=== PATIENT | male | born 1965 | race Caucasian/White ===

== ENCOUNTER 2020-02-12 17:16 | Emergency (ER) | payer OTHER, SELFPAY ==
[2020-02-12 17:35] VITALS: BP 97/58; PULSE 71; RESP 20; TEMP 36.7; BMI 22.8
--- NOTE | 2020-02-12 17:46 | ECG_ITS ---
Test Reason : SYNCOPY Blood Pressure : / mmHG Vent. Rate : 057 BPM Atrial Rate : 057 BPM P-R Int : 184 ms QRS Dur : 132 ms QT Int : 412 ms P-R-T Axes : 055 -43 019 degrees QTc Int : 401 ms Sinus bradycardia Left axis deviation Right bundle branch block Abnormal ECG When compared with ECG of 25-JAN-2015 16:54, Vent. rate has decreased BY 63 BPM Right bundle branch block has replaced Incomplete right bundle branch block Referred By: Yasmeen Cooper Electronically Signed By:REGINE WEAVER MD
--- NOTE | 2020-02-12 17:57 | XR_ITS ---
EXAMINATION: XR CHEST CLINICAL INFORMATION: Syncope. COMPARISON: 08/11/2017. TECHNIQUE: Frontal view of the chest was obtained. FINDINGS: No significant abnormality is noted involving the heart, lungs, mediastinum, bony thorax or soft tissues. XR/XR chest 1V IMPRESSION: Unremarkable examination.
--- NOTE | 2020-02-12 17:58 | CT_ITS ---
EXAMINATION: CT HEAD WITHOUT CONTRAST CT CERVICAL SPINE WITHOUT CONTRAST CLINICAL INFORMATION: Fall COMPARISON: CT head dated 01/17/2015. TECHNIQUE: Multidetector CT imaging of the head and cervical spine was performed without the use of intravenous contrast. Multiplanar reformats are reviewed. DLP: 984 mGy-cm. FINDINGS: There is a 3.5 x 4.0 x 3.1 cm fairly extra-axial mass within the left middle cranial fossa centered along the sphenoid ridge, with surrounding vasogenic edema within the left inferior frontal and adjacent left temporal lobes. No acute intracranial hemorrhage. There is mild mass effect resulting in partial effacement of the left temporal horn of the left lateral ventricle and medialization of the left parahippocampal gyrus. No herniation pattern. No extra-axial fluid collections are identified. The osseous structures and soft tissues are normal. The mastoid air cells and visualized portions of the paranasal sinuses are well-aerated. Atlantooccipital alignment is maintained. The vertebral bodies and posterior elements align normally. No acute fracture or subluxation. Vertebral body heights are maintained. Small endplate osteophytes present throughout the lower cervical spine. The paraspinal soft tissues are unremarkable. The imaged lung apices are clear CT/CT cervical spine wo con IMPRESSION: * No acute intracranial pathology. * There is a 4 cm extra-axial mass along the left sphenoid ridge favored representing a meningioma. There are surrounding low-attenuation changes within the left frontal and temporal lobes favored to represent perilesional edema. MRI of the brain without and with contrast recommended for further evaluation. * No cervical spine fracture or subluxation.
[2020-02-12 18:13] LABS: Basophils Absolute Auto 0.1 X10*3/uL (0.0-0.2); Eosinophils Absolute Auto 0.3 X10*3/uL (0.0-0.4); Eosinophils Percent Auto 3.4 % (0-4); Hematocrit 39.3 % (42-52); Hemoglobin 13.4 g/dl (14.0-18.0); Imm Gran Abs Auto 0.02 X10*3/uL (0.00-0.03); Imm Gran Pct Auto 0.3 % (0.0-0.4); Lymphocytes Absolute Auto 1.6 X10*3/uL (1.2-4.9); Lymphocytes Percent Auto 21.1 % (20-40); Mean Corpuscular HGB Conc 34.1 g/dl (31.0-36.0); Mean Corpuscular Hemoglobin 31.5 pg (27.0-33.0); Mean Corpuscular Volume 92.5 fL (80-98); Mean Platelet Volume 9.1 fL (9.4-12.4); Monocytes Absolute Auto 0.6 X10*3/uL (0.1-1.2); Monocytes Percent Auto 8.3 % (2-11); Neutrophils Percent Auto 65.9 % (45-73); Platelet Count 285 X10*3/uL (160-400); Red Blood Count 4.25 X10*6/uL (4.60-5.80); Red Cell Distribution Width 13.2 % (11.0-16.0); White Blood Count 7.6 X10*3/uL (4.8-10.8)
[2020-02-12 18:14] LABS: MANUAL DIFF FLAG NO
[2020-02-12 18:16] VITALS: O2SAT 98
[2020-02-12 18:40] LABS: Anion Gap 13 (12-20); Blood Urea Nitrogen 18 mg/dL (9-16); Calcium 8.6 mg/dL (8.4-10.2); Carbon Dioxide 29 mmol/L (22-29); Chloride 103 mmol/L (96-108); Creatinine Clr Calc Pharmacy 81.9; Estimated Glomerular Filt Rate > 60; Glucose Random 79 mg/dL (60-115); Potassium 3.8 mmol/l (3.3-5.1); Sodium 141 mmol/L (135-145)
[2020-02-12 18:44] LABS: Troponin-I High Sensitivity < 3.5 ng/L (<3.5-35.0)
--- NOTE | 2020-02-12 19:27 | ED_ITS ---
HPI - Syncope General Chief Complaint: Syncope Stated Complaint: Fall/Head Injury Time Seen by Provider: 02/12/20 17:57 Source: patient Mode of arrival: ambulatory Limitations: no limitations History of Present Illness HPI narrative: 55-year-old male with past medical history of Chronic headaches, hypertension and anxiety presents with an episode of syncope, and a head laceration. 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 He was sitting in a chair, did not hit his head or lose continence of bowel and bladder. He denies any symptoms at this time, denies chest pain or pressure, palpitations, shortness breath, abdominal pain, abdominal distention, dysuria, hematuria, and any other concerning symptoms. He does not recall when his last Tdap vaccine was given. MD complaint: loss of consciousness Onset (ago): minute(s) ( prior to arrival) -: second(s) Prodromal symptoms: headache Witnessed: Yes - by Bystander Context: other ( during wound care) Injuries sustained associated with event: none and other ( head laceration sustained prior to the syncopal episode) Current symptoms: back to baseline Treatments prior to arrival: none Related Data Home Medications Medication Instructions Recorded Confirmed albuterol sulfate 90 mcg/actuation INHALATION 01/26/20 aerosol inhaler amlodipine 2.5 mg tablet 2.5 mg PO DAILY 01/26/20 bupropion HCl 150 mg tablet,12 hr 150 mg PO BID 01/26/20 sustained-release clonazepam 1 mg tablet 1 mg PO BEDTIME PRN 01/26/20 fluoxetine 10 mg capsule 10 mg PO QAM 01/26/20 Previous Rx's Medication Instructions Recorded gltvbyrvrb-dnrpvureqnksk-nnrb 1 cap PO Q4-6H PRN #30 cap 02/12/20 [Fioricet] Allergies Allergy/AdvReac Type Severity Reaction Status Date / Time No Known Allergies Allergy Verified 01/24/20 12:04 [No Known Allergies*] Review of Systems Review of Systems: Constitutional: No Weight loss, No Fever, No Chills, No Night Sweats, No Fatigue, No Malaise ENT/Mouth: No Hearing loss, No Ear Pain, No Nasal Congestion, No Sinus Pain, No Hoarseness, No sore throat, No Rhinorrhea, No Swallowing Difficulty Eyes: No Eye Pain, No Swelling, No Redness, No Foreign Body, No Discharge, No Vision Changes Cardiovascular: No Chest Pain, No SOB, No Dyspnea on Exertion, No Orthopnea, No Edema, No Palpitations Respiratory: No Cough, No Sputum, No Wheezing, No Smoke Exposure, No Dyspnea Gastrointestinal: No Nausea, No Vomiting, No Diarrhea, No Constipation, No abdominal Pain, No Hematochezia, No Melena Genitourinary: no irregular bleeding, No Dysuria, No Urinary Frequency, No Hematuria, No Urinary Incontinence, No Urgency, No Flank Pain, No Urinary Flow Changes, No Hesitancy Musculoskeletal: No joint pain, No Myalgias, No Joint Swelling Skin: positive laceration to the top of his head, otherwise No Skin Lesions, No rash Neuro: positive syncope, positive headache, No Weakness, No Numbness, No Paresthesias, No Loss of Consciousness, No Dizziness Psych: No Anxiety/Panic, No Depression, No SI/HI/AH/VH, No Social Issues Heme/Lymph: No Bruising, No Bleeding,No Lymphadenopathy Endocrine: No Polyuria, No Polydipsia, No Temperature Intolerance Yes all other systems are reviewed and are negative [facility] Past Medical History Attestation statement: The following information was validated with the patient. Medical History (Updated 02/12/20 @ 19:32 by Yasmeen Cooper NP) Asthma Dermatitis Dyslipidemia Enlarged prostate HTN (hypertension) Psoriasis Renal calculi Surgical History History of deviated nasal septum History of kidney stones Family History Family History Father No problems noted. Mother Alzheimer's disease Sister No problems noted. Sister No problems noted. Daughter No problems noted. Daughter No problems noted. Social History Social History Alcohol intake: unknown Smoking Status: Unknown if ever smoked Tobacco Type: Cigarette Use of substances other than those prescribed or required for medical reasons: No Advance Directives: No Advance Directives Information Provided: Yes Physical Exam Vital Signs: Vital Signs: Last Vital Signs Temp 98.1 F 02/12/20 20:00 Pulse 70 02/12/20 20:00 Resp 20 02/12/20 20:00 BP 101/58 L 02/12/20 20:00 Pulse Ox 98 02/12/20 20:00 Body Mass Index 22.8 Appearance: Alert. Oriented X3. No acute distress. Head: Normal external exam. Normocephalic. Atraumatic. No Rosario signs noted. No raccoon eyes noted Eyes: PERRLA. EOMI. Conjunctiva and sclera normal. Eyelids normal. ENT: TM's Normal. Pharynx normal. Uvula midline. Moist mucous membranes. No trismus noted. No drooling noted. No muffled voice noted. Neck: Normal inspection. Neck supple. No adenopathy. Thyroid Normal. No meningeal signs. No neck mass noted. CVS: Normal heart rate and rhythm. Heart sound normal. No murmurs noted. Pulses equal to all extremities. Respiratory: No respiratory distress. Painless inspiration. Breath sounds normal. No wheezes/rales/rhonchi noted. Chest nontender. No accessory muscle usage noted or decreased air movement noted. Abdomen: Soft and nontender. Bowel sounds normal in all 4 quadrants. No distention noted. No organomegaly noted. No visible injury noted. Back: No CVA tenderness. Full range of motion noted. Skin: 4 cm superficial laceration -abrasion in linear formation to the scalp at the crown of the head, Skin warm and dry. Normal skin color. Normal skin turgor. No rashes/lesions/lacerations noted. Extremities: No lower extremity edema. Extremities exhibit normal range of motion. Extremities nontender. Neuro: cranial nerves 2-12 intact, no focal neural deficits, strength 5/5 to all extremities, No motor deficit. No sensory deficit. Reflexes normal. 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 He was seated at the time, and does not describe any other injuries. will rule out ACS, dehydration, and organic brain problems. CBC Chem 7-, troponins are negative. CT scan of the head shows a 4 cm meningioma, this finding was discussed in detail with the patient, patient requested to see the CT scan. CT scan was shown to the patient, meningioma area highlighted by radiologist discussed in detail with the patient. Patient would like to be referred to a neurologist at [facility], as he has had prior experience with this physician and would like this physician's opinion. Emotional support provided to patient and family. Family member was brought back per patient request. Although they are strict COVID-19 guidelines, patient is visibly upset and in need of emotional support by his . patient verbalized understanding of and agrees to plan of care to discharge home. MDM - Syncope Differential Diagnosis Differential diagnosis: Likely syncope due to orthostatic hypotension, vasovagal syncope, complete atrioventricular block, subarachnoid hemorrhage, pulmonary embolism and dehydration Medical Records Attestation: I reviewed the patient's medical records. Lab Data Attestation: I reviewed the patient's lab results. Result diagrams: 02/12/20 18:02/12/20 18:07 Labs: Lab Results 02/12/20 02/12/20 02/12/20 Range/Units 18:07 18:07 18:07 WBC 7.6 (4.8-10.8) X10*3/uL RBC 4.25 L (4.60-5.80) X10*6/uL Hgb 13.4 L (14.0-18.0) g/dl Hct 39.3 L (42-52) % MCV 92.5 (80-98) fL MCH 31.5 (27.0-33.0) pg MCHC 34.1 (31.0-36.0) g/dl RDW 13.2 (11.0-16.0) % Plt Count 285 (160-400) X10*3/uL MPV 9.1 L (9.4-12.4) fL Immature Gran % (Auto) 0.3 (0.0-0.4) % Neut % (Auto) 65.9 (45-73) % Lymph % (Auto) 21.1 (20-40) % Mineral % (Auto) 8.3 (2-11) % Eos % (Auto) 3.4 (0-4) % Baso % (Auto) 1.0 (0-2) % Lymph # (Auto) 1.6 (1.2-4.9) X10*3/uL Mineral # (Auto) 0.6 (0.1-1.2) X10*3/uL Eos # (Auto) 0.3 (0.0-0.4) X10*3/uL Baso # (Auto) 0.1 (0.0-0.2) X10*3/uL Abs Immat Gran (auto) 0.02 (0.00-0.03) X10*3/uL Absolute Neuts (auto) 5.0 (2.0-8.3) X10*3/uL Absolute Nucleated RBC 0.000 (0.0-0.012) X10*3/uL Nucleated RBC % (auto) 0.0 (0.0-0.2) /100WBC Sodium 141 (135-145) mmol/L Potassium 3.8 (3.3-5.1) mmol/l Chloride 103 (96-108) mmol/L Carbon Dioxide 29 (22-29) mmol/L Anion Gap 13 (12-20) BUN 18 H (9-16) mg/dL Creatinine 0.98 (0.5-1.4) mg/dL Estim Creat Clear Calc 81.9 Estimated GFR > 60 Random Glucose 79 (60-115) mg/dL Calcium 8.6 (8.4-10.2) mg/dL Troponin I High Sens < 3.5 (<3.5-35.0) ng/L Imaging Data CT scan - head: Attestation: I personally reviewed and interpreted this imaging study as follows: Radiologist's impression: EXAMINATION: CT HEAD WITHOUT CONTRAST CT CERVICAL SPINE WITHOUT CONTRAST CLINICAL INFORMATION: Fall COMPARISON: CT head dated 01/17/2015. TECHNIQUE: Multidetector CT imaging of the head and cervical spine was performed without the use of intravenous contrast. Multiplanar reformats are reviewed. DLP: 984 mGy-cm. FINDINGS: There is a 3.5 x 4.0 x 3.1 cm fairly extra-axial mass within the left middle cranial fossa centered along the sphenoid ridge, with surrounding vasogenic edema within the left inferior frontal and adjacent left temporal lobes. No acute intracranial hemorrhage. There is mild mass effect resulting in partial effacement of the left temporal horn of the left lateral ventricle and medialization of the left parahippocampal gyrus. No herniation pattern. No extra-axial fluid collections are identified. The osseous structures and soft tissues are normal. The mastoid air cells and visualized portions of the paranasal sinuses are well-aerated. Atlantooccipital alignment is maintained. The vertebral bodies and posterior elements align normally. No acute fracture or subluxation. Vertebral body heights are maintained. Small endplate osteophytes present throughout the lower cervical spine. The paraspinal soft tissues are unremarkable. The imaged lung apices are clear CT/CT cervical spine wo con IMPRESSION: * No acute intracranial pathology. * There is a 4 cm extra-axial mass along the left sphenoid ridge favored representing a meningioma. There are surrounding low-attenuation changes within the left frontal and temporal lobes favored to represent perilesional edema. MRI of the brain without and with contrast recommended for further evaluation. * No cervical spine fracture or subluxation. Chest x-ray: Attestation: I personally reviewed and interpreted this imaging study as follows: Radiologist's impression: EXAMINATION: XR CHEST CLINICAL INFORMATION: Syncope. COMPARISON: 08/11/2017. TECHNIQUE: Frontal view of the chest was obtained. FINDINGS: No significant abnormality is noted involving the heart, lungs, mediastinum, bony thorax or soft tissues. XR/XR chest 1V IMPRESSION: Unremarkable examination. Discharge Plan Discharge Clinical Impression: Meningioma Syncope Qualifiers: Syncope type: unspecified Qualified Code(s): R55 - Syncope and collapse Patient Disposition: Home, Self-Care Instructions: Meningioma (ED), Brain Tumors (DC) Additional Instructions: you were evaluated for a syncopal episode. You sustained a laceration to the top of your head. please continue to clean the wound and apply topical antibiotic ointment. Your CT scan showed a 4 cm meningioma. We have referred you to a neurosurgeon. Please call and make an appointment. We prescribed Fioricet for headaches. Please take this medication as directed. Thank you for choosing this emergency department for evaluation. Please follow-up with primary care physician as needed. Return to the emergency department for any new, concerning, or worsening symptoms. Prescriptions: New eqadpdkhcg-msqkjxtgvgahn-msja [Fioricet] 50-300-40 mg capsule 1 cap PO Q4-6H PRN (Reason: headache) Qty: 30 RF: 0 No Action bupropion HCl 150 mg tablet sustained-release 12 hr 150 mg PO BID RF: 0 albuterol sulfate 90 mcg/actuation HFA aerosol inhaler inhalation RF: 0 fluoxetine 10 mg capsule 10 mg PO QAM RF: 0 amlodipine 2.5 mg tablet 2.5 mg PO DAILY RF: 0 clonazepam 1 mg tablet 1 mg PO BEDTIME PRNRF: 0 Referrals: Jeni Puri MD [Physician] - 2 days ( meningioma) Interventions: ED Discharge Assessment Last Done: 02/12/20 19:49 Discharge Date/Time: 02/12/20 20:04
[2020-02-12 20:00] VITALS: BP 101/58; PULSE 70; RESP 20; TEMP 36.7; O2SAT 98
== END 2020-02-12 20:04 | disposition home or self-care (01) ==
PROVIDERS: Nurse Practitioner Family; Emergency Provider Emergency Medicine; PCP Nurse Practitioner Family
DX: S09.90XA Unspecified injury of head, initial encounter (principal); D32.9 Benign neoplasm of meninges, unspecified; R55 Syncope and collapse; M54.2 Cervicalgia; F41.1 Generalized anxiety disorder; F43.0 Acute stress reaction; G44.309 Post-traumatic headache, unspecified, not intractable; W18.30XA Fall on same level, unspecified, initial encounter; Y93.9 Activity, unspecified; Y92.009 Unspecified place in unspecified non-institutional (private) residence as the place of occurrence of the external cause; Y99.9 Unspecified external cause status; Z79.899 Other long term (current) drug therapy; F17.210 Nicotine dependence, cigarettes, uncomplicated; Z71.6 Tobacco abuse counseling
CPT/HCPCS: 36415; 70450; 71045; 72125; 80048; 84484; 85025; 93005; 99284; 99285

== ENCOUNTER 2020-02-25 07:16 | Outpatient (REF) | payer OTHER, SELFPAY ==
--- NOTE | 2020-02-25 | XR_ITS ---
EXAMINATION: ORBITAL RADIOGRAPHS CLINICAL INFORMATION: Pre-MRI orbits. Patient stated possible metal to left eye. COMPARISON: CT head 02/12/2020. TECHNIQUE: AP, Spring, lateral radiographs of the orbits. FINDINGS: Multifocal dental amalgam is noted. No intraorbital radiopaque foreign bodies are visualized. No gross asymmetry in opacification of the paranasal sinuses is noted. No suspicious osseous lesions are noted. XR/XR pre mri screening IMPRESSION: No intraorbital radiopaque foreign bodies.
--- NOTE | 2020-02-25 08:15 | MR_ITS ---
MR BRAIN WITHOUT AND WITH IV CONTRAST CLINICAL INFORMATION: Severe headache. Brain tumor. COMPARISON: Head CT 02/12/2020. TECHNIQUE: Multiplanar, multisequence MRI of the brain was obtained before and after the intravenous administration of 7 mL Gadavist. FINDINGS: Stable appearing large 4.3 cm TV by 3.6 cm AP by 3.6 cm CC homogeneously enhancing extra-axial mass within the inferior aspect of the left sylvian fissure sharing a broad dural attachment to the anterior margin of the left middle cranial fossa that remains most compatible with a meningioma. The meningioma results in mass effect on the adjacent inferior left frontal and anterior left temporal lobes and the left middle cerebral artery sylvian branches are draped along the posterior and upper aspect of the mass. There is no hydrocephalus, extra-axial surface collection, or herniation. The major flow voids at the skull base are preserved. There is no acute infarct on diffusion-weighted imaging. There is no intracranial hemorrhage on the gradient recalled echo acquisition. The midline structures are normal. The cerebellar tonsils are normally positioned. The cerebellum and brainstem are normal. The craniocervical junction is normal. Osseous marrow signal intensity is homogenous. The visualized soft tissues are unremarkable. Mild mucosal thickening within the frontal sinus. MR/MR head/brain wo/w con IMPRESSION: Redemonstration of a large up to 4.3 cm extra-axial mass that remains most suggestive of an inferior left parasylvian meningioma. There is adjacent brain parenchymal edema within the inferior left frontal and the left temporal white matter. The meningioma results in mass effect on the adjacent inferior left frontal and anterior left temporal lobes and the left middle cerebral artery sylvian branches are draped along the posterior and upper aspect of the mass.
== END 2020-02-25 07:17 | disposition home or self-care (01) ==
LOC: HO.MRI 07:16
PROVIDERS: Visit Provider Neurological Surgery
DX: D49.6 Neoplasm of unspecified behavior of brain (principal); R51.9 Headache, unspecified
CPT/HCPCS: 70553; A9585

== ENCOUNTER 2020-10-19 07:18 | Outpatient (REF) | payer OTHER, SELFPAY ==
[2020-10-19 11:25] LABS: Glucose Urine UA NEG (NEG); Leukocyte Esterase Urine NEG (NEG); Nitrite Urine NEG (NEG); PH 5.5 (5.0-8.0); Specific Gravity - Urine 1.025 (1.005-1.025); Urine Blood 2+ (NEG); Urine Ketones >=80 MG/DL (NEG); Urine Protein NEG (NEG-TRACE)
[2020-10-19 11:29] LABS: Appearance Urine CLEAR; Color Urine YELLOW
[2020-10-19 11:35] LABS: WBC Urine 0 /HPF (0-4)
[2020-10-19 11:59] LABS: Alanine Aminotransferase 14 U/L (0-40); Albumin Level 4.3 g/dL (3.5-5.0); Alkaline Phosphatase 47 U/L (39-117); Anion Gap 12 (12-20); Aspartate Amino Transferase 21 U/L (5-37); Blood Urea Nitrogen 15 mg/dL (9-16); Calcium 9.2 mg/dL (8.4-10.2); Carbon Dioxide 28 mmol/L (22-29); Chloride 104 mmol/L (96-108); Cholesterol 234 mg/dL; Estimated Glomerular Filt Rate > 60; Glucose Fasting 90 mg/dL (60-99); HDL Cholesterol 95 mg/dL; LDL Cholesterol Calculated 123 mg/dl; Potassium 4.8 mmol/L (3.3-5.1); Sodium 139 mmol/L (135-145); Total Protein 6.7 g/dL (6.5-8.0); Triglycerides 81 mg/dL
[2020-10-19 12:09] LABS: TSH reflex Free T4 0.63 uIU/mL (0.32-4.0)
[2020-10-19 12:39] LABS: Prostate Specific Antigen Scr 0.72 ng/mL (<0.05-4.0)
== END 2020-10-19 07:19 | disposition home or self-care (01) ==
LOC: HO.HMGCLDS 07:18
PROVIDERS: PCP Nurse Practitioner Family; Visit Provider Nurse Practitioner Family
DX: Z00.00 Encounter for general adult medical examination without abnormal findings (principal); Z12.5 Encounter for screening for malignant neoplasm of prostate
CPT/HCPCS: 36415; 80053; 80061; 81001; 84153; 84443

== ENCOUNTER 2021-02-13 | Outpatient (REF) | payer OTHER, SELFPAY | END 2021-02-13 00:01 | disposition home or self-care (01) | LOC: HO.LNP | PROVIDERS: Visit Provider Nurse Practitioner Family | DX: Z13.89 Encounter for screening for other disorder (principal) ==

== ENCOUNTER 2021-02-14 11:26 | Outpatient (REF) | payer OTHER, SELFPAY | END 2021-02-14 11:27 | disposition home or self-care (01) | LOC: HO.LNP 11:26 | PROVIDERS: Visit Provider Nurse Practitioner Family | DX: R10.9 Unspecified abdominal pain (principal) | CPT/HCPCS: 87086 ==

== ENCOUNTER 2021-03-05 10:16 | Outpatient (REF) | payer OTHER, SELFPAY ==
--- NOTE | ~2021-03-05 | US_ITS ---
EXAMINATION: US RETROPERITONEAL LIMITED (RENAL ONLY) CLINICAL INFORMATION: Unspecified abdominal pain. COMPARISON: CT abdomen and pelvis without and with contrast dated 01/08/2019. Renal ultrasound with bladder dated 11/13/2018. TECHNIQUE: Real-time imaging of the kidneys. FINDINGS: RIGHT KIDNEY: 11.3 x 4.2 x 6.2 cm (SAG x AP x TRV). The kidney is normal in size, contour, and echogenicity. Renal cortical thickness is normal. No calculi or focal parenchymal lesions. No hydronephrosis. There are multiple echogenic foci without shadowing or twinkle artifact. Small radiopaque calculi were seen on the previous CT abdomen exam 01/08/2019. LEFT KIDNEY: 11.7 x 5.5 x 6.1 cm (SAG x AP x TRV). The kidney is normal in size, contour, and echogenicity. Renal cortical thickness is normal. No focal parenchymal lesions or hydronephrosis. There are 2 echogenic stones seen in the left kidney midpole measuring 0.23 x 0.18 x 0.20 cm and 0.28 x 0.24 x 0.30 cm. There are multiple echogenic foci non-shadowing with no twinkle artifact. There is no caliectasis. US/US renal BI IMPRESSION: Multiple bilateral echogenic foci without shadowing or twinkle artifact. There are 2 new echogenic nonobstructive calculi in midpole left kidney. Previous CT visualized 2 radiopaque calculi in the midpole and lower pole right kidney which are not visualized by ultrasound on today's exam.
== END 2021-03-05 10:17 | disposition home or self-care (01) ==
LOC: HO.HMGCX 10:16
PROVIDERS: PCP Nurse Practitioner Family; Visit Provider Nurse Practitioner Family
DX: R10.9 Unspecified abdominal pain (principal)
CPT/HCPCS: 76775

== ENCOUNTER 2021-04-10 09:14 | Outpatient (REF) | payer OTHER, SELFPAY ==
[2021-04-10 11:47] LABS: MANUAL DIFF FLAG NO
[2021-04-10 11:51] LABS: Hematocrit 47.1 % (42.0-52.0); Hemoglobin 15.8 g/dl (14.0-18.0); Mean Corpuscular Volume 90.9 fL (80.0-98.0); Red Blood Count 5.18 X10*6/uL (4.60-5.80); White Blood Count 6.4 X10*3/uL (4.8-10.8)
[2021-04-10 11:52] LABS: Basophils Absolute Auto 0.1 X10*3/uL (0.0-0.2); Basophils Percent Auto 1.3 % (0-2); Eosinophils Absolute Auto 0.2 X10*3/uL (0.0-0.4); Eosinophils Percent Auto 2.5 % (0-4); Imm Gran Abs Auto 0.01 X10*3/uL (0.00-0.03); Imm Gran Pct Auto 0.2 % (0.0-0.4); Lymphocytes Percent Auto 31.2 % (20-40); Mean Corpuscular HGB Conc 33.5 g/dl (31.0-36.0); Mean Corpuscular Hemoglobin 30.5 pg (27.0-33.0); Mean Platelet Volume 9.1 fL (9.4-12.4); Monocytes Absolute Auto 0.6 X10*3/uL (0.1-1.2); Monocytes Percent Auto 8.8 % (2-11); Neutrophils Absolute Auto 3.6 x10*3/uL (2.0-8.3); Platelet Count 348 X10*3/uL (160-400); Red Cell Distribution Width 13.5 % (11.0-16.0)
[2021-04-10 12:21] LABS: Alanine Aminotransferase 15 U/L (0-40); Albumin Level 4.9 g/dL (3.5-5.0); Alkaline Phosphatase 44 U/L (39-117); Anion Gap 10 (12-20); Aspartate Amino Transferase 19 U/L (5-37); Bilirubin Total 1.2 mg/dL (0.0-1.0); Blood Urea Nitrogen 12 mg/dL (9-16); C Reactive Protein 0.05 mg/dL (< or = 0.50); Calcium 10.1 mg/dL (8.4-10.2); Carbon Dioxide 30 mmol/L (22-29); Chloride 105 mmol/L (96-108); Estimated Glomerular Filt Rate > 60; Glucose Random 100 mg/dL (60-115); Potassium 4.4 mmol/L (3.3-5.1); Sodium 141 mmol/L (135-145); Total Protein 7.6 g/dL (6.5-8.0)
[2021-04-10 12:33] LABS: Ferritin 21 ng/mL (20-250); TSH reflex Free T4 1.43 uIU/mL (0.32-4.0); Vitamin D 25-OH Total 22.4 ng/mL (>30)
[2021-04-10 12:52] LABS: Folate 12.3 ng/mL (> or = 4.0)
[2021-04-10 13:54] LABS: Vitamin B12 444 pg/mL (200-900)
[2021-04-10 14:30] LABS: H Pylori Breath Test Negative (Negative)
[2021-04-11 07:47] LABS: HBc Num1 0.08 S/CO (0.00-0.79); HBsAGNum1 0.46 S/CO (0.00-0.99); Hepatitis B Core Antibody Nonreactive (Nonreactive); Hepatitis B Surface Antigen Negative (Negative); ~HepC Num1 0.05 S/CO (0.00-0.79); ~Hepatitis C Antibody Nonreactive (Nonreactive)
[2021-04-11 08:28] LABS: HBS Num1 0.21 mIU/mL (0-7.99); Hepatitis A Antibody IgM 0.13 Index (0-0.79); ~Hepatitis A Antibody IgM Nonreactive (Nonreactive); ~Hepatitis B Surface Antibody NONREACTIVE (Nonreactive)
[2021-04-13 06:46] LABS: Transglutaminase Ab IgG <1.0 U/mL; Transglutaminase IgA <1.0 U/mL
[2021-04-13 11:37] LABS: IgA 244 mg/dL (47-310); IgG 697 mg/dL (600-1640); IgM 14 mg/dL (50-300)
[2021-04-14 04:37] LABS: Zinc 78 mcg/dL (60-130)
[2021-04-14 10:36] LABS: Vitamin B6 8.6 ng/mL (2.1-21.7)
[2021-04-14 14:27] LABS: Nicotinamide <20 ng/mL; Vit B3 - Nicotinic Acid <20 ng/mL
[2021-04-14 16:06] LABS: Vitamin C 1.1 mg/dL (0.2-2.1)
[2021-04-15 12:26] LABS: Alpha-Tocopherol 14.3 mg/L (5.7-19.9); Beta-Gamma Tocopherol <1.0 mg/L (<=4.3); Vitamin A 40 mcg/dL (38-98)
[2021-04-16 09:51] LABS: Vitamin K1 324 pg/mL (130-1500)
[2021-04-16 17:47] LABS: Vitamin B5 (Pantothenic Acid) <40 ng/mL (<275)
== END 2021-04-10 09:15 | disposition home or self-care (01) ==
LOC: HO.LAB 09:14
PROVIDERS: PCP Nurse Practitioner Family; Referring Provider Nurse Practitioner Family; Visit Provider Internal Medicine Gastroenterology
DX: R10.33 Periumbilical pain (principal); R19.5 Other fecal abnormalities; K75.81 Nonalcoholic steatohepatitis (NASH); G89.29 Other chronic pain
CPT/HCPCS: 36415; 80053; 82180; 82306; 82607; 82728; 82746; 82784; 83013; 84207; 84443; 84446; 84590; 84591; 84597; 84630; 85025; 86140; 86364; 86704; 86706; 86709; 86803; 87340

== ENCOUNTER 2021-05-01 09:13 | Outpatient (REF) | payer OTHER, SELFPAY ==
--- NOTE | ~2021-05-01 | CT_ITS ---
EXAMINATION: CT ABDOMEN AND PELVIS WITH CONTRAST CLINICAL INFORMATION: Abdominal pain. COMPARISON: None TECHNIQUE: Multidetector volumetric images were obtained from the superior aspect of the liver through the pubic symphysis following administration 85 mL of Omnipaque 350 intravenous contrast. Sagittal and coronal reformatted images were obtained on the technologist's workstation. Oral contrast: [address] examination was performed using dose optimization techniques as appropriate, variously including the following: *Automated exposure control *Adjustment of mA and/or kV according to patient size (this includes techniques or standardized protocols for targeted exams where dose is matched to indication/reason for exam; i.e. extremities or head) *Use of iterative reconstruction technique DLP: 276 mGy-cm FINDINGS: LUNG BASES: The lung bases are clear. The heart size is normal. LIVER, GALLBLADDER, AND BILIARY TREE: The liver is normal in size, shape, and attenuation. No focal hepatic lesion or biliary ductal dilatation is present. The gallbladder is unremarkable with no evidence of radiopaque gallstones, gallbladder wall thickening, or obvious pericholecystic inflammatory changes. PANCREAS: Unremarkable. SPLEEN: Unremarkable. ADRENAL GLANDS: Unremarkable. KIDNEYS AND URETERS: The kidneys are normal in size, shape, and attenuation. No hydronephrosis, hydroureter, or calculi seen. No perinephric stranding. BLADDER: Unremarkable. GASTROINTESTINAL TRACT: There is scattered stool, gas and oral contrast seen throughout the colon without distention. The small bowel loops are normal caliber. Appendix is not visualized. The stomach is nondistended with oral contrast. No free air or free fluid seen. ABDOMINAL WALL: No significant hernia is appreciated. LYMPH NODES: Normal. VASCULAR: The abdominal aorta is normal caliber. Mild ectasia of both common iliac arteries. PELVIC VISCERA: The prostate gland is enlarged with peripherally-based central gland calcification. The periprostatic fat planes are preserved. No abnormal pelvic or inguinal lymph nodes seen. There is no free fluid. OSSEOUS STRUCTURES: No lytic or sclerotic process seen. CT/CT abdomen pelvis w con IMPRESSION: No acute intra-abdominal process seen. Mild colonic diverticulosis, constipation without diverticulitis. Appendix is not visualized. Fleischner guidelines were followed.
[2021-05-01] MEDS: Barium Sulfate Oral (Vanilla) 450 ML ORAL.SUSP 900 ML PO (12:13)
[2021-05-01] MEDS: iohexoL 350 MG/ML 100 ML INFUS..BTL 85 ML IV (12:14)
== END 2021-05-01 09:14 | disposition home or self-care (01) ==
LOC: HO.CT 09:13
PROVIDERS: Visit Provider Nurse Practitioner Family
DX: R19.5 Other fecal abnormalities (principal); R10.9 Unspecified abdominal pain
CPT/HCPCS: 74177; Q9967

== ENCOUNTER 2021-05-16 08:25 | Outpatient (REF) | payer OTHER, SELFPAY ==
[2021-05-16 12:20] LABS: Prostate Specific Antigen Scr 0.67 ng/mL (<0.05-4.0)
== END 2021-05-16 08:26 | disposition home or self-care (01) ==
LOC: HO.HMGCLDS 08:25
PROVIDERS: PCP Nurse Practitioner Family; Visit Provider Internal Medicine Gastroenterology
DX: Z12.5 Encounter for screening for malignant neoplasm of prostate (principal); N40.0 Benign prostatic hyperplasia without lower urinary tract symptoms
CPT/HCPCS: 36415; 84153

== ENCOUNTER 2021-05-20 | Outpatient (REF) | payer OTHER, SELFPAY ==
[2021-05-27 02:41] LABS: Lactoferrin, Fecal, Quant. <30.0 mcg/mL
[2021-05-27 19:22] LABS: Pancreatic Elastase-1 >500 mcg/g
== END 2021-05-20 00:01 | disposition home or self-care (01) ==
LOC: HO.LNP
PROVIDERS: Visit Provider Internal Medicine Gastroenterology
DX: R19.5 Other fecal abnormalities (principal); R10.9 Unspecified abdominal pain; C19 Malignant neoplasm of rectosigmoid junction
CPT/HCPCS: 82656; 83631

== ENCOUNTER → 2021-07-09 08:49 | Outpatient (BNVA) | payer OTHER, SELFPAY | PROVIDERS: PCP Nurse Practitioner Family; Referring Provider Nurse Practitioner Family; Visit Provider Internal Medicine Gastroenterology | DX: Z13.89 Encounter for screening for other disorder (principal) ==

== ENCOUNTER 2021-07-11 07:41 | Day surgery (SDC) | payer OTHER, SELFPAY ==
--- NOTE | 2021-07-10 09:44 | HO.ANESPROP2 ---
Documented by User: Sandra Lay NP 07/10/21 09:46 HPI - Anesthesia Eval Consult details Narrative: 56yo M for Upper Endoscopy and Colonoscopy FOR[facility] Active Problems Active Problems: All Active Problems (Updated 07/09/21 @ 09:13 by Linda Ruiz MD) Abnormal bowel habits (Acute) Positive colorectal cancer screening using Cologuard test (Acute) Left flank pain (Acute) Microhematuria (Acute) Headache (Acute) Allergies (Acute) Pre-op evaluation (Acute) Meningioma (Acute) Cold hands and feet (Acute) HTN (hypertension) (Acute) Screening PSA (prostate specific antigen) (Acute) Past Medical History Medical History Asthma Dermatitis Dyslipidemia Enlarged prostate HTN (hypertension) Hx of benign neoplasm of brain Meningioma Positive colorectal cancer screening using Cologuard test Psoriasis Renal calculi Family History Family History Father No problems noted. Mother Alzheimer's disease Sister No problems noted. Sister No problems noted. Daughter No problems noted. Daughter No problems noted. Surgical History Surgical History History of deviated nasal septum History of kidney stones Social History Social History Alcohol intake: unknown Patient Tobacco Use Status: Current everyday Tobacco user Tobacco use type: Cigarette Cigarettes Per Day: 5 Years Smoked: 6 Smoked in Last 30 Days: Yes Use of substances other than those prescribed or required for medical reasons: Yes Substance Use Frequency: Occasionally Are you DNR?: No Advance Directives: No Advance Directives Information Provided: Yes Meds Allergies Allergy/AdvReac Type Severity Reaction Status Date / Time No Known Allergies Allergy Verified 07/11/21 09:35 [No Known Allergies*] Exam Exam Date and Time: July 10, 2021 0944 Pertinent Lab Results Pertinent Lab Results: Laboratory Tests 04/10/21 04/10/21 11:45 11:45 WBC 6.4 Hgb 15.8 Hct 47.1 Plt Count 348 Sodium 141 Potassium 4.4 Chloride 105 Carbon Dioxide 30 H BUN 12 Creatinine 0.81 Documented by User: Monica Saucedo MD 07/11/21 09:43 PMF Past Medical History Medical History Asthma Dermatitis Dyslipidemia Enlarged prostate HTN (hypertension) Hx of benign neoplasm of brain Meningioma Positive colorectal cancer screening using Cologuard test Psoriasis Renal calculi Family History Family History Father No problems noted. Mother Alzheimer's disease Sister No problems noted. Sister No problems noted. Daughter No problems noted. Daughter No problems noted. Surgical History Surgical History History of deviated nasal septum History of kidney stones History of Problems with Anesthesia: No Social History Social History Alcohol intake: unknown Patient Tobacco Use Status: Current everyday Tobacco user Tobacco use type: Cigarette Cigarettes Per Day: 5 Years Smoked: 6 Smoked in Last 30 Days: Yes Use of substances other than those prescribed or required for medical reasons: Yes Substance Use Frequency: Occasionally Are you DNR?: No Advance Directives: No Advance Directives Information Provided: Yes Meds Allergies Allergy/AdvReac Type Severity Reaction Status Date / Time No Known Allergies Allergy Verified 07/11/21 09:35 [No Known Allergies*] Exam Airway Mallampati Class: II TM Dist: >3cm Neck ROM: Full Loose/Missing/Broken Teeth: No Heart: RRR Lungs: CTA Assessment and Plan Assessment Anesthesia Assessment: Anesthesia Plan Discussed and Chart Reviewed Final Anesthetic Review History of Problems with Anesthesia: No NPO: Yes ASA Class: II Final Preanesthetic Review: Meds/Allgs Chart Reviewed, Consent Obtained/Reviewed and Anes Risks/Benef Reviewed Patient Risk: Low Procedure Risk: Intermediate Anesthetic Plan Anesthetic Plan: MAC: Disposition: Standard PACU
--- NOTE | 2021-07-11 09:01 | MHC.SHP ---
Pre-Procedural Eval Section A Date of Service: 07/11/21 The patient is an INPATIENT: No The History & Physical has been completed within 30 days and I have reviewed it.: Yes Section B Chief Complaint: nausea Present Medications: see Short Stay Collaborative assessment Medical History: Significant History (Asthma Dermatitis Dyslipidemia Enlarged prostate HTN (hypertension) Hx of benign neoplasm of brain Meningioma Positive colorectal cancer screening using Cologuard test Psoriasis Renal calculi) Allergies: Allergies Allergy/AdvReac Type Severity Reaction Status Date / Time No Known Allergies Allergy Verified 07/09/21 08:54 [No Known Allergies*] Review of Systems Sugical H&P ROS: Negative: Constitution, Cardiovascular, Respiratory, Neurological, Psychiatric, Hem-Onc, Allergic/Immunologic, Gastrointestinal, Genitourinary, Musculoskeletal, Integumentary, Endocrine and Eyes/Ears/Nose/Throat Exam Surgical H&P Exam: Normal: HEENT, Normal: Heart, Normal: Lungs, Normal: Extremities, Normal: Abdomen, Normal: Skin and Normal: Neurological Plan Diagnosis/Plan: Unchanged I have reviewed the history and physical and performed a pertinent physical examination on my patient. No changes have occurred unless specified.
[2021-07-11 09:12] VITALS: BMI 22.8
[2021-07-11 09:17] VITALS: BP 102/75; PULSE 54; RESP 16; TEMP 36.3; O2SAT 98
[2021-07-11] MEDS: Lactated Ringers 1,000 ML 100 ML IVCONT (09:45)
--- NOTE | 2021-07-11 09:47 | PM.OP ---
Brief Operative Note Date of Service: 07/11/21 Pre-op diagnosis: nausea, weight loss, pos cologuard, tenesmus Post-op diagnosis: same Procedure: see op note Surgeon: Linda Ruiz MD Anesthesia: MAC Was an Airport Attendant used for this Procedure?: No Estimated blood loss (mL): 0 Condition: stable Disposition: PACU
--- NOTE | 2021-07-11 09:48 | P.OP_ITS ---
Operative Note Operative Note Date of Service: 07/11/21 Narrative: Operative Information Procedure Description: EGD, Colonoscopy Indication: nausea, weight loss, pos cologuard, tenesmus Anesthesia: MAC FLEXIBLE TRANSORAL UPPER GASTROINTESTINAL ENDOSCOPY AND COLONOSCOPY PROCEDURE NOTE UPPER ENDOSCOPY Consent: Indications for the procedure and potential complications of bleeding, perforation, reaction to medications and missed diagnosis were discussed with the patient and informed consent was obtained. Instrument: Olympus GIF H 190 J mid size upper endoscope Monitoring: Vital signs and clinical assessment, continuous EKG monitoring, Pulse oximetry, Carbon Dioxide monitoring and blood pressure monitoring were done throughout the procedure. Procedure: The patient was placed in the left lateral decubitis position and pre-procedure medications were administered and a bite block was placed. The endoscope was inserted into the mouth and advanced under direct vision to the third part of duodenum. A careful inspection was made as the upper endoscope was withdrawn including a retroflexed examination of the proximal stomach; Findings and interventions are described below. Findings: Larynx:normal Esophagus: GE junction at 40 cm, diaphragm hiatus at 40 cm, mild esophagitis, bx taken from GEJ and random esophagus Stomach: Patchy erythema bharat at antrum. Biopsies were obtained. Grade 2 flap valve on retroflexed examination of the cardia. pylorus was a little tight but scope went thru with gentle pressure. Duodenum: Mild bulbar duodenitis, bx taken Intervention: Biopsies as noted above COLONOSCOPY Instrument: Olympus variable stiffness pediatric scope 190L Colonoscopy Monitoring: Vital signs and clinical assessment, continuous EKG monitoring, Pulse oximetry, Carbon Dioxide monitoring and blood pressure monitoring were done throughout the procedure. Colon withdrawal time was 11 minutes. Procedure: The patient was placed in the left lateral decubitis position and pre-procedure medications were administered. After a digital rectal examination of the ano-rectum, the video colonoscope was inserted into the rectum and advanced through the colon to the cecum/TI. The colonoscope was slowly withdrawn in a retrograde panoramic fashion and the colon mucosa was carefully examined including a retroflexed view of the rectum. Findings and interventions are described below. Procedure Difficulty: easy Findings: Terminal Ileum-normal, bx taken Right sided retroflexion was normal, random colon bx were taken Cecum:normal Ascending Colon: normal Transverse Colon -normal Descending Colon:normal Sigmoid Colon: normal Rectum: Retroflexion with moderately large inflammed internal hemorrhoids, grade I Anorectum - normal Colon preparation: [place] Bowel Preparation Scale Right colon; 2 Transverse colon: 2 Left colon; 2 (0 = Unprepared colon segment with mucosa not seen due to solid stool that cannot be cleared. 1 = Portion of mucosa of the colon segment seen, but other areas of the colon segment not well seen due to staining, residual stool and/or opaque liquid. 2 = Minor amount of residual staining, small fragments of stool and/or opaque liquid, but mucosa of colon segment seen well. 3 = Entire mucosa of colon segment seen well with no residual staining, small fragments of stool or opaque liquid) Impression and Post Procedure Diagnosis: Endoscopy Findings: gastritis esophagitis duodenitis Colonoscopy Findings: internal hemorrhoids Plan: Await Pathology results Repeat Colonoscopy in 10 years or earlier if clinically indicated High fiber diet leaflet avoid straining at stool, epsom salts and sitz bath, anusol supps or cream can refer surgery for hemorrhoids, if ongoing symptoms of tenesmus trial of PPI if not taking Above findings were reviewed with the patient and relevant handouts were provided if indicated.
[2021-07-11 10:33] VITALS: BP 108/64; PULSE 63; RESP 14; TEMP 36.1; O2SAT 100
[2021-07-11 10:48] VITALS: BP 124/82; PULSE 52; RESP 16; O2SAT 98
[2021-07-11 10:50] VITALS: PULSE 56
== END 2021-07-11 11:25 | disposition home or self-care (01) ==
PROVIDERS: PCP Nurse Practitioner Family; Visit Provider Internal Medicine Gastroenterology
PROC: (CPT 45380; principal; 2021-07-11 10:00)
DX: R19.5 Other fecal abnormalities (principal); K64.0 First degree hemorrhoids; K29.50 Unspecified chronic gastritis without bleeding; K20.90 Esophagitis, unspecified without bleeding; K29.80 Duodenitis without bleeding; R63.4 Abnormal weight loss; Z68.22 Body mass index [BMI] 22.0-22.9, adult; K44.9 Diaphragmatic hernia without obstruction or gangrene; N40.0 Benign prostatic hyperplasia without lower urinary tract symptoms; I10 Essential (primary) hypertension; J45.909 Unspecified asthma, uncomplicated; D32.9 Benign neoplasm of meninges, unspecified; Z86.011 Personal history of benign neoplasm of the brain; E78.5 Hyperlipidemia, unspecified; Z87.442 Personal history of urinary calculi; F17.210 Nicotine dependence, cigarettes, uncomplicated
CPT/HCPCS: 45380; 43239; 88305; 88342; J3010

== ENCOUNTER → 2021-08-13 13:34 | Outpatient (BNVA) | payer OTHER, SELFPAY | PROVIDERS: PCP Nurse Practitioner Family; Referring Provider Nurse Practitioner Family; Visit Provider Internal Medicine Gastroenterology | DX: R19.8 Other specified symptoms and signs involving the digestive system and abdomen (principal) ==

== ENCOUNTER 2021-09-18 15:46 | Outpatient (REF) | payer OTHER, SELFPAY ==
--- NOTE | ~2021-09-18 | XR_ITS ---
EXAMINATION: CR X-RAY LUMBAR AND SACROILIAC JOINTS CLINICAL INFORMATION: Low back pain. COMPARISON: Lumbar spine radiographs dated 12/16/2016. TECHNIQUE: 3 views each of the lumbar spine and sacroiliac joints were obtained. FINDINGS: Lumbar spine: Minimal lumbar levoscoliosis with apex at L2-L3. Mild multilevel disc space narrowing and marginal osteophyte formation. There is no acute fracture. The soft tissues are unremarkable. Sacroiliac joints: No significant degenerative changes. No acute fracture or dislocation. The soft tissues are unremarkable. XR/XR sacroiliac joint min 3V IMPRESSION: 1. Minimal lumbar levoscoliosis and mild multilevel degenerative changes without acute abnormality or significant change. 2. No significant sacroiliac degenerative joint changes.
--- NOTE | ~2021-09-18 | XR_ITS ---
EXAMINATION: CR X-RAY LUMBAR AND SACROILIAC JOINTS CLINICAL INFORMATION: Low back pain. COMPARISON: Lumbar spine radiographs dated 12/16/2016. TECHNIQUE: 3 views each of the lumbar spine and sacroiliac joints were obtained. FINDINGS: Lumbar spine: Minimal lumbar levoscoliosis with apex at L2-L3. Mild multilevel disc space narrowing and marginal osteophyte formation. There is no acute fracture. The soft tissues are unremarkable. Sacroiliac joints: No significant degenerative changes. No acute fracture or dislocation. The soft tissues are unremarkable. XR/XR lumbar spine 2-3V IMPRESSION: 1. Minimal lumbar levoscoliosis and mild multilevel degenerative changes without acute abnormality or significant change. 2. No significant sacroiliac degenerative joint changes.
== END 2021-09-18 15:47 | disposition home or self-care (01) ==
LOC: HO.HMGCX 15:46
PROVIDERS: PCP Nurse Practitioner Family; Visit Provider Nurse Practitioner Family
DX: M54.50 Low back pain, unspecified (principal); M53.3 Sacrococcygeal disorders, not elsewhere classified; M79.606 Pain in leg, unspecified
CPT/HCPCS: 72100; 72202

== ENCOUNTER 2021-09-26 14:26 | Emergency (ER) | payer OTHER, SELFPAY ==
[2021-09-26 14:34] VITALS: BP 141/66; BP 156/85; PULSE 50; PULSE 52; RESP 18; TEMP 37.2; O2SAT 100; BMI 20.1
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
[2021-09-26 17:09] LABS: MANUAL DIFF FLAG NO
[2021-09-26 17:16] LABS: Basophils Percent Auto 0.3 % (0-2); Hematocrit 46.1 % (42.0-52.0); Hemoglobin 15.6 g/dl (14.0-18.0); Imm Gran Abs Auto 0.03 X10*3/uL (0.00-0.03); Imm Gran Pct Auto 0.4 % (0.0-0.4); Lymphocytes Absolute Auto 1.1 X10*3/uL (1.2-4.9); Mean Corpuscular HGB Conc 33.8 g/dl (31.0-36.0); Mean Corpuscular Hemoglobin 30.4 pg (27.0-33.0); Mean Corpuscular Volume 89.9 fL (80.0-98.0); Mean Platelet Volume 9.2 fL (9.4-12.4); Monocytes Absolute Auto 0.4 X10*3/uL (0.1-1.2); Monocytes Percent Auto 5.4 % (2-11); Neutrophils Percent Auto 79.9 % (45-73); Platelet Count 351 X10*3/uL (160-400); Red Blood Count 5.13 X10*6/uL (4.60-5.80); Red Cell Distribution Width 13.4 % (11.0-16.0); White Blood Count 7.6 X10*3/uL (4.8-10.8)
[2021-09-26 17:22] LABS: Anion Gap 14 (12-20); Blood Urea Nitrogen 21 mg/dL (9-16); Calcium 9.1 mg/dL (8.4-10.2); Carbon Dioxide 25 mmol/L (22-29); Chloride 107 mmol/L (96-108); Creatinine Clr Calc Pharmacy 87.6; Estimated Glomerular Filt Rate > 60; Glucose Random 124 mg/dL (60-115); Potassium 5.1 mmol/L (3.3-5.1); Sodium 141 mmol/L (135-145)
[2021-09-26 17:54] VITALS: BP 141/71; PULSE 52; RESP 15; O2SAT 97
--- NOTE | 2021-09-26 17:57 | PC.NURSE ---
Pt states that he dose not wish to take anything strong such as valium. Reports that he was told not to take NSAIDs. Get [employer] notified.
[2021-09-26] MEDS: diazePAM 2 MG TABLET PO (18:24)
[2021-09-26] MEDS: Lidocaine 4 % Patch ADH..PATCH 1 PATCH TRANSDERMA (18:25)
[2021-09-26 18:35] LABS: Appearance Urine CLOUDY; Color Urine YELLOW; Glucose Urine UA NEG (NEG); Leukocyte Esterase Urine NEG (NEG); Nitrite Urine NEG (NEG); UACC Culture Trigger NO; Urine Blood 2+ (NEG); Urine Ketones 40 MG/DL (NEG); Urine Protein TRACE MG/DL (NEG-TRACE)
[2021-09-26 18:46] LABS: Amorphous Sediment Urine 3+ /LPF; WBC Urine 0-2 /HPF (0-4)
== END 2021-09-26 18:57 | disposition home or self-care (01) ==
PROVIDERS: Nurse Practitioner Family; Emergency Provider Emergency Medicine; PCP Nurse Practitioner Family
DX: M54.16 Radiculopathy, lumbar region (principal); I10 Essential (primary) hypertension; F17.200 Nicotine dependence, unspecified, uncomplicated
CPT/HCPCS: 36415; 80048; 81001; 85025; 96372; 99284

== ENCOUNTER 2021-12-05 09:00 | Outpatient (RCR) | payer OTHER, SELFPAY ==
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
--- NOTE | 2022-01-11 13:09 | MHC.PT.DC ---
[facility] [place] Office [place] Office [place] Office [address] Anthony Willis [address] [phone] F: [phone] F: [phone] F: [phone] F: [phone] Physical Therapy Discharge Report Diagnosis: LBP Date of Surgery: Date of Evaluation: 10/25/21 Date of Discharge: 01/11/22 Treatments to Date: 6 Cancellations to Date: 2 No Shows to Date: 0 Discharge Status: Independent with HEP Visit Non-compliance Discharge Summary: Pt did not f/u with further visits and is d/c at this time. Electronically signed by: Marta Kraft PT Please sign and return to therapist. Thank you for your referral.
== END 2022-01-11 13:09 | disposition home or self-care (01) ==
LOC: HO.PT 09:00
PROVIDERS: PCP Nurse Practitioner Family; Visit Provider Nurse Practitioner Family
DX: M54.50 Low back pain, unspecified (principal)
CPT/HCPCS: 97110; 97112; 97140; 97162

== ENCOUNTER 2021-12-14 08:03 | Outpatient (REF) | payer OTHER, SELFPAY ==
[2021-12-14 11:24] LABS: MANUAL DIFF FLAG NO
[2021-12-14 11:29] LABS: Basophils Absolute Auto 0.1 X10*3/uL (0.0-0.2); Basophils Percent Auto 1.5 % (0-2); Eosinophils Absolute Auto 0.3 X10*3/uL (0.0-0.4); Eosinophils Percent Auto 4.4 % (0-4); Hematocrit 46.7 % (42.0-52.0); Hemoglobin 15.4 g/dl (14.0-18.0); Imm Gran Abs Auto 0.02 X10*3/uL (0.00-0.03); Imm Gran Pct Auto 0.3 % (0.0-0.4); Lymphocytes Absolute Auto 1.5 X10*3/uL (1.2-4.9); Lymphocytes Percent Auto 20.3 % (20-40); Mean Corpuscular Hemoglobin 30.4 pg (27.0-33.0); Mean Corpuscular Volume 92.3 fL (80.0-98.0); Mean Platelet Volume 9.6 fL (9.4-12.4); Monocytes Absolute Auto 0.6 X10*3/uL (0.1-1.2); Monocytes Percent Auto 8.4 % (2-11); Neutrophils Absolute Auto 4.9 x10*3/uL (2.0-8.3); Neutrophils Percent Auto 65.1 % (45-73); Platelet Count 370 X10*3/uL (160-400); Red Blood Count 5.06 X10*6/uL (4.60-5.80); Red Cell Distribution Width 13.9 % (11.0-16.0); White Blood Count 7.5 X10*3/uL (4.8-10.8)
[2021-12-14 11:34] LABS: Appearance Urine Clear; Color Urine Yellow; Glucose Urine UA Negative (Negative); Leukocyte Esterase Urine Negative (Negative); Nitrite Urine Negative (Negative); Specific Gravity - Urine 1.015 (1.005-1.025); UMIC TRIGGER UACC YES; Urine Blood Trace (Negative); Urine Ketones Negative (Negative); Urine Protein Negative (Neg-Trace)
[2021-12-14 11:38] LABS: Bacteria Urine None Seen (None Seen); Hyaline Casts Urine 0-2 /LPF (0-2); Squamous Epithelial Cell Urine 0-2 /HPF (0-2); WBC Urine 0-5 /HPF (0-5)
[2021-12-14 11:45] LABS: Alanine Aminotransferase 16 U/L (0-40); Albumin Level 4.5 g/dL (3.5-5.0); Alkaline Phosphatase 53 U/L (39-117); Anion Gap 15 (12-20); Aspartate Amino Transferase 29 U/L (5-37); Blood Urea Nitrogen 15 mg/dL (9-16); Calcium 9.5 mg/dL (8.4-10.2); Carbon Dioxide 28 mmol/L (22-29); Chloride 104 mmol/L (96-108); Cholesterol 228 mg/dL; Estimated Glomerular Filt Rate > 60; Glucose Fasting 102 mg/dL (60-99); HDL Cholesterol 96 mg/dL; Iron 75 mcg/dL (45-160); LDL Cholesterol Calculated 125 mg/dl; Percent Iron Saturation 17 % (15-50); Potassium 5.3 mmol/L (3.3-5.1); Sodium 142 mmol/L (135-145); Total Iron Binding Capacity 431 mcg/dL (228-428); Triglycerides 35 mg/dL; Unsaturated Iron Binding 356 ug/dL
[2021-12-14 12:07] LABS: Ferritin 13 ng/mL (20-250); TSH reflex Free T4 1.39 uIU/mL (0.32-4.0)
[2021-12-14 12:20] LABS: Folate 14.4 ng/mL (> or = 4.0); Vitamin B12 422 pg/mL (200-900)
[2021-12-17 18:57] LABS: A. Phagocytphilium DNA,RT-PCR NOT DETECTED (NOT DETECTED); Babesia Microti DNA, RT-PCR NOT DETECTED (NOT DETECTED); Borrelia Miyamotoi,DNA RT-PCR NOT DETECTED (NOT DETECTED); E.Chaffeensis DNA RT-PCR NOT DETECTED (NOT DETECTED); Lyme(Borrelia ssp)DNA RT-PCR NOT DETECTED (NOT DETECTED)
[2021-12-18 14:12] LABS: Source-Tick borne disease BLOOD
== END 2021-12-14 08:04 | disposition home or self-care (01) ==
LOC: HO.HMGCLDS 08:03
PROVIDERS: PCP Nurse Practitioner Family; Visit Provider Nurse Practitioner Family
DX: R53.83 Other fatigue (principal)
CPT/HCPCS: 36415; 80053; 80061; 81001; 82607; 82728; 82746; 83540; 84443; 85025; 87798; 87801

== ENCOUNTER 2021-12-16 15:04 | Emergency (ER) | payer OTHER, SELFPAY ==
--- NOTE | ~2021-12-16 | XR_ITS ---
EXAMINATION: XR CHEST CLINICAL INFORMATION: Injury, laceration COMPARISON: Previous dated 02/12/2020 TECHNIQUE: Frontal view of the chest was obtained. FINDINGS: No acute finding. There is no infiltrate. No failure. No effusion. No evidence for radiopaque foreign body. No pneumothorax. The cardiac silhouette is comparable. Tortuous versus ectatic arch and descending aorta is once again seen. XR/XR chest 1V IMPRESSION: No acute finding.
[2021-12-16 15:15] VITALS: BP 112/74; BP 90/50; PULSE 58; PULSE 60; RESP 14; TEMP 36.7; O2SAT 99; BMI 22.1
--- NOTE | 2021-12-16 15:52 | ECG_ITS ---
Test Reason : CHEST INJURY Blood Pressure : / mmHG Vent. Rate : 057 BPM Atrial Rate : 057 BPM P-R Int : 182 ms QRS Dur : 132 ms QT Int : 412 ms P-R-T Axes : 045 -69 049 degrees QTc Int : 401 ms Sinus bradycardia with sinus arrhythmia Left axis deviation Right bundle branch block Abnormal ECG When compared with ECG of 12-FEB-2020 17:46, No significant change was found Referred By: Ethel Sol Electronically Signed By:VIRGINIE URIARTE
[2021-12-16] MEDS: Diphth,Pertus(ACell),Tet Adult 0.5 ML SYRINGE IM (16:21)
[2021-12-16 16:27] VITALS: BP 114/75; PULSE 75; RESP 14; O2SAT 98
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
[2021-12-16] MEDS: Lidocaine HCl 1 % MPF 5 ML VIAL 10 ML SUBCUT (17:02)
== END 2021-12-16 17:44 | disposition home or self-care (01) ==
PROVIDERS: Emergency Provider Internal Medicine; PCP Nurse Practitioner Family
DX: S21.119A Laceration without foreign body of unspecified front wall of thorax without penetration into thoracic cavity, initial encounter (principal); S20.313A Abrasion of bilateral front wall of thorax, initial encounter; R07.89 Other chest pain; Y33.XXXA Other specified events, undetermined intent, initial encounter; Y93.9 Activity, unspecified; Y92.9 Unspecified place or not applicable; Y99.9 Unspecified external cause status; Z79.899 Other long term (current) drug therapy; F17.210 Nicotine dependence, cigarettes, uncomplicated; Z71.6 Tobacco abuse counseling
CPT/HCPCS: 12002; 71045; 90471; 90715; 93005; 99284

== ENCOUNTER 2021-12-26 08:29 | Outpatient (REF) | payer OTHER, SELFPAY ==
[2021-12-26 11:44] LABS: Anion Gap 16 (12-20); Carbon Dioxide 28 mmol/L (22-29); Chloride 103 mmol/L (96-108); Potassium 4.7 mmol/L (3.3-5.1); Sodium 142 mmol/L (135-145)
== END 2021-12-26 08:30 | disposition home or self-care (01) ==
LOC: HO.HMGCLDS 08:29
PROVIDERS: PCP Nurse Practitioner Family; Visit Provider Nurse Practitioner Family
DX: E87.5 Hyperkalemia (principal)
CPT/HCPCS: 36415; 80051

== ENCOUNTER 2022-01-04 12:42 | Outpatient (REF) | payer OTHER, SELFPAY ==
--- NOTE | ~2022-01-04 | US_ITS ---
EXAMINATION: US SCROTUM CLINICAL INFORMATION: Testicular pain, unspecified. COMPARISON: None TECHNIQUE: A sonogram of the scrotum was performed assessing marquez-scale appearance and color Doppler flow. Spectral Doppler analysis of the arterial and venous flow were performed in the testes bilaterally. FINDINGS: RIGHT: Right testicle measures 3.0 x 1.2 x 1.8 cm, volume 3.4 mL. There are 2 small calcifications in the right testicle measuring 1 and 2 mm.. Spectral Doppler analysis of the arterial and venous flow is normal in the right testis. Right epididymal head is normal in size. No right hydrocele or varicocele is seen. Right epididymal Doppler flow is normal. LEFT: Left testicle measures 3.4 x 2.1 x 3.0 cm, volume 11.2 mL. No focal testicular parenchymal lesions are visualized. Spectral Doppler analysis of the arterial and venous flow is increased in the left testis. Left epididymal head is normal in size. There are 2 left epididymal head cysts measuring 3 mm and 2 mm. No left hydrocele is seen. There is a left varicocele. Left epididymal Doppler flow is normal. US/US scrotum IMPRESSION: The left testicle is larger than the right. There is increased flow seen in the left testicle questionable for mild orchitis. Small left epididymal head cyst. Left varicocele. 2 small calcifications in the right testicle.
== END 2022-01-04 12:43 | disposition home or self-care (01) ==
LOC: HO.HMGCX 12:42
PROVIDERS: PCP Nurse Practitioner Family; Visit Provider Nurse Practitioner Family
DX: N50.819 Testicular pain, unspecified (principal)
CPT/HCPCS: 76870

== ENCOUNTER 2022-01-07 08:46 | Outpatient (REF) | payer OTHER, SELFPAY ==
--- NOTE | ~2022-01-07 | MR_ITS ---
EXAMINATION: MR LUMBAR SPINE WITHOUT CONTRAST CLINICAL INFORMATION: Low back pain. COMPARISON: None TECHNIQUE: MRI of the lumbar spine was obtained using routine sequences without contrast. FINDINGS: The lumbar vertebral bodies maintain normal height. There is mild retrolisthesis of L2 on L3 and L3 on L4. No significant disc height loss is seen. There is mild edema at the anterior superior corner of L3. The distal spinal cord appears normal. The conus medullaris terminates normally at the T12 level. 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 There is mild ill-defined edema within the left posterior paraspinal musculature centered at the L4-L5 level which may represent recent strain type injury. SPINAL LEVELS: L1-L2: No posterior disc abnormality. No spinal canal or neural foraminal stenosis. L2-L3: Disc bulging with annular fissuring and left foraminal protrusion resulting in mild spinal canal stenosis and bilateral subarticular stenosis. Left neural foraminal stenosis with abutment of the exiting left L2 nerve root segment. L3-L4: Disc bulging with ligament flavum infolding moderate facet arthropathy. Left subarticular stenosis with compression of the traversing left L4 nerve root. Mild to moderate spinal canal stenosis. Right foraminal protrusion compresses the exiting right L3 nerve root. Left foraminal protrusion abuts the exiting left L3 nerve root. L4-L5: Disc bulging with ligament flavum infolding moderate facet arthropathy resulting in mild to moderate spinal canal stenosis with mild compression of the traversing right more than left L5 nerve roots. Left foraminal protrusion contacts the exiting left L4 nerve root. Mild right neural foraminal stenosis. L5-S1: No posterior disc abnormality. Severe facet arthropathy. No spinal canal or neural foraminal stenosis. MR/MR lumbar spine wo con IMPRESSION: At L2-L3 there is mild spinal canal stenosis with subarticular stenosis and abutment of the exiting left L2 nerve root segment. At L3-L4 there is compression of the traversing left L4 nerve root, mild to moderate spinal canal stenosis, and compression of the exiting right L3 nerve root and abutment of the exiting left L3 nerve root. At L4-L5 there is mild to moderate spinal canal stenosis with mild compression of the traversing right more than left L5 nerve roots and abutment of the exiting left L4 nerve root.
== END 2022-01-07 08:47 | disposition home or self-care (01) ==
LOC: HO.MRI 08:46
PROVIDERS: Visit Provider Nurse Practitioner Family
DX: M54.50 Low back pain, unspecified (principal); M79.606 Pain in leg, unspecified
CPT/HCPCS: 72148

== ENCOUNTER → 2022-07-03 15:03 | Outpatient (BNVA) | payer OTHER, SELFPAY | PROVIDERS: PCP Nurse Practitioner Family; Visit Provider Urology | DX: Z13.89 Encounter for screening for other disorder (principal) ==

== ENCOUNTER 2022-07-23 08:56 | Outpatient (REF) | payer OTHER, SELFPAY ==
[2022-07-23 11:28] LABS: MANUAL DIFF FLAG NO
[2022-07-23 11:39] LABS: Appearance Urine Clear; Color Urine Yellow; Glucose Urine UA Negative (Negative); Leukocyte Esterase Urine Negative (Negative); Nitrite Urine Negative (Negative); UMIC TRIGGER UACC YES; Urine Blood Trace (Negative); Urine Ketones Negative (Negative); Urine Protein Negative (Neg-Trace)
[2022-07-23 11:46] LABS: Bacteria Urine None Seen (None Seen); Hyaline Casts Urine 0-2 /LPF (0-2); RBC Urine 0-2 /HPF (0-2); Squamous Epithelial Cell Urine 0-2 /HPF (0-2); WBC Urine 0-5 /HPF (0-5)
[2022-07-23 12:04] LABS: Basophils Absolute Auto 0.1 X10*3/uL (0.0-0.2); Basophils Percent Auto 1.8 % (0-2); Eosinophils Absolute Auto 0.5 X10*3/uL (0.0-0.4); Hematocrit 46.2 % (42.0-52.0); Hemoglobin 15.4 g/dl (14.0-18.0); Imm Gran Abs Auto 0.01 X10*3/uL (0.00-0.03); Imm Gran Pct Auto 0.1 % (0.0-0.4); Lymphocytes Absolute Auto 2.2 X10*3/uL (1.2-4.9); Lymphocytes Percent Auto 29.3 % (20-40); Mean Corpuscular HGB Conc 33.3 g/dl (31.0-36.0); Mean Corpuscular Hemoglobin 30.6 pg (27.0-33.0); Mean Corpuscular Volume 91.7 fL (80.0-98.0); Mean Platelet Volume 9.6 fL (9.4-12.4); Monocytes Absolute Auto 0.7 X10*3/uL (0.1-1.2); Monocytes Percent Auto 9.6 % (2-11); Neutrophils Absolute Auto 3.9 x10*3/uL (2.0-8.3); Neutrophils Percent Auto 52.2 % (45-73); Platelet Count 358 X10*3/uL (160-400); Red Blood Count 5.04 X10*6/uL (4.60-5.80); Red Cell Distribution Width 13.7 % (11.0-16.0); White Blood Count 7.4 X10*3/uL (4.8-10.8)
[2022-07-23 13:33] LABS: Alanine Aminotransferase 13 U/L (0-40); Albumin Level 4.3 g/dL (3.5-5.0); Alkaline Phosphatase 49 U/L (39-117); Anion Gap 11 (12-20); Aspartate Amino Transferase 21 U/L (5-37); Bilirubin Total 1.5 mg/dL (0.0-1.0); Blood Urea Nitrogen 17 mg/dL (9-16); Calcium 9.2 mg/dL (8.4-10.2); Carbon Dioxide 29 mmol/L (22-29); Chloride 106 mmol/L (96-108); Cholesterol 243 mg/dL; Estimated Glomerular Filt Rate > 60; Glucose Fasting 92 mg/dL (60-99); HDL Cholesterol 93 mg/dL; LDL Cholesterol Calculated 141 mg/dl; Potassium 4.9 mmol/L (3.3-5.1); Sodium 141 mmol/L (135-145); Total Protein 6.5 g/dL (6.5-8.0); Triglycerides 47 mg/dL
[2022-07-23 13:56] LABS: Prostate Specific Antigen Scr 0.62 ng/mL (<0.05-4.0); TSH reflex Free T4 1.53 uIU/mL (0.32-4.0)
== END 2022-07-23 08:57 | disposition home or self-care (01) ==
LOC: HO.HMGCLDS 08:56
PROVIDERS: PCP Nurse Practitioner Family; Visit Provider Nurse Practitioner Family
DX: Z12.5 Encounter for screening for malignant neoplasm of prostate (principal); D32.9 Benign neoplasm of meninges, unspecified; E78.5 Hyperlipidemia, unspecified; I10 Essential (primary) hypertension
CPT/HCPCS: 36415; 80053; 80061; 81001; 84153; 84443; 85025

== ENCOUNTER 2022-11-01 11:31 | Outpatient (AMB) | payer OTHER, SELFPAY ==
--- NOTE | 2022-11-01 11:35 | A.OFFVIS_ITS ---
Intake Intake Visit Reasons: microscopic hematuria Intake Note: Patient is present for Follow Up Hematuria Urology Med: None Antibiotic Allergy: None Blood Thinner: none Pharmacy: [facility] Allergies No Known Allergies [No Known Allergies*] Allergy (Verified 11/01/22 11:37) HPI HPI Comments History of Present Illness Details Stan is a pleasant male. He is a patient of Dr. Antonio. He is seen for the following urologic condition - right orchitis - microscopic hematuria Trace hematuria today Did discuss possible orchiectomy if persistent pain Right orchitis Intermittent testicular pain Examination shows right atrophic testicle Discussed likelihood this was secondary to trauma or longstanding Options for management include simple orchiectomy He will call if wishes to proceed [facility] Medical History Asthma Dermatitis Dyslipidemia Enlarged prostate HTN (hypertension) Hx of benign neoplasm of brain Meningioma Positive colorectal cancer screening using Cologuard test Psoriasis Renal calculi Surgical History History of craniotomy History of deviated nasal septum History of esophagogastroduodenoscopy (EGD) History of kidney stones Hx of colonoscopy Family History Father No problems noted. Mother Alzheimer's disease Sister No problems noted. Sister No problems noted. Daughter No problems noted. Daughter No problems noted. Social History Housing: House Alcohol intake: unknown Patient Tobacco Use Status: Current everyday Tobacco user Tobacco use type: Cigarette Cigarettes Per Day: 5 Years Smoked: 6 e-Cigarette/Vaping Use: Never Used Substance Use Type: Marijuana Current occupational status: disabled Cognitive needs: No Hearing needs: No Vision needs: Yes Review of Systems Const Denies chills and Denies fever(s) Card Reports no additional complaints and Denies syncope Resp Denies cough GI Denies abdominal pain and Denies heartburn Reports as per HPI and Denies change in libido Neuro Denies syncope Psych Denies change in libido Endo Denies change in libido Physical Exam Const General: cooperative, healthy appearing, comfortable and no acute distress Orientation/consciousness: patient oriented x3 HEENT Face and sinus: Yes normal facial exam Mouth: moist mucous membranes Neck Neck: Yes normal visual inspection, Yes full ROM and Yes trachea midline Chest Chest palpation & inspection: normal inspection of the chest Resp Effort & Inspection: normal respiratory effort, able to speak in complete sentences and no respiratory distress GI Inspection: Yes normal to inspection Back/Spine/Pelvis Cervical Spine: normal cervical lordosis Thoracic/Lumbar Spine: thoracic and lumbar spine normal to inspection Skin General skin exam: no rashes or lesions noted Neuro General: patient oriented x3, gait normal, tone normal and moves all extremities Extrem General: Yes normal to inspection and Yes capillary refill normal Results AMB Urinalysis, Automated UA Leukoctes 0 Tad/uL Last Edit by Amira Everett [facility] on 11/01/22 11:48 UA Nitrite Negative Last Edit by Amira Everett A on 11/01/22 11:48 UA Urobilinogen 0.2 mg/dL Last Edit by Amira Everett A on 11/01/22 11:4 8 UA Protein 0 mg/dL Last Edit by Amira Everett A on 11/01/22 11:48 UA pH 6.5 Last Edit by Amira Everett A on 11/01/22 11:48 UA Blood 25 Kevin/uL Last Edit by Amira Everett [facility] on 11/01/22 11:48 UA Specific [place] 1.015 Last Edit by Amira Everett A on 11/01/22 11: 48 UA Ketone Negative Last Edit by Amira Everett A on 11/01/22 11:48 UA Bilirubin 0 mg/dL Last Edit by Amira Everett A on 11/01/22 11:48 UA Glucose 0 mg/dL Last Edit by Amira Everett [facility] on 11/01/22 11:48 Results Reviewed Results Reviewed: Laboratory Last Values Urine pH (Auto) 6.5 11/01/22 11:38 Specific Franklin (Auto) 1.015 11/01/22 11:38 Urine Protein (Auto) 0 mg/dL 11/01/22 11:38 Glucose (UA)(Auto) 0 mg/dL 11/01/22 11:38 Urine Ketones (Auto) Negative 11/01/22 11:38 Urine Blood (Auto) 25 Kevin/uL 11/01/22 11:38 Urine Nitrite (Auto) Negative 11/01/22 11:38 Urine Bilirubin (Auto) 0 mg/dL 11/01/22 11:38 Urine Urobilinogen (Auto) 0.2 mg/dL 11/01/22 11:38 Leukocyte Esterase (Auto) 0 Tad/uL 11/01/22 11:38 Assessment & Plan Assessment & Plan (1) Atrophic testicle: Code(s): N50.0 - Atrophy of testis (2) Microhematuria: Code(s): R31.29 - Other microscopic hematuria Plan Twelve month follow-up Orders: Orders AMB Urinalysis Automated 11/01/22 Z13.9 - Encounter for screening, unspecified Patient Instructions: Imaging studies, laboratory and physical exam results were discussed and reviewed in detail. No major barriers to patient understanding were identified. An opportunity to ask questions regarding the treatment plan was provided. All questions were answered. The patient expressed understanding and agreement with the above treatment plan. The patient is aware they should contact our office by phone for worsening of their current condition or the appearance of new urologic symptoms. Compliance is encouraged with any medications and followup testing that is ordered. It is a privilege to participate in the urologic care of your patient. If you have any questions or concerns regarding treatment for the above conditions, or other urologic issues, please do not hesitate to contact me. The office telephone contact is [phone]. This note is constructed using voice recognition software. While every effort has been made to ensure accuracy facility manager errors may have been included. Yours sincerely, Dr Mike Anderson MD, [facility] - Urology Providers of Expert, Compassionate Care for the Genitourinary System Coding Level of Care Code Est Pt Level 3 (38863) Diagnoses Atrophic testicle N50.0 Microhematuria R31.29
== END 2022-11-01 12:06 | disposition home or self-care (01) ==
PROVIDERS: Visit Provider Urology
DX: N50.0 Atrophy of testis (principal); R31.29 Other microscopic hematuria
CPT/HCPCS: 99213

== ENCOUNTER → 2022-11-01 11:31 | Outpatient (BNVA) | payer OTHER, SELFPAY | PROVIDERS: Visit Provider Urology ==

== ENCOUNTER 2023-06-03 10:56 | Outpatient (AMB) | payer OTHER, SELFPAY ==
[2023-06-03 11:02] VITALS: BP 130/74; PULSE 76; O2SAT 98; BMI 23.5
--- NOTE | 2023-06-03 11:02 | MHC.PC.OV ---
Vital Signs 06/03/23 11:02 Height 5 ft 9 in Weight 159 lb BMI 23.5 BP 130/74 Blood Pressure Location Lt brachial Position Sitting Pulse 76 Pulse Source Pulse Oximeter Pulse Oximetry (%) 98 Oxygen Delivery Method Room Air Intake Visit Reasons: medication follow up Intake Note: pt is here for follow up [facility] Pricing Consultant Required: No Allergies No Known Allergies [No Known Allergies*] Allergy (Verified 06/03/23 12:26) Medication List - Last Reconciled 06/03/23 by VIV NoblesP- albuterol sulfate 90 mcg/actuation 1 inh inhalation Q6-8H PRN 30 days amlodipine 2.5 mg PO DAILY 90 days atorvastatin 10 mg PO BEDTIME bupropion HCl 150 mg PO BID clonazepam 1 mg PO DAILY 30 days fluoxetine 10 mg PO QAM fluticasone propionate 220 mcg/actuation (Flovent HFA) 2 puffs inhalation BID Tobacco use date assessed: 06/03/23 Dental Screening Dental Screen Date: 06/03/23 Did you have a dental visit in the last 12 months?: Yes Did you have a dental problem in the last 6 months where you did not have access to dental care?: No Was dental information given to patient?: Patient has dentist HPI medication follow up HPI Details HTN: Blood pressure is stable, managed with amlodipine 2.5mg. Will order labs. Denies chest pain, shortness of breath, headache, dizziness, and blurred vision. Due for PSA, will order. Denies dribbling with urination, weak stream, and frequent nocturia. Pt has been smoking half a pack a day since age 17. Will refer for low-dose CT. Encouraged smoking cessation. Pt reports increased depression. Since having a meningioma and surgery he has had a speech impediment and short term memory issues. This causes him to be very depressed. Pt is in tears today. Pt is part of a support group for people with brain tumors. He is currently taking buproprion 150mg bid and fluoxetine 10mg. He is interested in seeing a therapist, will have team speak with pt. Denies any SI and HI. [facility] Medical History Hx of benign neoplasm of brain Positive colorectal cancer screening using Cologuard test Meningioma Dermatitis Psoriasis Enlarged prostate Renal calculi Dyslipidemia Asthma HTN (hypertension) Surgical History History of craniotomy History of esophagogastroduodenoscopy (EGD) Hx of colonoscopy History of deviated nasal septum History of kidney stones Family History Father No problems noted. Mother Alzheimer's disease Sister No problems noted. Sister No problems noted. Daughter No problems noted. Daughter No problems noted. Social History Housing: House Alcohol intake: unknown Patient Tobacco Use Status: Current everyday Tobacco user Tobacco use type: Cigarette Cigarettes Per Day: 5 Years Smoked: 6 e-Cigarette/Vaping Use: Never Used Substance Use Type: Marijuana Current occupational status: disabled Cognitive needs: No Hearing needs: No Vision needs: Yes Questionnaire Thrive Questionnaire Date Thrive assessed: 10/11/20 Review of Systems Const Reports as per HPI Physical exam (Primary Care) Vital Signs: Last Vital Signs Pulse 76 06/03/23 11:02 BP 130/74 06/03/23 11:02 Pulse Ox 98 06/03/23 11:02 Oxygen Delivery Method Room Air 06/03/23 11:02 BMI result Body Mass Index 23.5 Tobacco/Smoking Status: Tobacco use Status Tobacco use date assessed 06/03/23 06/03/23 11:09 Patient Tobacco Use Status Current everyday Tobacco 06/03/23 11:04 Tobacco use type Cigarette 06/03/23 11:04 e-Cigarette/Vaping Use Never Used 06/03/23 11:04 Thrive Assessment: Date of Thrive Assessment Date Thrive assessed 10/11/20 06/03/23 11:04 Const General: cooperative Orientation/consciousness: patient oriented x3 Resp Effort & Inspection: normal respiratory effort Auscultation: clear to auscultation bilaterally Cardio Rate: regular rate Rhythm: regular rhythm Heart sounds: S1 normal heart sound present and S2 normal heart sound present Neuro General: patient oriented x3 Psych Other: in tears Appearance: grossly normal Mental Status: mental status grossly normal Speech and movement: Normal speech and movement present Attitude: cooperative Thought process: Normal thought process present Thought content: Normal thought content present Insight: Good insight present (Psych) Judgement: Good judgement present (Psych) Assessment and Plan Assessment & Plan (1) HTN (hypertension): Code(s): I10 - Essential (primary) hypertension Plan: Stable, labs ordered (2) Screening PSA (prostate specific antigen): Code(s): Z12.5 - Encounter for screening for malignant neoplasm of prostate Plan: PSA ordered (3) Smoker: Code(s): F17.200 - Nicotine dependence, unspecified, uncomplicated Plan The patient agreed to the use of a medical billing manager for this encounter. Scribed for LES Hooper by fortunato Maki scribe, on 06/03/2023 at 11:30 EST. Orders: Orders TSH reflex Free T4 Today I10 - Essential (primary) hypertension UA CC w/rflx Micro + Cult Today I10 - Essential (primary) hypertension Lipid Panel Today I10 - Essential (primary) hypertension Complete Blood Count Auto Diff Today I10 - Essential (primary) hypertension Comprehensive Corea. Panel Fast Today I10 - Essential (primary) hypertension Prostate Specific Antigen Scr Today Z12.5 - Encounter for screening for malignant neoplasm of prostate Referrals Thoracic Surgery Referral F17.200 - Nicotine dependence, unspecified, uncomplicated Medications: Refilled clonazepam 1 mg PO DAILY 30 tabs 1RF 30 days Coding Level of Care Code Est Pt Level 3 (07971) Diagnoses HTN (hypertension) I10 Screening PSA (prostate specific antigen) Z12.5 Smoker F17.200
== END 2023-06-03 17:12 | disposition home or self-care (01) ==
PROVIDERS: PCP Nurse Practitioner Family; Visit Provider Nurse Practitioner Family
DX: I10 Essential (primary) hypertension (principal); Z12.5 Encounter for screening for malignant neoplasm of prostate; F17.200 Nicotine dependence, unspecified, uncomplicated
CPT/HCPCS: 99213

== ENCOUNTER 2023-07-25 08:54 | Outpatient (AMB) | payer OTHER, SELFPAY ==
--- NOTE | 2023-07-25 07:39 | A.OFFVIS_ITS ---
Intake Visit Reasons: Current Smoker Allergies No Known Allergies [No Known Allergies*] Allergy (Verified 06/03/23 12:26) HPI HPI Current Smoker: Details: Initial visit for this 58yo smoker with a 21PYH. Patient has been smoking since age 15 for 43 years at 1/2ppd. Currently down to 1/4ppd. . Reports marijuana use 2-3 times a week. Denies second hand smoke exposure. 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 Denies known family history of lung cancer. Denies personal history of cancers. He did have meningioma removed 2019. . Denies chest CT in last year. Prior chest CT done 12/2014 noted no suspicious nodules. . Denies recent travel outside the [place]. Denies recent respiratory illness or recent hospitalization for respiratory issues. Reports testing positive for COVID in 2023. Admits receiving COVID Vaccine. x 3. . Denies fever, chills, new/worsening cough, hemoptysis, hoarseness or dysphagia. Denies significant chest pain, significant dyspnea or unintentional weight loss. Patient Lung Cancer Screening Questionnaire reviewed with patient by provider. . Shared Decision Making Completed. Patient meets criteria. Discussed in detail with patient, the risk vs benefit of LDCT screening. Patient consents to proceed with scan. Discussed smoking cessation. [facility] Medical History (Updated 07/25/23 @ 09:29 by Gretchen Doll PA-C) History of meningioma of the brain HTN (hypertension) Dyslipidemia Asthma Nicotine dependence, cigarettes, uncomplicated Enlarged prostate Positive colorectal cancer screening using Cologuard test Psoriasis Renal calculi Surgical History (Updated 07/21/23 @ 14:19 by Gretchen Doll PA-C) History of craniotomy History of lithotripsy History of nasal septoplasty History of colonoscopy History of esophagogastroduodenoscopy (EGD) Family History Father No problems noted. Mother Alzheimer's disease Sister No problems noted. Sister No problems noted. Daughter No problems noted. Daughter No problems noted. Social History (Updated 07/25/23 @ 09:29 by Gretchen Doll PA-C) Housing: House Alcohol intake: unknown Patient Tobacco Use Status: Current everyday Tobacco user Tobacco use type: Cigarette Cigarettes Per Day: 5 Years Smoked: (onset 15yo, 1/2 ppd x 43yrs, now 1/4ppd - 21pyh) e-Cigarette/Vaping Use: Never Used Substance Use Type: Marijuana Current occupational status: disabled Cognitive needs: No Hearing needs: No Vision needs: Yes Assessment & Plan Assessment & Plan (1) Nicotine dependence, cigarettes, uncomplicated: Comment: (current smoker - onset 15yo, 1/2 ppd x 43yrs, now 1/4ppd - 21pyh) Code(s): F17.210 - Nicotine dependence, cigarettes, uncomplicated Category: Medical Plan: - SDM visit completed today in office. - Patient meets criteria for LDCT for lung cancer screening purposes and is asymptomatic. - Smoking cessation counseling offered. Patients can always call [phone]. - Will arrange for a LDCT scan of the chest for screening purposes at [facility]. - Risks, benefits, and alternatives were discussed in detail and the patient agrees to proceed. - Risks discussed include but are not limited to: radiation exposure, anxiety during testing and while awaiting results, false negatives, false positives and possibility of additional intervention such as further imaging or surgical procedures for benign disease. - Benefits are obviously detection of lung cancer at an early stage which can lead to improved outcomes. - Discussed the importance of screening program compliance with adherence to yearly LDCT scan as scheduled - or sooner interval scans for personalized screening regimen. - Discussed follow up plan. Our office will send a letter discussing results and if needed set up phone call and office visit based on CT findings. - Patient educated on results categorization and the management decisions for suspicious findings potentially found on the screening LDCT scan. Any patient with a Lung RADS score of 3 or 4 will be reviewed by a multidisciplinary team at [facility] to form a plan of action in regards to scan findings. - If further work up is warranted for a suspicious lung finding this will be followed by the Lung Cancer Screening program in conjunction with the Thoracic Surgery Department at [facility]. - A copy of the office note and LDCT will be sent to the patient's PCP - as well as documentation on any associated further plans of care. - Incidental findings on LDCT are the PCP's responsibility. These findings are indicated with an S finding on the LDCT Assessment. A note discussing the findings will be sent to the PCP who is then responsible for further management. - All questions answered.? Coding Level of Care Code Lung Cancer Screening G0296 Diagnoses Nicotine dependence, cigarettes, uncomplicated F17.210
== END 2023-07-25 09:30 | disposition home or self-care (01) ==
PROVIDERS: PCP Nurse Practitioner Family; Referring Provider Nurse Practitioner Family; Visit Provider Physician Assistant Medical
DX: F17.210 Nicotine dependence, cigarettes, uncomplicated (principal)
CPT/HCPCS: G0296

== ENCOUNTER 2023-07-25 09:29 | Outpatient (REF) | payer OTHER, SELFPAY ==
--- NOTE | ~2023-07-25 | CT_ITS ---
EXAMINATION: CT CHEST SCREENING CLINICAL INFORMATION: Nicotine dependence, cigarettes, uncomplicated. The patient is a current smoker with a 40 pack-year history of smoking. COMPARISON: X-ray chest 12/16/2021. CT chest 01/25/2015. TECHNIQUE: Multidetector volumetric CT imaging of the chest is performed on a Siemens SOMATOM Definition scanner without contrast using low dose technique. Additional 2D coronal and sagittal reformatted images and axial 3D maximum intensity projection (MIP) images are generated on the CT workstation. This CT examination was performed using dose optimization techniques as appropriate, variously including the following: *Automated exposure control *Adjustment of mA and/or kV according to patient size (this includes techniques or standardized protocols for targeted exams where dose is matched to indication/reason for exam; i.e. extremities or head) *Use of iterative reconstruction technique DLP: 51 mGy-cm FINDINGS: LUNGS: The lungs are clear with no evidence of inflammation or concerning nodules. Mild peribronchial thickening is seen. MEDIASTINUM: The mediastinum is normal. CORONARY ARTERY CALCIFICATION: Moderate. PLEURA: There is no pleural effusion. No pleural mass or thickening. AXILLA: No lymphadenopathy. UPPER ABDOMEN: Unremarkable. OSSEOUS STRUCTURES: Unremarkable. CT/CT lung screening IMPRESSION: Unremarkable examination. ASSESSMENT: Lung-RADS category 1: Negative RECOMMENDATION: Routine annual low-dose CT screening in 12 months.
== END 2023-07-25 09:30 | disposition home or self-care (01) ==
LOC: HO.CT 09:29
PROVIDERS: Visit Provider Physician Assistant Medical
DX: Z12.2 Encounter for screening for malignant neoplasm of respiratory organs (principal); F17.210 Nicotine dependence, cigarettes, uncomplicated
CPT/HCPCS: 71271; G0296

== ENCOUNTER 2023-11-06 08:41 | Outpatient (AMB) | payer OTHER, SELFPAY ==
--- NOTE | 2023-11-06 08:42 | MHC.PC.OV ---
Vital Signs 11/06/23 08:44 Height 5 ft 9 in Weight 155 lb BMI 22.9 BP 128/80 Blood Pressure Location Rt brachial Position Sitting Pulse 50 Pulse Source Pulse Oximeter Pulse Oximetry (%) 98 Intake Visit Reasons: 5M F/U In House Intake Note: pt is here for 5 month follow up Leg Breaker Required: No Allergies No Known Allergies [No Known Allergies*] Allergy (Verified 11/06/23 08:46) Medication List - Last Reconciled 11/06/23 by LES Nobles albuterol sulfate 90 mcg/actuation 1 inh inhalation Q6-8H PRN 30 days amlodipine 2.5 mg PO DAILY 90 days atorvastatin 10 mg PO BEDTIME bupropion HCl SR 150 mg PO BID clonazepam 1 mg PO DAILY 30 days fluoxetine 10 mg PO QAM fluticasone propionate 220 mcg/actuation (Flovent HFA) 2 puffs inhalation BID Tobacco use date assessed: 11/06/23 Dental Screening Dental Screen Date: 06/03/23 HPI 5M F/U In House HPI Details HTN: Blood pressure is stable, managed with amlodipine 2.5mg. Denies chest pain, shortness of breath, headache, dizziness, and blurred vision. Labs were already ordered, encouraged pt to have these drawn. [facility] Medical History History of meningioma of the brain HTN (hypertension) Dyslipidemia Asthma Nicotine dependence, cigarettes, uncomplicated Enlarged prostate Positive colorectal cancer screening using Cologuard test Psoriasis Renal calculi Surgical History History of craniotomy History of lithotripsy History of nasal septoplasty History of colonoscopy History of esophagogastroduodenoscopy (EGD) Family History Father No problems noted. Mother Alzheimer's disease Sister No problems noted. Sister No problems noted. Daughter No problems noted. Daughter No problems noted. Social History Housing: House Alcohol intake: unknown Patient Tobacco Use Status: Current everyday Tobacco user Tobacco use type: Cigarette Cigarettes Per Day: 5 Years Smoked: (onset 15yo, 1/2 ppd x 43yrs, now 1/4ppd - 21pyh) e-Cigarette/Vaping Use: Never Used Substance Use Type: Marijuana service: No Current occupational status: disabled Cognitive needs: No Hearing needs: No Vision needs: Yes Questionnaire PHQ-9 Over the last 2 weeks, how often have you been bothered by any of the following problems? 1. Little interest or pleasure in doing things: not at all 2. Feeling down, depressed, or hopeless: not at all 3. Trouble falling or staying asleep, or sleeping too much: not at all 4. Feeling tired or having little energy: not at all 5. Poor appetite or overeating: not at all 6. Feeling bad about yourself - or that you are a failure or have let yourself or your family down: not at all 7. Trouble concentrating on things, such as reading the newspaper or watching television: several days 8. Moving or speaking so slowly that other people could have noticed. Or the opposite - being so fidgety or restless that you have been moving around a lot more than usual: several days 9. Thoughts that you would be better off or of hurting yourself in some way: not at all Total score: 2 Depression Screening Interpretation: Negative Depression Screening Done: Yes 15932 - PHQ-9 Billing: Yes Source: Developed by Drs. Diallo Landrum, Essie Paz, Roberto Taylor and colleagues, with an educational christian from [employer]. Thrive Questionnaire Date Thrive assessed: 11/06/23 I am a: Patient What is your living situation today?: I have a steady place to live Within the past 12 months, did the food you bought not last and you didn't have the money to get more?: Never true Within the past 12 months, did you worry whether your food would run out before you got money to buy more?: Never true Do you have trouble paying for medicines?: No Do you have trouble getting transportation to medical appointments?: No Do you have trouble paying your heating and electricity bill?: No Do you have trouble taking care of your child, family member or friend?: No Do you have trouble with day-to-day activities such as bathing, preparing meals, shopping, managing finances, etc.?: No Are you currently unemployed and looking for a job?: I choose not to answer this question Are you interested in more education?: I choose not to answer this question Please select the resources that you would like help with: Housing/Skilled Nursing Currently or been in a relationship where the following occur: No concerns reported THRIVE Score: 0 AUDIT C Alcohol Use Questionnaire (AUDIT-C) 1. How often do you have a drink containing alcohol?: 2-3 times a week 2. How many drinks containing alcohol do you have on a typical day when you are drinking?: 1 or 2 3. How often do you have six or more drinks on one occasion?: Never Total Score: 3 Score Reviewed/Action Taken: Yes OTONIEL-7 AMB Questionnaire OTONIEL-7 Date OTONIEL - 7 assessed: 11/06/23 Feeling nervous, anxious, or on edge: 2 = More than half the days Not being able to stop or control worryin = Several days Worrying too much about different things: 1 = Several days Trouble relaxin = More than half the days Being so restless that it is hard to sit still: 2 = More than half the days Becoming easily annoyed or irritable: 0 = Not at all Feeling afraid as if something awful might happen: 1 = Several days Total OTONIEL-7 score (0-4 normal; 5-9 mild; 10-14 moderate; 15-21 severe): 9 Source: Developed by Drs. Diallo Landrum, Essie Paz, Roberto Taylor and colleagues, with an educational christian from [employer]. OTONIEL-7 Assessment Billing OTONIEL-7 Assessment Tool: OTONIEL-7 Assessment 37481 Review of Systems Const Reports as per HPI Physical exam (Primary Care) Vital Signs: Last Vital Signs Pulse 50 11/06/23 08:44 BP 128/80 11/06/23 08:44 Pulse Ox 98 11/06/23 08:44 BMI result Body Mass Index 22.9 Tobacco/Smoking Status: Tobacco use Status Tobacco use date assessed 11/06/23 11/06/23 08:46 Patient Tobacco Use Status Current everyday Tobacco 11/06/23 08:45 Tobacco use type Cigarette 11/06/23 08:45 e-Cigarette/Vaping Use Never Used 11/06/23 08:45 PHQ-9: PHQ-9 Score PHQ-9: Total score 2 11/06/23 11:11 Depression Screening Interpretation: Negative Thrive Assessment: Date of Thrive Assessment Date Thrive assessed 11/06/23 11/06/23 08:46 Currently or been in a relationship where the following occur: No concerns reported Const General: cooperative Orientation/consciousness: patient oriented x3 Resp Effort & Inspection: normal respiratory effort Auscultation: clear to auscultation bilaterally and diminished lung sounds Cardio Rate: regular rate Rhythm: regular rhythm Heart sounds: S1 normal heart sound present and S2 normal heart sound present Neuro General: patient oriented x3 Psych Appearance: grossly normal Mental Status: mental status grossly normal Speech and movement: Normal speech and movement present Affect: normal affect Attitude: cooperative Thought process: Normal thought process present Thought content: Normal thought content present Insight: Good insight present (Psych) Judgement: Good judgement present (Psych) Assessment and Plan Assessment & Plan (1) HTN (hypertension): Code(s): I10 - Essential (primary) hypertension Plan: stable currently, encouraged to get labs performed Plan The patient agreed to the use of a medical scientist for this encounter. Scribed for LES Hooper by Magda Garcia medical scientist, on 11/06/2023 at 09:10 EST. Medications: Refilled bupropion HCl SR 150 mg PO BID 180 caps 3RF Coding Level of Care Code Est Pt Level 3 (57676) Diagnoses HTN (hypertension) I10 Additional Codes OTONIEL-7 Assessment Billing - OTONIEL-7 Assessment Tool: OTONIEL-7 Assessment 56203 ([id number])
[2023-11-06 08:44] VITALS: BP 128/80; PULSE 50; O2SAT 98; BMI 22.9
== END 2023-11-06 09:25 | disposition home or self-care (01) ==
PROVIDERS: PCP Nurse Practitioner Family; Visit Provider Nurse Practitioner Family
DX: I10 Essential (primary) hypertension (principal)
CPT/HCPCS: 99213

== ENCOUNTER 2023-11-17 07:53 | Outpatient (REF) | payer OTHER, SELFPAY ==
[2023-11-17 10:32] LABS: MANUAL DIFF FLAG NO
[2023-11-17 10:42] LABS: Basophils Absolute Auto 0.1 X10*3/uL (0.0-0.2); Basophils Percent Auto 1.7 % (0-2); Eosinophils Absolute Auto 0.4 X10*3/uL (0.0-0.4); Eosinophils Percent Auto 6.8 % (0-4); Hematocrit 45.6 % (42.0-52.0); Hemoglobin 15.2 g/dl (14.0-18.0); Lymphocytes Absolute Auto 1.5 X10*3/uL (1.2-4.9); Lymphocytes Percent Auto 27.6 % (20-40); Mean Corpuscular HGB Conc 33.3 g/dl (31.0-36.0); Mean Corpuscular Hemoglobin 31.3 pg (27.0-33.0); Mean Corpuscular Volume 93.8 fL (80.0-98.0); Mean Platelet Volume 9.5 fL (9.4-12.4); Monocytes Absolute Auto 0.5 X10*3/uL (0.1-1.2); Monocytes Percent Auto 8.7 % (2-11); Neutrophils Absolute Auto 2.9 x10*3/uL (2.0-8.3); Neutrophils Percent Auto 55.2 % (45-73); Platelet Count 311 X10*3/uL (160-400); Red Blood Count 4.86 X10*6/uL (4.60-5.80); Red Cell Distribution Width 14.3 % (11.0-16.0); White Blood Count 5.3 X10*3/uL (4.8-10.8)
[2023-11-17 10:59] LABS: Appearance Urine Clear; Color Urine Yellow; Glucose Urine UA Negative (Negative); Leukocyte Esterase Urine Negative (Negative); Nitrite Urine Negative (Negative); PH 7.5 (5.0-9.0); UMIC TRIGGER UACC YES; Urine Blood Trace (Negative); Urine Ketones Negative (Negative); Urine Protein Negative (Neg-Trace)
[2023-11-17 11:09] LABS: Bacteria Urine None Seen (None Seen); Hyaline Casts Urine 0-2 /LPF (0-2); Squamous Epithelial Cell Urine 0-2 /HPF (0-2); WBC Urine 0-5 /HPF (0-5)
[2023-11-17 11:10] LABS: Alanine Aminotransferase 14 U/L (0-40); Albumin Level 4.1 g/dL (3.5-5.0); Alkaline Phosphatase 52 U/L (39-117); Anion Gap 10 (12-20); Aspartate Amino Transferase 21 U/L (5-37); Bilirubin Total 0.8 mg/dL (0.0-1.0); Blood Urea Nitrogen 21 mg/dL (9-16); Calcium 8.9 mg/dL (8.4-10.2); Carbon Dioxide 30 mmol/L (22-29); Chloride 105 mmol/L (96-108); Cholesterol 210 mg/dL (<200); Estimated Glomerular Filt Rate > 60; Glucose Fasting 108 mg/dL (60-99); HDL Cholesterol 96 mg/dL (>40); LDL Cholesterol Calculated 108 mg/dL (<100); Potassium 3.9 mmol/L (3.3-5.1); Sodium 141 mmol/L (135-145); Total Protein 6.5 g/dL (6.5-8.0); Triglycerides 32 mg/dL (<150)
[2023-11-17 11:24] LABS: Prostate Specific Antigen Scr 0.64 ng/mL (<0.05-4.0)
[2023-11-17 11:30] LABS: TSH reflex Free T4 1.46 uIU/mL (0.32-4.0)
== END 2023-11-17 07:54 | disposition home or self-care (01) ==
LOC: HO.HMGCLDS 07:53
PROVIDERS: PCP Nurse Practitioner Family; Visit Provider Nurse Practitioner Family
DX: I10 Essential (primary) hypertension (principal); Z12.5 Encounter for screening for malignant neoplasm of prostate
CPT/HCPCS: 36415; 80053; 80061; 81001; 84153; 84443; 85025

== ENCOUNTER → 2023-12-16 06:48 | Outpatient (BNVA) | payer OTHER, SELFPAY | PROVIDERS: PCP Nurse Practitioner Family; Visit Provider Nurse Practitioner Family | DX: Z13.89 Encounter for screening for other disorder (principal) ==

== ENCOUNTER 2024-01-14 13:36 | Outpatient (AMB) | payer OTHER, SELFPAY ==
[2024-01-14 13:37] VITALS: BP 122/76; PULSE 75; O2SAT 96; BMI 23.2
--- NOTE | 2024-01-14 13:37 | A.OFFPC_ITS ---
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 Accompanied by: Self / Same As Patient Allergies No Known Allergies [No Known Allergies*] Allergy (Verified 01/14/24 15:50) Medication List - Last Reconciled 01/14/24 by BRADY Nobles-SHRUTI albuterol sulfate 90 mcg/actuation 1 inh inhalation Q6-8H PRN 30 days amlodipine 2.5 mg PO DAILY 90 days atorvastatin 10 mg PO BEDTIME bupropion HCl SR 150 mg PO BID clonazepam 1 mg PO DAILY 30 days fluoxetine 10 mg PO QAM fluticasone propionate 220 mcg/actuation (Flovent HFA) 2 puffs inhalation BID magnesium oxide 400 mg PO DAILY Tobacco use date assessed: 11/06/23 Dental Screening Dental Screen Date: 06/03/23 HPI Discuss Neuro referral/unable to do Telehealth HPI Details Pt c/o muscle cramps/tightness/pains. He reports that these happen randomly and can be in either leg. He also reports numbness and tingling and burning sensation in his anterior thighs, sometimes to his calves. Pt reports that this is mostly when sitting still. 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 He is going for EMG/nerve conduction testing in the near future of his BLE. Will send magnesium oxide. Will order labs. Will consider physiatry and neurology referral. [facility] Medical History History of meningioma of the brain HTN (hypertension) Dyslipidemia Asthma Nicotine dependence, cigarettes, uncomplicated Enlarged prostate Positive colorectal cancer screening using Cologuard test Psoriasis Renal calculi Surgical History History of craniotomy History of lithotripsy History of nasal septoplasty History of colonoscopy History of esophagogastroduodenoscopy (EGD) Family History Father No problems noted. Mother Alzheimer's disease Sister No problems noted. Sister No problems noted. Daughter No problems noted. Daughter No problems noted. Social History Housing: House Alcohol intake: unknown Patient Tobacco Use Status: Current everyday Tobacco user Tobacco use type: Cigarette Cigarettes Per Day: 5 Years Smoked: (onset 15yo, 1/2 ppd x 43yrs, now 1/4ppd - 21pyh) Packs per year/per ci.00 e-Cigarette/Vaping Use: Never Used Substance Use Type: Marijuana service: No Current occupational status: disabled Cognitive needs: No Hearing needs: No Vision needs: Yes Questionnaire Thrive Questionnaire Date Thrive assessed: 11/06/23 I am a: Patient What is your living situation today?: I have a steady place to live Within the past 12 months, did the food you bought not last and you didn't have the money to get more?: Never true Within the past 12 months, did you worry whether your food would run out before you got money to buy more?: Never true Do you have trouble paying for medicines?: No Do you have trouble getting transportation to medical appointments?: No Do you have trouble paying your heating and electricity bill?: No Do you have trouble taking care of your child, family member or friend?: No Do you have trouble with day-to-day activities such as bathing, preparing meals, shopping, managing finances, etc.?: No Are you currently unemployed and looking for a job?: I choose not to answer this question Are you interested in more education?: I choose not to answer this question Please select the resources that you would like help with: None Currently or been in a relationship where the following occur: No concerns reported THRIVE Score: 0 OTONIEL-7 AMB Questionnaire OTONIEL-7 Date OTONIEL - 7 assessed: 11/06/23 Source: Developed by Drs. Diallo Landrum, Essie Paz, Roberto Taylor and colleagues, with an educational christian from [employer] Review of Systems Const Reports as per HPI Physical exam (Primary Care) Vital Signs: Last Vital Signs Pulse 75 01/14/24 13:37 BP 122/76 01/14/24 13:37 Pulse Ox 96 01/14/24 13:37 Oxygen Delivery Method Room Air 01/14/24 13:37 BMI result Body Mass Index 23.2 Tobacco/Smoking Status: Tobacco use Status Tobacco use date assessed 11/06/23 01/14/24 13:41 Patient Tobacco Use Status Current everyday Tobacco 01/14/24 13:41 Tobacco use type Cigarette 01/14/24 13:41 e-Cigarette/Vaping Use Never Used 01/14/24 13:41 Thrive Assessment: Date of Thrive Assessment Date Thrive assessed 11/06/23 01/14/24 13:41 Currently or been in a relationship where the following occur: No concerns reported Const General: cooperative Orientation/consciousness: patient oriented x3 Resp Effort & Inspection: normal respiratory effort Auscultation: clear to auscultation bilaterally Cardio Rate: regular rate Rhythm: regular rhythm Heart sounds: S1 normal heart sound present and S2 normal heart sound present Neuro General: patient oriented x3 Extrem Other: + patellar reflexes, + achilles reflexes, + dorsalis pedis pulses, no pain with palpation of thighs Psych Appearance: grossly normal Mental Status: mental status grossly normal Speech and movement: Normal speech and movement present Affect: normal affect Attitude: cooperative Thought process: Normal thought process present Thought content: Normal thought content present Insight: Good insight present (Psych) Judgement: Good judgement present (Psych) Coding Level of Care Code Est Pt Level 3 (55329) Diagnoses Muscle cramps R25.2 Numbness and tingling of both lower extremities R20.0; R20.2 Assessment & Plan Assessment & Plan (1) Muscle cramps: Code(s): R25.2 - Cramp and spasm Category: Medical Plan: Labs ordered, magnesium sent (2) Numbness and tingling of both lower extremities: Code(s): R20.0 - Anesthesia of skin; R20.2 - Paresthesia of skin Category: Medical Plan: Labs ordered, awaiting EMG/nerve conduction testing Plan The patient agreed to the use of a phlebotomist medical lab assistant for this encounter. Scribed for LES Hooper by Magda Garcia phlebotomist medical lab assistant, on 01/14/2024 at 13:50 EST. Orders: Orders Vitamin B6 Today R25.2 - Cramp and spasm Comprehensive Met. Panel Today R25.2 - Cramp and spasm Complete Blood Count Auto Diff Today R25.2 - Cramp and spasm TSH reflex Free T4 Today R25.2 - Cramp and spasm Tick-borne Disease Molecular Today R20.0 - Anesthesia of skin, R20.2 - Paresthesia of skin, R25.2 - Cramp and spasm Lyme IgG/IgM w/reflex to WB Today R20.0 - Anesthesia of skin, R20.2 - Paresthesia of skin, R25.2 - Cramp and spasm Magnesium Today R25.2 - Cramp and spasm Vitamin B12 and Folate Today R25.2 - Cramp and spasm Medications: New magnesium oxide 400 mg PO DAILY 90 caps 0RF
== END 2024-01-14 16:11 | disposition home or self-care (01) ==
PROVIDERS: PCP Nurse Practitioner Family; Visit Provider Nurse Practitioner Family
DX: R25.2 Cramp and spasm (principal); R20.0 Anesthesia of skin; R20.2 Paresthesia of skin

== ENCOUNTER → 2024-01-14 13:36 | Outpatient (BNVA) | payer OTHER, SELFPAY | PROVIDERS: PCP Nurse Practitioner Family; Visit Provider Nurse Practitioner Family ==

== ENCOUNTER 2024-01-15 09:03 | Outpatient (REF) | payer OTHER, SELFPAY ==
[2024-01-15 10:13] LABS: MANUAL DIFF FLAG NO
[2024-01-15 10:21] LABS: Basophils Absolute Auto 0.1 X10*3/uL (0.0-0.2); Basophils Percent Auto 1.1 % (0-2); Eosinophils Absolute Auto 0.3 X10*3/uL (0.0-0.4); Eosinophils Percent Auto 4.1 % (0-4); Hematocrit 45.4 % (42.0-52.0); Hemoglobin 15.3 g/dl (14.0-18.0); Imm Gran Abs Auto 0.02 X10*3/uL (0.00-0.03); Imm Gran Pct Auto 0.3 % (0.0-0.4); Lymphocytes Absolute Auto 1.9 X10*3/uL (1.2-4.9); Lymphocytes Percent Auto 26.8 % (20-40); Mean Corpuscular HGB Conc 33.7 g/dl (31.0-36.0); Mean Corpuscular Hemoglobin 31.1 pg (27.0-33.0); Mean Corpuscular Volume 92.3 fL (80.0-98.0); Mean Platelet Volume 9.2 fL (9.4-12.4); Monocytes Absolute Auto 0.7 X10*3/uL (0.1-1.2); Monocytes Percent Auto 9.7 % (2-11); Neutrophils Absolute Auto 4.1 x10*3/uL (2.0-8.3); Platelet Count 337 X10*3/uL (160-400); Red Blood Count 4.92 X10*6/uL (4.60-5.80); Red Cell Distribution Width 13.3 % (11.0-16.0)
[2024-01-15 11:06] LABS: Alanine Aminotransferase 16 U/L (0-40); Albumin Level 4.4 g/dL (3.5-5.0); Alkaline Phosphatase 52 U/L (39-117); Anion Gap 10 (12-20); Aspartate Amino Transferase 24 U/L (5-37); Blood Urea Nitrogen 19 mg/dL (9-16); Calcium 9.3 mg/dL (8.4-10.2); Carbon Dioxide 29 mmol/L (22-29); Chloride 105 mmol/L (96-108); Estimated Glomerular Filt Rate > 60; Glucose Random 103 mg/dL (60-115); Magnesium 2.2 mg/dL (1.6-2.6); Potassium 4.2 mmol/L (3.3-5.1); Sodium 140 mmol/L (135-145); Total Protein 6.8 g/dL (6.5-8.0)
[2024-01-15 11:28] LABS: TSH reflex Free T4 1.37 uIU/mL (0.32-4.0)
[2024-01-15 11:39] LABS: Folate 12.1 ng/mL (> or = 4.0); Vitamin B12 480 pg/mL (200-900)
[2024-01-16 18:14] LABS: Lyme Abs Screen <0.90 index
[2024-01-16 21:23] LABS: A. Phagocytphilium DNA,RT-PCR NOT DETECTED (NOT DETECTED); Babesia Microti DNA, RT-PCR NOT DETECTED (NOT DETECTED); Borrelia Miyamotoi,DNA RT-PCR NOT DETECTED (NOT DETECTED); E.Chaffeensis DNA RT-PCR NOT DETECTED (NOT DETECTED); Lyme(Borrelia ssp)DNA RT-PCR NOT DETECTED (NOT DETECTED)
[2024-01-20 12:19] LABS: Vitamin B6 21.6 ng/mL (2.1-21.7)
== END 2024-01-15 09:04 | disposition home or self-care (01) ==
LOC: HO.HMGCLDS 09:03
PROVIDERS: PCP Nurse Practitioner Family; Visit Provider Nurse Practitioner Family
DX: R25.2 Cramp and spasm (principal); R20.0 Anesthesia of skin; R20.2 Paresthesia of skin
CPT/HCPCS: 36415; 80053; 82607; 82746; 83735; 84207; 84443; 85025; 86617; 86618; 87468; 87469; 87478; 87484; 87798

== ENCOUNTER 2024-01-27 09:18 | Outpatient (REF) | payer OTHER, SELFPAY ==
--- NOTE | 2024-01-27 09:22 | EMG_ITS ---
Bilateral tibial and peroneal motor studies were performed. Bilateral superficial peroneal, sural and median and lateral plantar study was performed. Tibial H-reflex was obtained and paraspinal and some limb muscles were tested with a needle. 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 MD GERTRUDE Manrique/OSCAR / [phone]
== END 2024-01-27 09:19 | disposition home or self-care (01) ==
LOC: HO.NEURO 09:18
PROVIDERS: PCP Nurse Practitioner Family; Visit Provider Nurse Practitioner Family
DX: R20.0 Anesthesia of skin (principal); R20.2 Paresthesia of skin
CPT/HCPCS: 95886; 95913

== ENCOUNTER 2024-02-07 09:03 | Outpatient (REF) | payer OTHER, SELFPAY ==
--- NOTE | ~2024-02-07 | XR_ITS ---
EXAMINATION: XR CHEST CLINICAL INFORMATION: Cough COMPARISON: Chest radiograph from 12/16/2021 TECHNIQUE: 2 views of the chest were obtained. FINDINGS: No focal consolidation. No pneumothorax. Trachea is midline. Cardiac mediastinal silhouette is stable. Aorta demonstrates tortuosity. No large pleural effusion. Osseous structures are intact. Soft tissues are unremarkable. XR/XR chest 2V IMPRESSION: No acute cardiopulmonary process. Electronically signed by: Agatha Moon MD 02/07/2024 10:09 AM RICH
[2024-02-07 12:19] LABS: Influenza A PCR NEGATIVE (Negative); Influenza B PCR NEGATIVE (Negative); Resp Syncy Virus RNA Qual PCR NEGATIVE (Negative); SARS COV2 PCR INHOUSE NEGATIVE (Negative)
== END 2024-02-07 09:04 | disposition home or self-care (01) ==
LOC: HO.HMGCX 09:03
PROVIDERS: PCP Nurse Practitioner Family; Visit Provider Nurse Practitioner Family
DX: R05.9 Cough, unspecified (principal); R68.89 Other general symptoms and signs; F17.210 Nicotine dependence, cigarettes, uncomplicated
CPT/HCPCS: 0241U; 71046

== ENCOUNTER 2024-02-07 09:03 | Outpatient (AMB) | payer OTHER, SELFPAY ==
--- NOTE | 2024-02-07 09:05 | AM.OFFWIN_ITS ---
Intake Vital Signs 02/07/24 09:06 Height 5 ft 9 in Weight 153 lb BMI 22.6 BP 120/82 Blood Pressure Location Lt brachial Position Sitting Pulse 97 Pulse Source Pulse Oximeter Temp 98.6 F Temp Source Oral Pulse Oximetry (%) 100 Oxygen Delivery Method Room Air Intake Visit Reasons: EP- Fever & chest congestion Intake Note: Pt is here today c/o fever & chest congestion x1wk: dtr was dx's with pneumonia last week Patient Tobacco Use Status: Current everyday Tobacco user Allergies No Known Allergies [No Known Allergies*] Allergy (Verified 02/07/24 09:32) Medication List - Last Reconciled 02/07/24 by Dorina Champagne, [facility]- albuterol sulfate 90 mcg/actuation 1 inh inhalation Q6-8H PRN 30 days amlodipine 2.5 mg PO DAILY 90 days atorvastatin 10 mg PO BEDTIME bupropion HCl SR 150 mg PO BID clonazepam 1 mg PO DAILY 30 days fluoxetine 10 mg PO QAM fluticasone propionate 220 mcg/actuation (Flovent HFA) 2 puffs inhalation BID magnesium oxide 400 mg PO DAILY HPI HPI Comments History of Present Illness Details 59-year-old male, current smoker here to day with flu-like symptoms that started on Friday. Reports that he developed a hoarse voice, chest congestion, fever, chills, cough, nasal drainage. Has been exposed to his daughter who has pneumonia. Using Robitussin in his inhaler along with Tylenol to help his symptoms. Exam: Awake alert NAD, mildly ill appearing Sclera and conjunctiva clear bilat Nares clear drainage, turbinates within normal limits, no sinus tenderness with palpation bilat EAC bilat unable to see TM MMM, pharynx WNL RRR LS coarse/congested throughout, coarse cough w/o distress during exam Plan CXR neg Viral Swab neg Message sent to pt via portal Negative for flu, covid, rsv and pneumonia Plan: Prednisone for 5 days. Take with food. New inhaler, Combivent used 4 times per day. Tessalon 3 x per day as needed for cough. No need for antibiotics at this time. If symptoms continue or worsen, recommend follow up. Feel better, Dorina smoking cessation [facility] Medical History History of meningioma of the brain HTN (hypertension) Dyslipidemia Asthma Nicotine dependence, cigarettes, uncomplicated Enlarged prostate Positive colorectal cancer screening using Cologuard test Psoriasis Renal calculi Surgical History History of craniotomy History of lithotripsy History of nasal septoplasty History of colonoscopy History of esophagogastroduodenoscopy (EGD) Family History Father No problems noted. Mother Alzheimer's disease Sister No problems noted. Sister No problems noted. Daughter No problems noted. Daughter No problems noted. Social History Housing: House Alcohol intake: unknown Patient Tobacco Use Status: Current everyday Tobacco user Tobacco use type: Cigarette Cigarettes Per Day: 5 Years Smoked: (onset 15yo, 1/2 ppd x 43yrs, now 1/4ppd - 21pyh) e-Cigarette/Vaping Use: Never Used Substance Use Type: Marijuana service: No Current occupational status: disabled Cognitive needs: No Hearing needs: No Vision needs: Yes Physical Exam Vital Signs: Last Vital Signs Temp 98.6 F 02/07/24 09:06 Pulse 97 02/07/24 09:06 BP 120/82 02/07/24 09:06 Pulse Ox 100 02/07/24 09:06 Oxygen Delivery Method Room Air 02/07/24 09:06 BMI result Body Mass Index 22.6 Results Reviewed Results Reviewed: [facility] [address] [place] [address] XRay Report Signed Patient: Stan Quezada MR#: [id number] : 1965 Acct:[id number] Age/Sex: 59 / M ADM Date: 02/07/24 Loc: HO.HMGCX Attending Dr: Dorina SALDANA Ordering Physician: Dorina Champagne Date of Service: 02/07/24 Procedure(s): XR chest 2V Accession Number(s): [id number] cc: Yosvany Ngo; Dorina Champagne~ EXAMINATION: XR CHEST CLINICAL INFORMATION: Cough COMPARISON: Chest radiograph from 12/16/2021 TECHNIQUE: 2 views of the chest were obtained. FINDINGS: No focal consolidation. No pneumothorax. Trachea is midline. Cardiac mediastinal silhouette is stable. Aorta demonstrates tortuosity. No large pleural effusion. Osseous structures are intact. Soft tissues are unremarkable. XR/XR chest 2V IMPRESSION: No acute cardiopulmonary process. Electronically signed by: Agatha Moon MD 02/07/2024 10:09 AM EST Dictated By: Agatha Moon MD Signed By: <Electronically signed by Agatha Moon MD in OV> 02/07/24 1009 DD/ 5 TD/TT: 02/07/24949 Hog Slaughterer: RUN: 02/07/24 1251 PAGE 1 [facility] [address] [place] [id number] Java Lead Developer: Yosef Mijares M.D. Specimen Inquiry Name: Stan Quezada Age/Sex: 59/M : 1965 Unit#: [id number] Attend Dr: Dorina Champagne Re02/07/24 Status: REG REF Location: [facility] Disch: SPEC : [id number] KEYLA: 02/07/24 STATUS: COMP REQ : [id number] RECD: 02/07/[address]: Dorina Champagne COMP: 02/07/24 ENTERED: 02/07/24 [facility] DR: ORDERED: SARS/FLU/RSV Test Result Flag Reference Influenza A PCR NEGATIVE Negative Influenza B PCR NEGATIVE Negative RSV RNA QualPCR NEGATIVE Negative SARSCOV2 RT-PCR NEGATIVE Negative All test results must be correlated with clinical findings. Negative results do not preclude SARS-CoV2, influenza A virus, influenza B virus and/or RSV infection and should not be used as the sole basis for treatment or other patient management decisions. Negative results must be combined with clinical observations, patient history, and epidemiological information. This test has not been evaluated for monitoring treatment of infection. This test has been authorized by the FDA under an Emergency Use Authorization (EUA) for use by authorized [facility]. Testing performed on the [employer] Battery GeneXpert utilizing real-time RT-PCR. All SARS CoV2 and positive influenza A/B results are reported to [facility]. END OF REPORT Assessment & Plan Assessment & Plan (1) Nicotine dependence, cigarettes, uncomplicated: Comment: (current smoker - onset 15yo, 1/2 ppd x 43yrs, now 1/4ppd - 21pyh) Code(s): F17.210 - Nicotine dependence, cigarettes, uncomplicated Plan: Smoking Cessation How to Quit There are a lot of ways to quit smoking and many resources to help you. Family members, friends, and co-workers may be supportive or encouraging, but to be successful the desire and commitment to quit must be your own. Most people who have been able to successfully quit smoking made at least one unsuccessful attempt in the past. Try not to view past attempts to quit as failures, but rather as learning experiences. Stopping smoking or using smokeless tobacco is difficult, but anyone can do it. Know the symptoms to expect when you stop. Common symptoms include: ? An intense craving for nicotine ? Anxiety, tension, restlessness, frustration, or impatience ? Difficulty concentrating ? Drowsiness or trouble sleeping, as well as bad dreams and nightmares ? Drowsiness and trouble sleeping ? Headaches ? Increased appetite and weight gain ? Irritability or depression How severe your symptoms are depends on how long you smoked and how many cigarettes you smoked each day. Feel ready to quit? ? First and foremost, set a quit date and quit completely on that day. Before your quit date, you may begin reducing your cigarette use. But remember, there is no safe level of cigarette smoking. ? List the reasons why you want to quit. Include both short- and long-term benefits. ? Identify the times you are most likely to smoke. For example, do you tend to smoke when feeling stressed or down? When out at night with friends? While drinking coffee or alcohol? When bored? While driving? Right after a meal or sex? During a work break? While watching TV or playing cards? When you are with other smokers? ? Let all of your friends, family, and co-workers know of your plan to stop smoking and your quit date. Just being aware that they know what you're going through can be helpful, especially when you are grumpy. ? Get rid of all your cigarettes just before the quit date, and clean out anything that smells like smoke, such as clothes and furniture. Make a plan about what you will do instead of smoking at those times when you are most likely to smoke. ? Be as specific as possible. For example, drink tea instead of coffee -- tea may not trigger the desire for a cigarette. Or, take a walk when you feel stressed. ? Remove ashtrays and cigarettes from the car. Place pretzels or hard candies there instead. Pretend-smoke with a straw. ? Find activities that focus your hands and mind but are not taxing or fattening. Computer games, solitaire, knitting, sewing, and crossword puzzles may help. ? If you normally smoke after eating, find other ways to end a meal. Play a tape or CD, eat a piece of fruit, get up and make a phone call, or take a walk (a good distraction that also flores calories). Make other changes in your lifestyle. ? Change your daily schedule and habits. Eat at different times or eat several small meals instead of three large ones. Sit in a different chair or even a different room. ? Satisfy your oral habits by eating celery or other low-calorie snack, chewing sugarless gum, or sucking on a cinnamon stick. ? Go to public places and restaurants where smoking is prohibited or restricted. ? Eat regular meals and don't eat too much candy or sweet things. ? Get more exercise. Take walks or ride a bike. Exercise helps relieve the urge to smoke. Set short-term quitting goals and reward yourself when you meet them. ? Every day, put the money you normally spend on cigarettes in a jar. Then buy something pleasurable after a period of time. ? Try not to think about all the days ahead you will need to avoid smoking. Take it one day at a time. ? Even one puff or one cigarette will make your desire for more cigarettes even stronger. However, it is normal to make mistakes. So even if you have one cigarette, you don't need to take the next one. Other tips to help you quit smoking and stick to it: ? Enroll in a smoking cessation program (hospitals, health departments, community centers, and work sites often offer programs). Learn about self-hypnosis or other techniques. ? Ask your health care provider about prescription medications that are safe and appropriate for you. ? Find out about nicotine patches, gum, and sprays. The [employer]'s web site -- www.cancer.org -- is an excellent resource for smokers who are trying to quit, and the [employer] [place] [employer] can help some smokers kick the habit. Above all, don't get discouraged if you aren't able to quit smoking the first time. Nicotine addiction is a hard habit to break. Try something different next time. Develop new strategies, and try again. Many people take several attempts to finally kick the habit. (2) Cough: Comment: . Code(s): R05.9 - Cough, unspecified Qualifiers: Cough type: acute Qualified Code(s): R05.1 - Acute cough Plan: . (3) Flu-like symptoms: Code(s): R68.89 - Other general symptoms and signs Plan: . Plan . Orders: Orders SARS-CoV2/FLU/RSV Today R09.89 - Other specified symptoms and signs involving the circulatory and respiratory systems XR chest 2V Today F17.210 - Nicotine dependence, cigarettes, uncomplicated, R05.9 - Cough, unspecified, R68.89 - Other general symptoms and signs Medications: New prednisone 50 mg PO DAILY 5 days 5 tabs 0RF benzonatate 100 mg PO TID 10 days PRN 30 caps 1RF cough ipratropium-albuterol 20-100 mcg/actuation (Combivent Respimat) space evenly during waking hours 1 puff inhalation QID 4 grams 0RF Coding Level of Care Code Est Pt Level 4 (61810) Diagnoses Nicotine dependence, cigarettes, uncomplicated F17.210 Acute cough R05.1 Cough type: acute Flu-like symptoms R68.89
[2024-02-07 09:06] VITALS: BP 120/82; PULSE 97; TEMP 37; O2SAT 100; BMI 22.6
== END 2024-02-07 10:57 | disposition home or self-care (01) ==
PROVIDERS: PCP Nurse Practitioner Family; Visit Provider Nurse Practitioner Family
DX: F17.210 Nicotine dependence, cigarettes, uncomplicated (principal); R05.1 Acute cough; R68.89 Other general symptoms and signs

== ENCOUNTER 2024-02-10 05:24 | Emergency (ER) | payer OTHER, SELFPAY ==
[2024-02-10] VITALS (7 sets, daily range): BP systolic 129–142; BP diastolic 77–88; PULSE 82–118; RESP 18–22; TEMP 37.9–38; O2SAT 92–98; BMI 22.1
--- NOTE | 2024-02-10 | ECG_ITS ---
Test Reason : upper resp Blood Pressure : / mmHG Vent. Rate : 093 BPM Atrial Rate : 093 BPM P-R Int : 168 ms QRS Dur : 126 ms QT Int : 362 ms P-R-T Axes : 059 -67 042 degrees QTc Int : 450 ms Normal sinus rhythm Right bundle branch block Left anterior fascicular block Bifascicular block Abnormal ECG When compared with ECG of 16-DEC-2021 16:21, Vent. rate has increased BY 36 BPM QT has lengthened Referred By: Generic ED Physician Electronically Signed By:Delfin Goodrich
--- NOTE | ~2024-02-10 | XR_ITS ---
EXAMINATION: XR CHEST CLINICAL INFORMATION: Dyspnea. Productive cough. COMPARISON: Chest x-ray dated 02/07/2024. CT scan of the chest dated 07/25/2023. TECHNIQUE: AP upright portable view of the chest was obtained. FINDINGS: EKG leads overlie the chest. The cardiac silhouette is within normal limits in size. There is ectasia and tortuosity of the aorta is seen, correlating with the 4.1 cm ascending aortic aneurysm seen on prior chest CT scan from 07/25/2023. Lungs bilaterally are symmetrically hyperinflated. There is some increased reticular opacity seen in the lung bases bilaterally, presumably representing atelectasis/incomplete lung expansion with accentuation of the lung markings . There may be a subtle evolving infiltrate in the left lung base. No dense focal consolidation, effusion or pneumothorax is seen. Bony structures are unremarkable. XR/XR chest 1V IMPRESSION: 1. Obstructive lung disease with bibasilar linear opacities, likely representing atelectasis. Subtle evolving left basilar infiltrate is suspected given the clinical information provided. 2. Ectatic and tortuous aorta, corresponding to the 4.1 cm ascending aortic aneurysm seen on prior CT scan of the chest. Electronically signed by: Amber Kimble MD 02/10/2024 07:35 AM EST
[2024-02-10 06:04] LABS: MANUAL DIFF FLAG NO
[2024-02-10 06:05] LABS: Basophils Percent Auto 0.4 % (0-2); Eosinophils Absolute Auto 0.1 X10*3/uL (0.0-0.4); Eosinophils Percent Auto 1.1 % (0-4); Hematocrit 39.6 % (42.0-52.0); Hemoglobin 13.8 g/dl (14.0-18.0); Imm Gran Abs Auto 0.03 X10*3/uL (0.00-0.03); Imm Gran Pct Auto 0.3 % (0.0-0.4); Lymphocytes Absolute Auto 1.5 X10*3/uL (1.2-4.9); Lymphocytes Percent Auto 14.3 % (20-40); Mean Corpuscular HGB Conc 34.8 g/dl (31.0-36.0); Mean Corpuscular Hemoglobin 31.2 pg (27.0-33.0); Mean Corpuscular Volume 89.6 fL (80.0-98.0); Mean Platelet Volume 8.9 fL (9.4-12.4); Monocytes Absolute Auto 1.4 X10*3/uL (0.1-1.2); Monocytes Percent Auto 13.9 % (2-11); Neutrophils Absolute Auto 7.1 x10*3/uL (2.0-8.3); Platelet Count 304 X10*3/uL (160-400); Red Blood Count 4.42 X10*6/uL (4.60-5.80); Red Cell Distribution Width 13.1 % (11.0-16.0); White Blood Count 10.2 X10*3/uL (4.8-10.8)
[2024-02-10 06:13] LABS: INTERNATIONAL NORM RATIO 1.2 (0.9-1.1); Prothrombin Time 13.5 SEC (10.9-12.4)
[2024-02-10 06:18] LABS: Alanine Aminotransferase 46 U/L (0-40); Alkaline Phosphatase 83 U/L (39-117); Anion Gap 18 (12-20); Aspartate Amino Transferase 55 U/L (5-37); Blood Urea Nitrogen 15 mg/dL (9-16); Calcium 9.6 mg/dL (8.4-10.2); Carbon Dioxide 24 mmol/L (22-29); Chloride 101 mmol/L (96-108); Creatinine Clr Calc Pharmacy 100.7; Estimated Glomerular Filt Rate > 60; Glucose Random 117 mg/dL (60-115); Potassium 3.7 mmol/L (3.3-5.1); Sodium 139 mmol/L (135-145)
[2024-02-10] MEDS: cefTRIAXone sodium 1 GM VIAL IVPUSH (06:22)
[2024-02-10] MEDS: methylPREDNISolone Sod Succ 125 MG/2 ML VIAL 60 MG IVPUSH (06:22)
[2024-02-10] MEDS: Lactated Ringers 1,000 ML 999 ML IV (06:23)
[2024-02-10 06:25] LABS: Troponin-I High Sensitivity 3.3 ng/L (<3.5-35.0)
--- NOTE | 2024-02-10 06:30 | PC.NURSE ---
20 G IV line established n L AC, patient medicated per MAR, call marcus placed within patient's reach, plan of car ongoing.
--- NOTE | 2024-02-10 06:31 | ED.CHESTPAIN ---
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 He has had chills, productive cough, malaise and chest tightness. He went to urgent care on Friday who reported normal CXR and started him on steroids and tessalon. He states he is just not getting better. He states he cannot get better. No travel or procedures, his daughter was the only sick contact MD complaint: chest pain Onset (ago): week(s) (1) Timing of current episode: constant Prior episodes: Yes Onset: during rest (coughing) Pain location: substernal Pain radiation: none Severity: mild Quality: tightness Relieving factors: rest Exacerbating factors: other (coughing, movement) Context: recent illness Associated symptoms: nausea, fever and cough Treatment prior to arrival: other Related Data Previous Rx's ?Medication ?Instructions ?Recorded fluticasone propionate 220 2 puff inhalation BID #36 grams 08/18/22 mcg/actuation HFA aerosol inhaler (Flovent HFA) amlodipine 2.5 mg tablet 2.5 mg PO DAILY 90 days #90 tabs 09/12/23 fluoxetine 10 mg capsule 10 mg PO QAM #90 caps 09/12/23 atorvastatin 10 mg tablet 10 mg PO BEDTIME #90 tabs 09/26/23 albuterol sulfate 90 mcg/actuation 1 inh inhalation Q6-8H PRN 10/28/23 aerosol inhaler bronchospasm 30 days #8.5 grams bupropion HCl 150 mg tablet,12 hr 150 mg PO BID #180 caps 11/06/23 sustained-release clonazepam 1 mg tablet 1 mg PO DAILY 30 days #30 tabs 01/01/24 magnesium oxide 400 mg PO DAILY #90 caps 01/14/24 benzonatate 100 mg capsule 100 mg PO TID PRN cough 10 days 02/07/24 #30 caps ipratropium 20 mcg-albuterol 100 1 puff inhalation QID #4 grams 02/07/24 mcg/actuation mist for inhalation (Combivent Respimat) prednisone 50 mg tablet 50 mg PO DAILY 5 days #5 tabs 02/07/24 Allergies Allergy/AdvReac Type Severity Reaction Status Date / Time No Known Allergies Allergy Verified 02/10/24 05:46 [No Known Allergies*] Review of Systems Review of Systems: Constitutional : pos Fever, pos Chills ENT/Mouth : No Hoarseness, No sore throat, No Rhinorrhea Eyes: No Redness, No Discharge, No Vision Changes Cardiovascular : No Chest Pain, positive SOB, positive Dyspnea on Exertion, No Edema Respiratory : positive Cough, No Sputum, positive Wheezing, Gastrointestinal : No Nausea, No Vomiting, No Diarrhea, No abdominal Pain Genitourinary : No Dysuria, No Hematuria Musculoskeletal : No joint pain, No Myalgias Skin : No rash Neuro : No Weakness, No Numbness, No Headache Psych : No anxiety, depression Heme/Lymph: No Bruising, No Bleeding Endocrine : No Polyuria, No Polydipsia All other systems reviewed and are negative PMFSH Past Medical History Attestation statement: The following information was validated with the patient. Source: old records reviewed Medical History History of meningioma of the brain HTN (hypertension) Dyslipidemia Asthma Nicotine dependence, cigarettes, uncomplicated Enlarged prostate Positive colorectal cancer screening using Cologuard test Psoriasis Renal calculi Surgical History History of craniotomy History of lithotripsy History of nasal septoplasty History of colonoscopy History of esophagogastroduodenoscopy (EGD) Family History Family History (Reviewed 01/14/24 @ 15:52 by Yosvany Ngo, [facility]) Father No problems noted. Mother Alzheimer's disease Sister No problems noted. Sister No problems noted. Daughter No problems noted. Daughter No problems noted. Social History Social History Housing: House Alcohol intake: unknown Patient Tobacco Use Status: Current everyday Tobacco user Tobacco use type: Cigarette Cigarettes Per Day: 5 Years Smoked: (onset 15yo, 1/2 ppd x 43yrs, now 1/4ppd - 21pyh) Smoked in Last 30 Days: Yes e-Cigarette/Vaping Use: Never Used Use of substances other than those prescribed or required for medical reasons: Yes Substance Use Type: Marijuana Substance Use Frequency: Socially Advance Directives: No Advance Directives Information Provided: Yes Do you have a plan to hurt others: No Plan service: No Current occupational status: disabled Cognitive needs: No Hearing needs: No Vision needs: Yes Physical Exam Vital Signs: Vital Signs: Last Vital Signs Temp 100.3 F 02/10/24 05:44 Pulse 118 H 02/10/24 05:44 Resp 22 H 02/10/24 05:44 BP 142/88 H 02/10/24 05:44 Pulse Ox 92 02/10/24 05:44 O2 Del Method Room Air 02/10/24 05:44 BMI result Body Mass Index 22.1 Appearance: Alert. Oriented X3. Mild acute distress. Eyes: Pupils equal, round and reactive to light. ENT: Pharynx normal. Neck: Normal inspection. Neck supple. CVS: tachycardic heart rate and rhythm. Pulses normal. Respiratory: No respiratory distress. Breath sounds diffuse exp wheezes mild and throughout Abdomen: Soft and nontender. Skin: Skin warm and dry. Normal skin color. Normal skin turgor. Extremities: No lower extremity edema. No calf ttp Neuro: Oriented X 3. No motor deficit. No sensory deficit. Course Course Course Narrative: signed out to Dr. Yarbrough Medications Administered Generic Name Dose Route Start Last Admin Trade Name Freq PRN Reason Stop Dose Admin Azithromycin 500 mg/ Sodium 250 mls @ 125 mls/hr 02/10/24 05:57 02/10/24 07:01 Chloride IV 02/10/24 07:56 125 mls/hr ONCE ONE Administration Discontinued Medications Generic Name Dose Route Start Last Admin Trade Name Freq PRN Reason Stop Dose Admin Ceftriaxone Sodium 1 gm 02/10/24 05:57 02/10/24 06:22 Ceftriaxone Sodium 1 Gm Vial IVPUSH 02/10/24 05:58 1 gm ONCE ONE Administration Lactated Ringer's 1,000 mls @ 999 mls/hr 02/10/24 05:58 02/10/24 06:23 Lr IV 02/10/24 06:58 999 mls/hr .Q1H1M ONE Administration Methylprednisolone Sodium Succinate 60 mg 02/10/24 05:57 02/10/24 06:22 Methylprednisolone Sod Succ 125 Mg/2 Ml Vial IVPUSH 02/10/24 05:58 60 mg ONCE ONE Administration Medical Decision Making Medical Decision Making [facility] Narrative: 59 yo male with PMH of asthma has nebulizer at home no prior intubations, HTN, here with c/o URI wheezing difficulty breathing with fevers x 1 week after sick contact - no travel hx at this time basic labs, tylenol, cultures, lactic acid - CXR, empiric ceftriaxone/azithromycin as well as neb and IV steroids. Suspect bronchitis vs pneumonia vs viral syndrome Differential Diagnosis Differential Diagnoses: The differential diagnosis associated with the presentation includes bronchitis vs pneumonia vs viral syndrome Admission/Observation Consideration of admission/observation: Escalation of care including admission/observation considered Lab Data [facility] Lab Attestation statement: I reviewed the patient's lab results. 02/10/24 05:57 02/10/24 05:57 Labs: Lab Results 02/10/24 02/10/24 Range/Units 05:57 06:13 WBC 10.2 (4.8-10.8) X10*3/uL RBC 4.42 L (4.60-5.80) X10*6/uL Hgb 13.8 L (14.0-18.0) g/dl Hct 39.6 L (42.0-52.0) % MCV 89.6 (80.0-98.0) fL MCH 31.2 (27.0-33.0) pg MCHC 34.8 (31.0-36.0) g/dl RDW 13.1 (11.0-16.0) % Plt Count 304 (160-400) X10*3/uL MPV 8.9 L (9.4-12.4) fL Immature Gran % (Auto) 0.3 (0.0-0.4) % Neut % (Auto) 70.0 (45-73) % Lymph % (Auto) 14.3 L (20-40) % [place]he % (Auto) 13.9 H (2-11) % Eos % (Auto) 1.1 (0-4) % Baso % (Auto) 0.4 (0-2) % Lymph # (Auto) 1.5 (1.2-4.9) X10*3/uL [place] # (Auto) 1.4 H (0.1-1.2) X10*3/uL Eos # (Auto) 0.1 (0.0-0.4) X10*3/uL Baso # (Auto) 0.0 (0.0-0.2) X10*3/uL Abs Immat Gran (auto) 0.03 (0.00-0.03) X10*3/uL Absolute Neuts (auto) 7.1 (2.0-8.3) x10*3/uL Absolute Nucleated RBC 0.000 (0.0-0.012) X10*3/uL Nucleated RBC % (auto) 0.0 (0.0-0.2) /100WBC PT 13.5 H (10.9-12.4) SEC INR 1.2 H (0.9-1.1) Sodium 139 (135-145) mmol/L Potassium 3.7 (3.3-5.1) mmol/L Chloride 101 (96-108) mmol/L Carbon Dioxide 24 (22-29) mmol/L Anion Gap 18 (12-20) BUN 15 (9-16) mg/dL Creatinine 0.76 (0.5-1.4) mg/dL Estim Creat Clear Calc 100.7 Estimated GFR > 60 Random Glucose 117 H (60-115) mg/dL Lactic Acid 1.0 (0.5-2.0) mmol/L Calcium 9.6 (8.4-10.2) mg/dL Total Bilirubin 1.0 (0.0-1.0) mg/dL AST 55 H (5-37) U/L ALT 46 H (0-40) U/L Alkaline Phosphatase 83 (39-117) U/L Troponin I High Sens 3.3 (<3.5-35.0) ng/L Total Protein 7.0 (6.5-8.0) g/dL Albumin 4.0 (3.5-5.0) g/dL Influenza Type A (PCR) NEGATIVE (Negative) Influenza Type B (PCR) NEGATIVE (Negative) RSV RNA Qual (PCR) NEGATIVE (Negative) SARS-CoV-2 RNA (RT-PCR) NEGATIVE (Negative) Independent Interpretation I performed an independent interpretation of an: EKG and Plain X-Ray Interpretation: Rate: 93 Rhythm: NSR [place]: left Normal P waves. Normal DUSTIN. RBBB ST T wave : no SARA, inverted t waves V1 qTC: 450 prior studies: prior RBBB The study has been interpreted contemporaneously by me. . Discharge Plan Discharge Clinical Impression: Asthma, Fever Patient Disposition: Still a Patient Prescriptions: No Action fluticasone propionate [Flovent HFA] 220 mcg/actuation HFA aerosol inhaler 2 puff inhalation BID Qty: 36 1RF amlodipine 2.5 mg tablet 2.5 mg PO DAILY 90 Days Qty: 90 1RF fluoxetine 10 mg capsule 10 mg PO QAM Qty: 90 1RF atorvastatin 10 mg tablet 10 mg PO BEDTIME Qty: 90 1RF albuterol sulfate 90 mcg/actuation HFA aerosol inhaler 1 inh inhalation Q6-8H PRN (Reason: bronchospasm) 30 Days Qty: 8.5 3RF clonazepam 1 mg tablet 1 mg PO DAILY 30 Days Qty: 30 2RF bupropion HCl 150 mg tablet sustained-release 12 hr 150 mg PO BID Qty: 180 3RF magnesium oxide 400 mg magnesium capsule 400 mg PO DAILY Qty: 90 0RF prednisone 50 mg tablet 50 mg PO DAILY 5 Days Qty: 5 0RF Combivent Respimat 20-100 mcg/actuation mist 1 puff inhalation QID Qty: 4 0RF Rx Instructions: space evenly during waking hours benzonatate 100 mg capsule 100 mg PO TID PRN (Reason: cough) 10 Days Qty: 30 1RF Print Language: Mauritanian
[2024-02-10 06:41] LABS: Influenza A PCR NEGATIVE (Negative); Influenza B PCR NEGATIVE (Negative); Resp Syncy Virus RNA Qual PCR NEGATIVE (Negative); SARS COV2 PCR INHOUSE NEGATIVE (Negative)
[2024-02-10] MEDS: Azithromycin 500 MG in 0.9 % Sodium Chloride 250 ML 125 MG IV (07:01)
[2024-02-10] MEDS: Albuterol Sulfate 2.5 MG, Albuterol/Iprat 2.5/0.5MG 3 ML 3 ML INHALE (07:22)
[2024-02-10 08:55] LABS: Appearance Urine Clear; Color Urine Yellow; Glucose Urine UA Negative (Negative); Leukocyte Esterase Urine Negative (Negative); Nitrite Urine Negative (Negative); Specific Gravity - Urine 1.015 (1.005-1.025); UMIC TRIGGER UACC YES; Urine Blood Trace (Negative); Urine Ketones 15 mg/dL (Negative); Urine Protein Negative (Neg-Trace)
[2024-02-10 09:00] LABS: Bacteria Urine None Seen (None Seen); Hyaline Casts Urine 0-2 /LPF (0-2); Squamous Epithelial Cell Urine 0-2 /HPF (0-2); WBC Urine 0-5 /HPF (0-5)
== END 2024-02-10 09:53 | disposition home or self-care (01) ==
PROVIDERS: Emergency Medicine; Emergency Provider Emergency Medicine; PCP Nurse Practitioner Family
DX: J45.909 Unspecified asthma, uncomplicated (principal); R50.9 Fever, unspecified; R05.9 Cough, unspecified; I10 Essential (primary) hypertension; R07.9 Chest pain, unspecified; L40.9 Psoriasis, unspecified; Z03.818 Encounter for observation for suspected exposure to other biological agents ruled out; Z79.899 Other long term (current) drug therapy
CPT/HCPCS: 0241U; 36415; 71045; 80053; 81001; 83605; 84484; 85025; 85610; 87040; 93005; 94640; 96361; 96374; 96375; 99285; J0456; J0696; J2919; J7120

== ENCOUNTER → 2024-02-10 05:38 | Outpatient (BNV) | payer OTHER, SELFPAY | PROVIDERS: Emergency Provider Emergency Medicine; PCP Nurse Practitioner Family; Visit Provider Internal Medicine Cardiovascular Disease | DX: R94.31 Abnormal electrocardiogram [ECG] [EKG] (principal) | CPT/HCPCS: 93010 ==

== ENCOUNTER 2024-05-18 09:05 | Outpatient (AMB) | payer OTHER, SELFPAY ==
[2024-05-18 09:17] VITALS: BP 122/80; PULSE 77; TEMP 36.6; O2SAT 98; BMI 23.9
--- NOTE | 2024-05-18 09:17 | A.OFFPC_ITS ---
Vital Signs 05/18/24 09:17 Height 5 ft 9 in Weight 162 lb BMI 23.9 BP 122/80 Blood Pressure Location Rt brachial Position Sitting Pulse 77 Pulse Source Pulse Oximeter Temp 97.9 F Temp Source Oral Pulse Oximetry (%) 98 Intake Visit Reasons: Annual PE Allergies No Known Allergies [No Known Allergies*] Allergy (Verified 05/18/24 10:00) Medication List - Last Reconciled 05/18/24 by Yosvany Ngo, [facility]- albuterol sulfate 90 mcg/actuation 1 inh inhalation Q6-8H PRN 30 days amlodipine 2.5 mg PO DAILY 90 days atorvastatin 10 mg PO BEDTIME bupropion HCl SR 150 mg PO BID clonazepam 1 mg PO DAILY 30 days fluoxetine 10 mg PO QAM fluticasone propionate 220 mcg/actuation (Flovent HFA) 2 puffs inhalation BID ipratropium-albuterol 0.5 mg-3 mg(2.5 mg base)/3 mL 3 mL inhalation Q6H ipratropium-albuterol 20-100 mcg/actuation (Combivent Respimat) 1 puff inhalation QID magnesium oxide 400 mg PO DAILY Tobacco use date assessed: 05/18/24 Dental Screening Dental Screen Date: 05/18/24 Did you have a dental visit in the last 12 months?: Yes Did you have a dental problem in the last 6 months where you did not have access to dental care?: No Was dental information given to patient?: Patient has dentist HPI Annual PE HPI Details History of Present Illness The patient is a 59-year-old male presenting with dyspnea as his primary concern. He reports experiencing shortness of breath, particularly with exertion. His respiratory difficulties are part of a chronic pattern, as he is already part of a low-dose CAT scan program for monitoring purposes. The patient confirms that he is a smoker, though he is actively working on smoking cessation. He utilizes nebulizer treatments, which he finds significantly beneficial. The patient has a history of pneumonia treated recently with antibiotics, and he reports an improvement in his respiratory symptoms since completing the course. However, he continues to notice dyspnea with intense physical activities. Additionally, the patient has ongoing mental health concerns, including depression and anxiety, sees a therapist and notices a benefit.. He denies any suicidal or homicidal ideation. Gastrointestinally, he denies experiencing constipation, diarrhea, or blood in stools. His colon screening remains up to date. Health Maintenance - Low-dose CAT scan program for lung [facility] monitoring. - Colon cancer screening up to date. - Actively working on smoking cessation. - Planning pulmonary function tests (PFT s) for further evaluation of respiratory health. Social History - Actively smoking but working on cessat ion. - Ongoing treatment for depression and a nxiety with acknowledgement of these conditions. Review of Systems - Respiratory: Reports shortness of abiola th with exertion. Denies fever, chills, or chest pain. - Gastrointestinal: Denies blood in stoo l, constipation, or diarrhea. -denies any urinary symptoms, refused DR Shin bonds Physical Exam General: Cooperative, healthy appearing, comfortable, no acute distress and well developed Orientation: Patient oriented x3 Limitations: No limitations Head: Normal to inspection Ears: Hearing grossly normal bilaterally Nose: Normal external nose present Face and sinus: Normal facial exam Eyes: Appearance normal, both eyes and all related structures Neck: Normal visual inspection and Yes full ROM Respiratory: Normal respiratory effort and able to speak in complete sentences. Clear to auscultation bilaterally Cardiovascular: Regular rate and rhythm. Normal S1 and S2 GI: Normal to inspection. Soft to palpation and nontender Skin: No rashes or lesions noted Neuro: Patient oriented x3 Extremities: Normal to inspection Results Plan - Arrange pulmonary function tests PFTs) to assess the degree of obstruction or restriction in lung function. - Continue participation in the low-dose CAT scan screening program. - Encourage ongoing efforts in smoking c essation with available pharmacologic and behavioral supports. - Nebulizer treatment to be continued as it provides symptomatic relief. - Monitor and manage Major Depressive Di sorder and Anxiety Disorder with appropriate therapies and follow-up. Patient was informed and verbally consented to the use of an ambient scribe for clinic note documentation during this visit. Discussion Notes During today's visit, I discussed the importance of comprehensive respiratory evaluation given the patient's history of COPD and recent pneumonia. We agreed on proceeding with pulmonary function tests (PFTs) to quantify respiratory function. The benefits of continued participation in the low-dose CAT scan progr am for lung cancer screening were confirmed, emphasizing how crucial tobacco cessation is in mitigating disease progression. I acknowledged the positive impact of his nebulizer treatments and encouraged their continued use. We also reviewed his mental health conditions and their ongoing management. I advised the patient to maintain close communication regarding any changes in symptoms and to keep up with all recommended health screenings. Patient Instructions - Please continue using your nebulizer a s prescribed and monitor any changes in your symptoms. - Keep working on quitting smoking; cons ider available resources like support groups or medications if necessary. - Attend the scheduled pulmonary functio n tests to evaluate your lung function. - Maintain contact for any updates on yo ur symptoms or concerns about your mental health. - Follow up on any necessary health scre enings and keep track of your colon screenings. [facility] Medical History History of meningioma of the brain HTN (hypertension) Dyslipidemia Asthma Nicotine dependence, cigarettes, uncomplicated Enlarged prostate Positive colorectal cancer screening using Cologuard test Psoriasis Renal calculi Surgical History History of craniotomy History of lithotripsy History of nasal septoplasty History of colonoscopy History of esophagogastroduodenoscopy (EGD) Family History Father No problems noted. Mother Alzheimer's disease Sister No problems noted. Sister No problems noted. Daughter No problems noted. Daughter No problems noted. Social History Housing: House Alcohol intake: unknown Patient Tobacco Use Status: Current everyday Tobacco user Tobacco use type: Cigarette Cigarettes Per Day: 5 Years Smoked: (onset 15yo, 1/2 ppd x 43yrs, now 1/4ppd - 21pyh) e-Cigarette/Vaping Use: Never Used Substance Use Type: Marijuana service: No Current occupational status: disabled Cognitive needs: No Hearing needs: No Vision needs: Yes Questionnaire PHQ-9 Over the last 2 weeks, how often have you been bothered by any of the following problems? 1. Little interest or pleasure in doing things: several days 2. Feeling down, depressed, or hopeless: several days 3. Trouble falling or staying asleep, or sleeping too much: several days 4. Feeling tired or having little energy: several days 5. Poor appetite or overeating: several days 6. Feeling bad about yourself - or that you are a failure or have let yourself or your family down: several days 7. Trouble concentrating on things, such as reading the newspaper or watching television: not at all 8. Moving or speaking so slowly that other people could have noticed. Or the opposite - being so fidgety or restless that you have been moving around a lot more than usual: more than half the days 9. Thoughts that you would be better off or of hurting yourself in some way: not at all Total score: 8 Depression Screening Interpretation: Positive (has a therapist, denies any si or hi) Depression Screening Follow-up: Existing condition and In treatment Depression Screening Done: Yes 56621 - PHQ-9 Billing: Yes Source: Developed by Drs. Diallo Landrum, Essie Paz, Roberto Taylor and colleagues, with an educational christian from [employer]. Thrive Questionnaire Date Thrive assessed: 05/18/24 I am a: Patient What is your living situation today?: I have a steady place to live Within the past 12 months, did the food you bought not last and you didn't have the money to get more?: Never true Within the past 12 months, did you worry whether your food would run out before you got money to buy more?: Never true Do you have trouble paying for medicines?: No Do you have trouble getting transportation to medical appointments?: No Do you have trouble paying your heating and electricity bill?: No Do you have trouble taking care of your child, family member or friend?: No Do you have trouble with day-to-day activities such as bathing, preparing meals, shopping, managing finances, etc.?: No Are you currently unemployed and looking for a job?: I choose not to answer this question Are you interested in more education?: No Please select the resources that you would like help with: None Currently or been in a relationship where the following occur: No concerns reported THRIVE Score: 0 AUDIT C Alcohol Use Questionnaire (AUDIT-C) 1. How often do you have a drink containing alcohol?: 2-3 times a week 2. How many drinks containing alcohol do you have on a typical day when you are drinking?: 3 or 4 3. How often do you have six or more drinks on one occasion?: Less than monthly Total Score: 5 Score Reviewed/Action Taken: Yes OTONIEL-7 AMB Questionnaire OTONIEL-7 Date OTONIEL - 7 assessed: 05/18/24 Feeling nervous, anxious, or on edge: 1 = Several days Not being able to stop or control worryin = Several days Worrying too much about different things: 1 = Several days Trouble relaxin = Several days Being so restless that it is hard to sit still: 0 = Not at all Becoming easily annoyed or irritable: 1 = Several days Feeling afraid as if something awful might happen: 1 = Several days Total OTONIEL-7 score (0-4 normal; 5-9 mild; 10-14 moderate; 15-21 severe): 6 Source: Developed by Drs. Diallo Landrum, Essie Paz, Roberto Taylor and colleagues, with an educational christian from [employer]. OTONIEL-7 Assessment Billing OTONIEL-7 Assessment Tool: OTONIEL-7 Assessment 57615 Physical exam (Primary Care) Vital Signs: Last Vital Signs Temp 97.9 F 05/18/24 09:17 Pulse 77 05/18/24 09:17 BP 122/80 05/18/24 09:17 Pulse Ox 98 05/18/24 09:17 BMI result Body Mass Index 23.9 Tobacco/Smoking Status: Tobacco use Status Tobacco use date assessed 05/18/24 05/18/24 09:23 Patient Tobacco Use Status Current everyday Tobacco 05/18/24 09:23 Tobacco use type Cigarette 05/18/24 09:23 e-Cigarette/Vaping Use Never Used 05/18/24 09:23 PHQ-9: PHQ-9 Score PHQ-9: Total score 8 05/18/24 09:23 Depression Screening Interpretation: Positive (has a therapist, denies any si or hi) Depression Screening Follow-up: Existing condition and In treatment Thrive Assessment: Date of Thrive Assessment Date Thrive assessed 05/18/24 05/18/24 09:23 Currently or been in a relationship where the following occur: No concerns reported Coding Level of Care Code Est Pt Prev Care 40-64y(56211) Diagnoses Physical exam Z00.00 Nicotine dependence, cigarettes, uncomplicated F17.210 Additional Codes OTONIEL-7 Assessment Billing - OTONIEL-7 Assessment Tool: OTONIEL-7 Assessment 89425 ([id number]) PHQ-9 - 55899 - PHQ-9 Billing: Yes ([id number]) Assessment & Plan Assessment & Plan (1) Physical exam: Code(s): Z00.00 - Encounter for general adult medical examination without abnormal findings Category: Medical (2) Nicotine dependence, cigarettes, uncomplicated: Comment: (current smoker - onset 15yo, 1/2 ppd x 43yrs, now 1/4ppd - 21pyh) Code(s): F17.210 - Nicotine dependence, cigarettes, uncomplicated Category: Medical Plan . Orders: Orders Comprehensive [place]. Panel Fast Today Z00.00 - Encounter for general adult medical examination without abnormal findings PFT pulmonary function test Today F17.210 - Nicotine dependence, cigarettes, uncomplicated Complete Blood Count Auto Diff Today Z00.00 - Encounter for general adult medical examination without abnormal findings TSH reflex Free T4 Today Z00.00 - Encounter for general adult medical examination without abnormal findings UA CC w/rflx Micro + Cult Today Z00.00 - Encounter for general adult medical examination without abnormal findings Lipid Panel Today Z00.00 - Encounter for general adult medical examination without abnormal findings Medications: New nicotine 1 patch transdermal DAILY 28 ea 0RF Refilled ipratropium-albuterol 0.5 mg-3 mg(2.5 mg base)/3 mL 3 mL inhalation Q6H 90 mL 0RF
== END 2024-05-18 10:34 | disposition home or self-care (01) ==
PROVIDERS: PCP Nurse Practitioner Family; Visit Provider Nurse Practitioner Family
DX: Z00.00 Encounter for general adult medical examination without abnormal findings (principal); F17.210 Nicotine dependence, cigarettes, uncomplicated

== ENCOUNTER → 2024-05-18 09:05 | Outpatient (BNVA) | payer OTHER, SELFPAY | PROVIDERS: PCP Nurse Practitioner Family; Visit Provider Nurse Practitioner Family | DX: Z00.00 Encounter for general adult medical examination without abnormal findings (principal); F17.210 Nicotine dependence, cigarettes, uncomplicated | CPT/HCPCS: 96127 ==

== ENCOUNTER 2024-05-20 09:35 | Outpatient (REF) | payer OTHER, SELFPAY ==
[2024-05-20 13:17] LABS: Appearance Urine Clear; Color Urine Yellow; Glucose Urine UA Negative (Negative); Leukocyte Esterase Urine Negative (Negative); Nitrite Urine Negative (Negative); PH 5.5 (5.0-9.0); Specific Gravity - Urine 1.025 (1.005-1.025); UMIC TRIGGER UACC YES; Urine Blood Small (1+) (Negative); Urine Ketones Negative (Negative); Urine Protein Negative (Neg-Trace)
[2024-05-20 13:20] LABS: MANUAL DIFF FLAG NO
[2024-05-20 13:27] LABS: Bacteria Urine None Seen (None Seen); Hyaline Casts Urine 0-2 /LPF (0-2); RBC Urine 0-2 /HPF (0-2); Squamous Epithelial Cell Urine 0-2 /HPF (0-2); WBC Urine 0-5 /HPF (0-5)
[2024-05-20 13:28] LABS: Basophils Absolute Auto 0.1 X10*3/uL (0.0-0.2); Basophils Percent Auto 1.1 % (0-2); Eosinophils Absolute Auto 0.2 X10*3/uL (0.0-0.4); Eosinophils Percent Auto 3.7 % (0-4); Hematocrit 43.2 % (42.0-52.0); Hemoglobin 14.6 g/dl (14.0-18.0); Imm Gran Abs Auto 0.01 X10*3/uL (0.00-0.03); Imm Gran Pct Auto 0.2 % (0.0-0.4); Lymphocytes Percent Auto 32.4 % (20-40); Mean Corpuscular HGB Conc 33.8 g/dl (31.0-36.0); Mean Corpuscular Hemoglobin 30.9 pg (27.0-33.0); Mean Corpuscular Volume 91.3 fL (80.0-98.0); Mean Platelet Volume 9.5 fL (9.4-12.4); Monocytes Absolute Auto 0.6 X10*3/uL (0.1-1.2); Monocytes Percent Auto 9.5 % (2-11); Neutrophils Absolute Auto 3.3 x10*3/uL (2.0-8.3); Neutrophils Percent Auto 53.1 % (45-73); Platelet Count 304 X10*3/uL (160-400); Red Blood Count 4.73 X10*6/uL (4.60-5.80); Red Cell Distribution Width 13.8 % (11.0-16.0); White Blood Count 6.2 X10*3/uL (4.8-10.8)
[2024-05-20 13:44] LABS: Alanine Aminotransferase 20 U/L (0-40); Albumin Level 4.2 g/dL (3.5-5.0); Alkaline Phosphatase 49 U/L (39-117); Anion Gap 10 (12-20); Aspartate Amino Transferase 29 U/L (5-37); Bilirubin Total 0.9 mg/dL (0.0-1.0); Blood Urea Nitrogen 20 mg/dL (9-16); Calcium 9.2 mg/dL (8.4-10.2); Carbon Dioxide 30 mmol/L (22-29); Chloride 105 mmol/L (96-108); Cholesterol 171 mg/dL (<200); Estimated Glomerular Filt Rate > 60; Glucose Fasting 105 mg/dL (60-99); HDL Cholesterol 86 mg/dL (>40); LDL Cholesterol Calculated 79 mg/dL (<100); Potassium 4.6 mmol/L (3.3-5.1); Sodium 140 mmol/L (135-145); Total Protein 6.9 g/dL (6.5-8.0); Triglycerides 33 mg/dL (<150)
[2024-05-20 14:01] LABS: TSH reflex Free T4 0.98 uIU/mL (0.32-4.0)
== END 2024-05-20 09:36 | disposition home or self-care (01) ==
LOC: HO.HMGCLDS 09:35
PROVIDERS: PCP Nurse Practitioner Family; Visit Provider Nurse Practitioner Family
DX: Z00.00 Encounter for general adult medical examination without abnormal findings (principal); Z13.6 Encounter for screening for cardiovascular disorders
CPT/HCPCS: 36415; 80053; 80061; 81001; 84443; 85025

== ENCOUNTER 2024-05-28 09:30 | Outpatient (REF) | payer OTHER, SELFPAY ==
[2024-05-28 13:31] LABS: Appearance Urine Clear; Color Urine Yellow; Glucose Urine UA Negative (Negative); Leukocyte Esterase Urine Negative (Negative); Nitrite Urine Negative (Negative); Specific Gravity - Urine 1.025 (1.005-1.025); UMIC TRIGGER UACC YES; Urine Blood Small (1+) (Negative); Urine Ketones Negative (Negative); Urine Protein Negative (Neg-Trace)
[2024-05-28 13:35] LABS: Bacteria Urine None Seen (None Seen); Hyaline Casts Urine 0-2 /LPF (0-2); Squamous Epithelial Cell Urine 0-2 /HPF (0-2); WBC Urine 0-5 /HPF (0-5)
[2024-05-28 15:05] LABS: Urine Cytology See Pathology rpt
== END 2024-05-28 09:31 | disposition home or self-care (01) ==
LOC: HO.HMGCLDS 09:30
PROVIDERS: PCP Nurse Practitioner Family; Visit Provider Nurse Practitioner Family
DX: R31.29 Other microscopic hematuria (principal)
CPT/HCPCS: 81001; 87086; 88112

== ENCOUNTER 2024-08-18 10:01 | Outpatient (REF) | payer OTHER, SELFPAY ==
--- NOTE | ~2024-08-18 | US_ITS ---
EXAMINATION: US RETROPERITONEUM HISTORY: R31.29 - Other microscopic hematuria TECHNIQUE: Real-time grayscale ultrasound imaging of the kidneys was performed and images were reviewed. COMPARISON: Comparison is made with the prior examination dated 03/05/2021. FINDINGS: Right kidney: The right kidney measures 10.8 x 4.6 x 5.2 cm. Renal parenchymal echotexture and thickness are normal. There are no masses. There is no hydronephrosis or renal calculi. Left Kidney: The left kidney measures 12.0 x 5.4 x 4.9 cm. Renal parenchymal echotexture and thickness are normal. There are no masses. There is a 2 mm nonobstructing calculus in the interpolar region. There is no hydronephrosis. Urinary bladder is nondistended and imaging of the urinary bladder was rescheduled. US/US retroperitoneal comp IMPRESSION: 2 mm nonobstructing left renal calculus. Otherwise unremarkable renal ultrasound. Imaging of the urinary bladder was rescheduled. Electronically signed by: Diallo Obando MD 08/18/2024 11:01 AM EDT
== END 2024-08-18 10:02 | disposition home or self-care (01) ==
LOC: HO.US 10:01
PROVIDERS: PCP Nurse Practitioner Family; Visit Provider Nurse Practitioner Family
DX: R31.29 Other microscopic hematuria (principal)
CPT/HCPCS: 76770

== ENCOUNTER → 2024-08-18 10:03 | Outpatient (BNV) | payer OTHER, SELFPAY | PROVIDERS: PCP Nurse Practitioner Family; Visit Provider Radiology Diagnostic Radiology | DX: N20.0 Calculus of kidney (principal) | CPT/HCPCS: 76770 ==

== ENCOUNTER 2024-08-20 08:20 | Outpatient (REF) | payer OTHER, SELFPAY ==
--- NOTE | 2024-08-20 08:49 | PFT_ITS ---
Flows: FEV1: 96 % of predicted at 3.34 L FVC: 126 % of predicted at 5.66 L FEV1/FVC: 59 % Bronchodilator response: Absent Volumes: Total lung capacity: 104 % of predicted at 7.27 L Residual volume: 78 % of predicted at 1.65 L Slow vital capacity: 114 % of predicted at 5.62 L Expiratory reserve volume: 205 % of predicted at 2.62 L Diffusion capacity: Mildly decreased Impression: Mild obstructive ventilatory defect with no bronchodilator response. Decreased diffusion capacity suggests emphysema. MTDD
[2024-08-20 09:33] VITALS: PULSE 64; O2SAT 98
== END 2024-08-20 08:21 | disposition home or self-care (01) ==
LOC: HO.RESP 08:20
PROVIDERS: PCP Nurse Practitioner Family; Visit Provider Nurse Practitioner Family
DX: F17.210 Nicotine dependence, cigarettes, uncomplicated (principal)
CPT/HCPCS: 94010; 94727; 94729

== ENCOUNTER → 2024-08-20 08:49 | Outpatient (BNV) | payer OTHER, SELFPAY | PROVIDERS: PCP Nurse Practitioner Family; Visit Provider Internal Medicine Pulmonary Disease | DX: F17.210 Nicotine dependence, cigarettes, uncomplicated (principal) | CPT/HCPCS: 94060; 94727; 94729 ==

== ENCOUNTER 2024-09-08 11:45 | Outpatient (REF) | payer OTHER, SELFPAY ==
[2024-09-08 13:01] LABS: TSH reflex Free T4 1.82 uIU/mL (0.32-4.0)
[2024-09-08 13:05] LABS: Erythrocyte Sedimentation Rate 2 MM/HR (0-15)
[2024-09-08 13:14] LABS: Folate 10.7 ng/mL (> or = 4.0); Vitamin B12 434 pg/mL (200-900)
[2024-09-09 23:03] LABS: Lyme Abs Screen <0.90 index
== END 2024-09-08 11:46 | disposition home or self-care (01) ==
LOC: HO.LAB 11:45
PROVIDERS: PCP Nurse Practitioner Family; Visit Provider Psychiatry & Neurology Neurology
DX: G62.9 Polyneuropathy, unspecified (principal); G72.9 Myopathy, unspecified
CPT/HCPCS: 36415; 82085; 82550; 82607; 82746; 84443; 85652; 86617; 86618

== ENCOUNTER 2024-09-29 10:30 | Outpatient (REF) | payer OTHER, SELFPAY ==
--- NOTE | 2024-09-29 11:12 | EMG_ITS ---
Impression: Normal motor and sensory nerve conduction velocities in the lower extremities except for low motor and sensory amplitudes in the peroneal nerves bilaterally.. EMG of the left L2-S1 innervated muscles is suggestive of mild distal neuropathic changes Please see the detailed neurophysiology lab report. MTDD
== END 2024-09-29 10:31 | disposition home or self-care (01) ==
LOC: HO.NEURO 10:30
PROVIDERS: PCP Nurse Practitioner Family; Visit Provider Psychiatry & Neurology Neurology
DX: G62.9 Polyneuropathy, unspecified (principal); R20.0 Anesthesia of skin; R20.2 Paresthesia of skin
CPT/HCPCS: 95886; 95911

== ENCOUNTER → 2024-09-29 11:12 | Outpatient (BNV) | payer OTHER, SELFPAY | PROVIDERS: PCP Nurse Practitioner Family; Visit Provider Psychiatry & Neurology Neurology | DX: G62.89 Other specified polyneuropathies (principal) | CPT/HCPCS: 95886; 95911 ==

== ENCOUNTER 2024-10-12 11:27 | Outpatient (AMB) | payer OTHER, SELFPAY ==
--- NOTE | 2024-10-12 11:30 | A.OFFVIS_ITS ---
Intake Visit Reasons: 4 weeks Allergies No Known Allergies (No Known Allergies*) Allergy (Verified 05/18/24 10:00) Medication List - Last Reconciled 10/12/24 by Stephane Whitney MD albuterol sulfate 90 mcg/actuation 1 inh inhalation Q6-8H PRN 30 days amlodipine 2.5 mg PO DAILY 90 days atorvastatin 10 mg PO BEDTIME baclofen 10 mg PO DAILY PRN bupropion HCl SR 150 mg PO BID clonazepam 1 mg PO DAILY 30 days fluoxetine 10 mg PO QAM fluticasone propionate 220 mcg/actuation (Flovent HFA) 2 puffs inhalation BID gabapentin 300 mg PO BEDTIME 30 days ipratropium-albuterol 0.5 mg-3 mg(2.5 mg base)/3 mL 3 mL inhalation Q6H ipratropium-albuterol 20-100 mcg/actuation (Combivent Respimat) 1 puff inhalation QID magnesium oxide 400 mg PO DAILY nicotine 1 patch transdermal DAILY HPI Comments Details: This is a 59-year-old man who is 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 Puri. He now comes in with one to two-year history of low back pain and pain in his calves and thighs and periods of severe muscle cramping in??the thighs and on one occasion in the left biceps, that can last for a half hour. The legs are better . Gets more abnormal sensations in the night and it wakes him up. He gets up and moves around. 09/29/24 NCV/EMG of LE: Normal motor and sensory nerve conduction velocities in the lower extremities except for low motor and sensory amplitudes in the peroneal nerves bilaterally. EMG of the left L2-S1 innervated muscles is suggestive of mild distal neuropathic changes Labs Normal. [facility] Medical History (Updated 10/08/24 @ 14:00 by Paul Hooks MA) Peripheral neuropathy Myopathy History of meningioma of the brain HTN (hypertension) Dyslipidemia Asthma Nicotine dependence, cigarettes, uncomplicated Enlarged prostate Positive colorectal cancer screening using Cologuard test Psoriasis Renal calculi Surgical History History of craniotomy History of lithotripsy History of nasal septoplasty History of colonoscopy History of esophagogastroduodenoscopy (EGD) Family History Father No problems noted. Mother Alzheimer's disease Sister No problems noted. Sister No problems noted. Daughter No problems noted. Daughter No problems noted. Social History Housing: House Alcohol intake: unknown Patient Tobacco Use Status: Current everyday Tobacco user Tobacco use type: Cigarette Cigarettes Per Day: 5 Years Smoked: (onset 15yo, 1/2 ppd x 43yrs, now 1/4ppd - 21pyh) e-Cigarette/Vaping Use: Never Used Substance Use Type: Marijuana service: No Current occupational status: disabled Cognitive needs: No Hearing needs: No Vision needs: Yes Assessment & Plan Assessment & Plan (1) Numbness and tingling of both lower extremities: Code(s): R20.0 - Anesthesia of skin; R20.2 - Paresthesia of skin Category: Medical (2) Headache: Code(s): R51.9 - Headache, unspecified Category: Medical (3) Meningioma: Comment: surgically removed, sphenoid wing grade 1 Code(s): D32.9 - Benign neoplasm of meninges, unspecified Category: Medical Plan Trial of Gabapentin 300mg hs Orders: Orders CT head/brain wo/w IV con Today D32.9 - Benign neoplasm of meninges, unspecified Medications: New gabapentin 300 mg PO BEDTIME 30 caps 3RF 30 days Coding Level of Care Code Est Pt Level 4 (70512) Diagnoses Numbness and tingling of both lower extremities R20.0; R20.2 Headache R51.9 Meningioma D32.9
== END 2024-10-12 11:54 | disposition home or self-care (01) ==
LOC: HO.HSM 11:28
PROVIDERS: PCP Nurse Practitioner Family; Referring Provider Nurse Practitioner Family; Visit Provider Psychiatry & Neurology Neurology
DX: R20.0 Anesthesia of skin (principal); R20.2 Paresthesia of skin; R51.9 Headache, unspecified; D32.9 Benign neoplasm of meninges, unspecified
CPT/HCPCS: 99214

== ENCOUNTER 2024-10-20 09:43 | Outpatient (REF) | payer OTHER, SELFPAY ==
--- NOTE | ~2024-10-20 | CT_ITS ---
CLINICAL HISTORY: F17.210 - Nicotine dependence, cigarettes, uncomplicated CT lung cancer screening (LDCT) Comparison: CT/REG/MS/SR - CT LUNG SCREENING - 07/25/23 09:38 EDT Technique: Axial CT images of the chest using low-dose technique. Referring provider counseled the patient on shared decision-making for LDCT screening. Additional counseling was provided on smoking cessation. Effective radiation dose total: DLP 43.1 mGycm, CTDIvol 1.2 mGy. Findings: Lung: The trachea and central bronchi are patent. No dense consolidation, pleural effusion or pneumothorax. No pulmonary nodules or masses. Coronary artery calcifications: Mild Normal heart size. Aorta appears nonaneurysmal. No pericardial effusion or adenopathy. Decompressed esophagus. Unremarkable thyroid and chest wall. Limited upper abdomen: Unremarkable Other: No acute osseous findings. Impression: No suspicious pulmonary nodules or acute cardiopulmonary disease. Mild coronary calcification. Lung rads category 1 Category 1: Normal; continue annual screening Category 2: Benign appearance or behavior, continue annual screening Category 3: Probably benign, [address] recommended Category 4A: Suspicious, [address] recommended; may consider PET/CT Category 4B: Suspicious, Additional diagnostics and/or tissue sampling recommended Category 4X: Suspicious, Additional diagnostics and/or tissue sampling recommended Category 0: Recalls (incomplete screen due to Incomplete coverage, Noise, Respiratory motion, Expiration, Obscured by acute abnormality) This document has been electronically signed by: Isamar Gan MD on 10/21/2024 09:07:29
== END 2024-10-20 09:44 | disposition home or self-care (01) ==
LOC: HO.CT 09:43
PROVIDERS: PCP Nurse Practitioner Family; Visit Provider Physician Assistant Medical
DX: Z12.2 Encounter for screening for malignant neoplasm of respiratory organs (principal); F17.210 Nicotine dependence, cigarettes, uncomplicated
CPT/HCPCS: 71271

== ENCOUNTER → 2024-10-20 09:45 | Outpatient (BNV) | payer OTHER, SELFPAY | PROVIDERS: PCP Nurse Practitioner Family; Visit Provider Radiology Diagnostic Radiology | DX: Z12.2 Encounter for screening for malignant neoplasm of respiratory organs (principal); F17.210 Nicotine dependence, cigarettes, uncomplicated | CPT/HCPCS: 71271 ==

== ENCOUNTER 2024-11-15 08:27 | Outpatient (REF) | payer OTHER, SELFPAY ==
--- NOTE | ~2024-11-15 | CT_ITS ---
CLINICAL HISTORY: D32.9 - Benign neoplasm of meninges, unspecified --- Additional Notes or Special Instructions: f u of sub-frontal meningioma , s p resection CT head with and without contrast Comparison: None provided Findings: No intra-axial mass, midline shift, hydrocephalus, or acute hemorrhage. Postoperative left frontotemporal changes. No evidence of abnormal enhancement especially in the operative bed. The visualized paranasal sinuses and mastoid air cells are normal. The orbits are within normal limits. There is no acute fracture. IMPRESSION: Postoperative left frontotemporal changes. No evidence of abnormal enhancement especially in the operative bed. This document has been electronically signed by: Sarah Bates MD on 11/16/2024 12:57:13
[2024-11-15] MEDS: iohexoL 350 MG/ML 100 ML INFUS..BTL IV (09:03)
[2024-11-15 15:54] LABS: Creatinine POC 0.6 mg/dL (0.5-1.4)
[2024-11-15 15:55] LABS: GFR POC > 60
== END 2024-11-15 08:28 | disposition home or self-care (01) ==
LOC: HO.CT 08:27
PROVIDERS: PCP Nurse Practitioner Family; Visit Provider Psychiatry & Neurology Neurology
DX: D32.9 Benign neoplasm of meninges, unspecified (principal)
CPT/HCPCS: 70470; 82565; Q9967

== ENCOUNTER → 2024-11-15 08:28 | Outpatient (BNV) | payer OTHER, SELFPAY | PROVIDERS: PCP Nurse Practitioner Family; Visit Provider Radiology Diagnostic Radiology | DX: Z86.011 Personal history of benign neoplasm of the brain (principal) | CPT/HCPCS: 70470 ==

== ENCOUNTER 2024-11-18 08:47 | Outpatient (AMB) | payer OTHER, SELFPAY ==
--- NOTE | 2024-11-18 08:54 | MHC.PC.OV ---
Vital Signs 11/18/24 08:57 Height 5 ft 9 in Weight 162 lb BMI 23.9 BP 124/88 Blood Pressure Location Rt brachial Position Sitting Respiration 16 Pulse 82 Pulse Source Pulse Oximeter Pulse Oximetry (%) 98 Oxygen Delivery Method Room Air Intake Visit Reasons: 6m follow up Supervisor Electronics Testing Required: No Accompanied by: Self / Same As Patient Allergies No Known Allergies (No Known Allergies*) Allergy (Verified 11/18/24 08:57) Medication List - Last Reconciled 11/18/24 by VIV NoblesP- albuterol sulfate 90 mcg/actuation 1 inh inhalation Q6-8H PRN 30 days atorvastatin 10 mg PO BEDTIME bupropion HCl SR 150 mg PO BID clonazepam 1 mg PO DAILY 30 days ferrous sulfate (Iron (ferrous sulfate)) 325 mg PO DAILY fluoxetine 10 mg PO QAM fluticasone propionate 220 mcg/actuation (Flovent HFA) 2 puffs inhalation BID ipratropium-albuterol 0.5 mg-3 mg(2.5 mg base)/3 mL 3 mL inhalation Q6H ipratropium-albuterol 20-100 mcg/actuation (Combivent Respimat) 1 puff inhalation QID magnesium oxide 400 mg PO DAILY multivit with min-folic acid 120 mcg (Centrum Adult 50 Plus Fresh-Fruity) 1 tab PO DAILY nicotine 1 patch transdermal DAILY nicotine (Nicoderm CQ) 1 patch transdermal DAILY Tobacco use date assessed: 11/18/24 Dental Screening Dental Screen Date: 11/18/24 Did you have a dental visit in the last 12 months?: Yes Did you have a dental problem in the last 6 months where you did not have access to dental care?: No Was dental information given to patient?: Patient has dentist HPI 6m follow up HPI Details Chief Complaint The patient presents with discomfort in his anterior thighs and neurological symptoms in his bilateral extremities. History of Present Illness The patient is a 59-year-old male presenting with neurological symptoms in his bilateral extremities and lower back pain. He reports discomfort, particularly in his anterior thighs, and experiences radiculopathy (BLE). The patient has a history of lower back issues and underwent an MRI in December 2021, which revealed lumbar spinal stenosis and nerve root compression. The patient has a history of a meningioma, for which he was previously operated on. He was referred to a neurosurgeon for his lumbar spine issues, but it is unclear if the MRI results were discussed during his visit in 2021. The patient does not recall the discussion, and the neurosurgeon's notes are being tracked down to confirm. The patient is currently experiencing positive straight leg raises bilaterally with radiculopathy and tenderness in his lower back. He exhibits hyperreflexive patellar reflexes and denies any signs of cauda equina syndrome. The patient cannot tolerate gabapentin for his symptoms. His blood pressure is stable, although his amlodipine was stopped by his neurologist for an unspecified reason. Social History Health Maintenance Review of Systems - Neurological: Reports discomfort in anterior thighs and radiculopathy. Denies signs of cauda equina syndrome. - Cardiovascular: Denies chest pain or increased shortness of breath. - Gastrointestinal: Denies abdominal pain. - Neurological: Denies dizziness or blurred vision. Physical Exam General: Cooperative, healthy appearing, comfortable, no acute distress and well developed Orientation: Patient oriented x3 Limitations: No limitations Head: Normal to inspection Ears: Hearing grossly normal bilaterally Nose: Normal external nose present Face and sinus: Normal facial exam Eyes: Appearance normal, both eyes and all related structures Neck: Normal visual inspection and Yes full ROM Respiratory: Normal respiratory effort and able to speak in complete sentences. Clear to auscultation bilaterally Cardiovascular: Regular rate and rhythm. Normal S1 and S2 GI: Normal to inspection. Soft to palpation and nontender Skin: No rashes or lesions noted Neuro: Patient oriented x3 Extremities: Normal to inspection Results - MRI (December 2021): Lumbar spinal stenosis and nerve root compression. Plan The plan involves tracking down the neurosurgeon's notes from the 2021 visit to confirm if the MRI results were discussed. If the results were not reviewed, a repeat MRI may be necessary to assess the current status of the lumbar spine. The patient will be referred back to neurosurgery for further consultation regarding his lumbar spine condition. The patient's intolerance to gabapentin will be considered in managing his symptoms, and alternative medications may be explored. His blood pressure will continue to be monitored, especially after the cessation of amlodipine by his neurologist. Discussion Notes I discussed with the patient the need to track down the neurosurgeon's notes from 2021 to verify if the MRI results were reviewed. We talked about the possibility of repeating the MRI if the results were not previously discussed. I also explained the importance of consulting with neurosurgery for his lumbar spine issues and the need to explore alternative medications due to his intolerance to gabapentin. Patient Instructions - Follow up with neurosurgery for further evaluation of lumbar spine condition. - Monitor blood pressure regularly, especially after stopping amlodipine. - Report any new or worsening symptoms to the healthcare provider immediately. [facility], [facility] Medical History Peripheral neuropathy Myopathy History of meningioma of the brain HTN (hypertension) Dyslipidemia Asthma Nicotine dependence, cigarettes, uncomplicated Enlarged prostate Positive colorectal cancer screening using Cologuard test Psoriasis Renal calculi Surgical History History of craniotomy History of lithotripsy History of nasal septoplasty History of colonoscopy History of esophagogastroduodenoscopy (EGD) Family History Father No problems noted. Mother Alzheimer's disease Sister No problems noted. Sister No problems noted. Daughter No problems noted. Daughter No problems noted. Social History Housing: House Alcohol intake: unknown Patient Tobacco Use Status: Current everyday Tobacco user Tobacco use type: Cigarette Cigarettes Per Day: 5 Years Smoked: (onset 15yo, 1/2 ppd x 43yrs, now 1/4ppd - 21pyh) e-Cigarette/Vaping Use: Never Used Substance Use Type: Marijuana service: No Current occupational status: disabled Cognitive needs: No Hearing needs: No Vision needs: Yes Questionnaire PHQ-9 Over the last 2 weeks, how often have you been bothered by any of the following problems? 1. Little interest or pleasure in doing things: several days 2. Feeling down, depressed, or hopeless: several days 3. Trouble falling or staying asleep, or sleeping too much: several days 4. Feeling tired or having little energy: several days 5. Poor appetite or overeating: several days 6. Feeling bad about yourself - or that you are a failure or have let yourself or your family down: several days 7. Trouble concentrating on things, such as reading the newspaper or watching television: not at all 8. Moving or speaking so slowly that other people could have noticed. Or the opposite - being so fidgety or restless that you have been moving around a lot more than usual: more than half the days 9. Thoughts that you would be better off or of hurting yourself in some way: not at all Total score: 8 Depression Screening Interpretation: Positive (has a therapist, denies any si or hi) Depression Screening Follow-up: Existing condition and In treatment Depression Screening Done: Yes 54985 - PHQ-9 Billing: Yes Source: Developed by Drs. Diallo Landrum, Essie Paz, Roberto Taylor and colleagues, with an educational christian from [employer]. Thrive Questionnaire Date Thrive assessed: 05/18/24 I am a: Patient What is your living situation today?: I have a steady place to live Within the past 12 months, did the food you bought not last and you didn't have the money to get more?: Never true Within the past 12 months, did you worry whether your food would run out before you got money to buy more?: Never true Do you have trouble paying for medicines?: No Do you have trouble getting transportation to medical appointments?: No Do you have trouble paying your heating and electricity bill?: No Do you have trouble taking care of your child, family member or friend?: No Do you have trouble with day-to-day activities such as bathing, preparing meals, shopping, managing finances, etc.?: No Are you currently unemployed and looking for a job?: I choose not to answer this question Are you interested in more education?: No Please select the resources that you would like help with: None Currently or been in a relationship where the following occur: No concerns reported THRIVE Score: 0 OTONIEL-7 AMB Questionnaire OTONIEL-7 Date OTONIEL - 7 assessed: 05/18/24 Feeling nervous, anxious, or on edge: 1 = Several days Not being able to stop or control worryin = Several days Worrying too much about different things: 1 = Several days Trouble relaxin = Several days Being so restless that it is hard to sit still: 0 = Not at all Becoming easily annoyed or irritable: 1 = Several days Feeling afraid as if something awful might happen: 1 = Several days Total OTONIEL-7 score (0-4 normal; 5-9 mild; 10-14 moderate; 15-21 severe): 6 Source: Developed by Drs. Diallo Landrum, Essie Paz, Roberto Taylor and colleagues, with an educational christian from [employer]. OTONIEL-7 Assessment Billing OTONIEL-7 Assessment Tool: OTONIEL-7 Assessment 36782 Physical exam (Primary Care) Vital Signs: Last Vital Signs Pulse 82 11/18/24 08:57 Resp 16 11/18/24 08:57 BP 124/88 11/18/24 08:57 Pulse Ox 98 11/18/24 08:57 Oxygen Delivery Method Room Air 11/18/24 08:57 BMI result Body Mass Index 23.9 Tobacco/Smoking Status: Tobacco use Status Tobacco use date assessed 11/18/24 11/18/24 09:03 Patient Tobacco Use Status Current everyday Tobacco 11/18/24 08:56 Tobacco use type Cigarette 11/18/24 08:56 e-Cigarette/Vaping Use Never Used 11/18/24 08:56 PHQ-9: PHQ-9 Score PHQ-9: Total score 8 11/18/24 09:03 Depression Screening Interpretation: Positive (has a therapist, denies any si or hi) Depression Screening Follow-up: Existing condition and In treatment Thrive Assessment: Date of Thrive Assessment Date Thrive assessed 05/18/24 11/18/24 08:56 Currently or been in a relationship where the following occur: No concerns reported Coding Level of Care Code Est Pt Level 4 (44722) Diagnoses HTN (hypertension) I10 Screening PSA (prostate specific antigen) Z12.5 Low back pain radiating to lower extremity M54.50; M79.606 Nerve root compression G54.9 Numbness and tingling of both lower extremities R20.0; R20.2 Additional Codes OTONIEL-7 Assessment Billing - OTONIEL-7 Assessment Tool: OTONIEL-7 Assessment 79152 ([id number]) PHQ-9 - 88596 - PHQ-9 Billing: Yes ([id number]) Assessment & Plan Assessment & Plan (1) HTN (hypertension): Code(s): I10 - Essential (primary) hypertension Category: Medical (2) Screening PSA (prostate specific antigen): Code(s): Z12.5 - Encounter for screening for malignant neoplasm of prostate Category: Medical (3) Low back pain radiating to lower extremity: Code(s): M54.50 - Low back pain, unspecified; M79.606 - Pain in leg, unspecified Category: Medical (4) Nerve root compression: Code(s): G54.9 - Nerve root and plexus disorder, unspecified Category: Medical (5) Numbness and tingling of both lower extremities: Code(s): R20.0 - Anesthesia of skin; R20.2 - Paresthesia of skin Category: Medical Plan . Orders: Orders Comprehensive Mcintosh. Panel Fast Today I10 - Essential (primary) hypertension TSH reflex Free T4 Today I10 - Essential (primary) hypertension UA CC w/rflx Micro + Cult Today I10 - Essential (primary) hypertension Prostate Specific Antigen Scr Today Z12.5 - Encounter for screening for malignant neoplasm of prostate Complete Blood Count Auto Diff Today I10 - Essential (primary) hypertension Lipid Panel Today I10 - Essential (primary) hypertension Medications: New nicotine (Nicoderm CQ) 1 patch transdermal DAILY 28 ea 0RF Discontinued nicotine Discontinued Reason: Doctor's Order 1 patch transdermal DAILY 28 ea 0RF
[2024-11-18 08:57] VITALS: BP 124/88; PULSE 82; RESP 16; O2SAT 98; BMI 23.9
== END 2024-11-18 09:52 | disposition home or self-care (01) ==
LOC: HO.HMCC 08:48
PROVIDERS: PCP Nurse Practitioner Family; Visit Provider Nurse Practitioner Family
DX: I10 Essential (primary) hypertension (principal); Z12.5 Encounter for screening for malignant neoplasm of prostate; M54.50 Low back pain, unspecified; M79.606 Pain in leg, unspecified; G54.9 Nerve root and plexus disorder, unspecified; R20.0 Anesthesia of skin; R20.2 Paresthesia of skin

== ENCOUNTER → 2024-11-18 08:47 | Outpatient (BNVA) | payer OTHER, SELFPAY | PROVIDERS: PCP Nurse Practitioner Family; Visit Provider Nurse Practitioner Family | DX: I10 Essential (primary) hypertension (principal); M54.50 Low back pain, unspecified; M79.652 Pain in left thigh; M79.651 Pain in right thigh; G54.9 Nerve root and plexus disorder, unspecified; R20.0 Anesthesia of skin; R20.2 Paresthesia of skin | CPT/HCPCS: 96127 ==

== ENCOUNTER 2024-11-22 10:36 | Outpatient (AMB) | payer OTHER, SELFPAY ==
--- NOTE | 2024-11-22 10:51 | A.OFFVIS_ITS ---
Vital Signs 11/22/24 10:55 Height 5 ft 9 in Weight 164 lb 3.91 oz BMI 24.3 BP 128/81 Blood Pressure Location Lt brachial Respiration 18 Pulse 67 Pulse Source Pulse Oximeter Pulse Oximetry (%) 99 Oxygen Delivery Method Room Air Intake Visit Reasons: COPD Patient Financial Specialist Required: No Allergies No Known Allergies (No Known Allergies*) Allergy (Verified 11/22/24 11:57) Medication List - Last Reconciled 11/22/24 by Stephane Cruz MD albuterol sulfate 90 mcg/actuation 1 inh inhalation Q6-8H PRN 30 days atorvastatin 10 mg PO BEDTIME bupropion HCl SR 150 mg PO BID clonazepam 1 mg PO DAILY 30 days ferrous sulfate (Iron (ferrous sulfate)) 325 mg PO DAILY fluoxetine 10 mg PO QAM fluticasone propionate 220 mcg/actuation (Flovent HFA) 2 puffs inhalation BID ipratropium-albuterol 0.5 mg-3 mg(2.5 mg base)/3 mL 3 mL inhalation Q6H ipratropium-albuterol 20-100 mcg/actuation (Combivent Respimat) 1 puff inhalation QID magnesium oxide 400 mg PO DAILY multivit with min-folic acid 120 mcg (Centrum Adult 50 Plus Fresh-Fruity) 1 tab PO DAILY nicotine (Nicoderm CQ) 1 patch transdermal DAILY HPI HPI COPD: Details: This 59 years old gentleman is being seen for the 1st time for pulmonary evaluation and management. Is chief complaint is mild intermittent cough and mild shortness of breath on exertion, such as doing physical work in the house or backyard, or walking a few blocks. The symptoms are going on for quite a few years and now somewhat more pronounced. A few months ago he was seen in urgent care clinic with possible viral pn eumonitis, and he was advised to use Flovent-to 22 puffs b.i.d. and also given prescription for ipratropium-albuterol solution to be used in the nebulizer Q 6 hours p.r.n.. He has been using albuterol HFA or the nebulizer off and on but not on a daily regular basis. This gentleman was seen by me in the office about 20 years ago, for nasal congestion and cough, and after that he was relatively stable. In the meantime he has been treated for chronic allergic rhinitis, and has had immunotherapy initially injections every week then they have been down graded to once a week. He used to see Dr. Main who has now retired, but still gets the injections in his office. Because he was having relatively more frequent cough and nasal congestion, it was suggested to him that may be they will have to increase the frequency of injection. He comes for having discussion with me whether he should have the allergy injections every week or every 2 weeks or just keeping it at once a month . Also wants to discuss about any upgrading of his treatment regimen . This gentleman has been a smoker for whole adult life. He has now cut down to about 5-7 cigarettes a day.. Is additional symptoms include pain in the thighs and sometime going down to the cough. Is recent MRI of the spine has shown spinal stenosis and some degenerative arthritis. So his pain may be due to radiculitis. 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 HE HAS OCCASIONAL HEADACHE, NO SEIZURES. HIS BEING FOLLOWED BY NEUROLOGIST , DR. BENDER HERE AT [facility]. Patient does have history of chronic anxiety and mild depression and he is on clonazepam 1 mg once a day bupropion 150 mg b.i.d. and fluoxetine 10 mg daily . [facility] Medical History (Updated 11/22/24 @ 12:27 by Stephane Cruz MD) Allergic rhinitis Peripheral neuropathy Myopathy History of meningioma of the brain HTN (hypertension) Dyslipidemia Asthma Nicotine dependence, cigarettes, uncomplicated Enlarged prostate Positive colorectal cancer screening using Cologuard test Psoriasis Renal calculi Surgical History History of craniotomy History of lithotripsy History of nasal septoplasty History of colonoscopy History of esophagogastroduodenoscopy (EGD) Family History Father No problems noted. Mother Alzheimer's disease Sister No problems noted. Sister No problems noted. Daughter No problems noted. Daughter No problems noted. Social History Housing: House Alcohol intake: unknown Patient Tobacco Use Status: Current everyday Tobacco user Tobacco use type: Cigarette Cigarettes Per Day: 5 Years Smoked: (onset 15yo, 1/2 ppd x 43yrs, now 1/4ppd - 21pyh) e-Cigarette/Vaping Use: Never Used Substance Use Type: Marijuana service: No Current occupational status: disabled Cognitive needs: No Hearing needs: No Vision needs: Yes Review of Systems Const All systems reviewed & are unremarkable except as noted in HPI and below Eyes Reports no additional complaints ENT Reports nasal congestion and Reports nasal discharge Card Denies chest pain, Denies irregular heart rhythm and Denies leg edema Resp Reports as per HPI GI Reports no additional complaints Reports no additional complaints Musc Reports back pain and Reports other (Pain/discomfort in the thighs) Skin/Breast Reports system reviewed and no additional complaints, except as documented Neuro Reports no additional complaints Psych Reports anxiety and Reports depression (Controlled) Endo Reports no additional complaints Artem/Lymph Reports no additional complaints Aller/Immun Reports no additional complaints Physical Exam Vital Signs: Last Vital Signs Pulse 67 11/22/24 10:55 Resp 18 11/22/24 10:55 BP 128/81 11/22/24 10:55 Pulse Ox 99 11/22/24 10:55 Oxygen Delivery Method Room Air 11/22/24 10:55 BMI result Body Mass Index 24.3 Const General: healthy appearing, comfortable, no acute distress, alert and awake Orientation/consciousness: patient oriented x3 HEENT Head: Yes normal to inspection General nose exam: No nasal polyps present, No nasal discharge present and Other nasal findings present (Only minimal nasal congestion on both sides) Face and sinus: Yes sinuses nontender Mouth: oropharynx normal Throat: Yes posterior oropharynx normal Eyes General: appearance normal, both eyes and all related structures Neck Neck: Yes normal visual inspection, Yes no lymphadenopathy, Yes trachea midline and Yes no JVD Thyroid: Thyroid normal Chest Chest palpation & inspection: normal inspection of the chest, normal palpation of entire chest wall and no tenderness Resp Other: Chest is symmetrical and percussion note is resonant Breath sounds are slightly distant with prolonged expiratory phase. No wheezes or rhonchi are heard. Cardio Palpation: normal PMI Rate: regular rate Rhythm: regular rhythm Heart sounds: no gallops and no murmurs Peripheral pulses: Peripheral pulses 2+ throughout GI Palpation (GI): Soft to palpation, nontender, No hepatosplenomegaly present and no masses Auscultation: normal bowel sounds Back/Spine/Pelvis Thoracic/Lumbar Spine: thoracic and lumbar spine normal to inspection and thoraco-lumbar ROM limited Skin General skin exam: no rashes or lesions noted Neuro General: patient oriented x3 and no focal motor deficits Cranial nerves: Yes CN's II-XII intact bilaterally Extrem General: Yes normal to inspection, Yes no clubbing, cyanosis or edema and Yes no calf tenderness Psych Appearance: grossly normal and well kempt Speech and movement: Normal speech and movement present Results Reviewed Results Reviewed: LDCT on 10/21/24 No suspicious pulmonary nodules or acute cardiopulmonary disease. Mild coronary calcification. Lung rads category 1 PFT . Flows: FEV1: 96 % of predicted at 3.34 L FVC: 126 % of predicted at 5.66 L FEV1/FVC: 59 % Bronchodilator response: Absent Volumes: Total lung capacity: 104 % of predicted at 7.27 L Residual volume: 78 % of predicted at 1.65 L Slow vital capacity: 114 % of predicted at 5.62 L Expiratory reserve volume: 205 % of predicted at 2.62 L Diffusion capacity: Mildly decreased IMP. Mild obstructive airway disorder, no significant response to bronchodilator therapy, except slight increase in FEF 25-75 Assessment & Plan Assessment & Plan (1) COPD (chronic obstructive pulmonary disease): Comment: As per pulmonary function test, he does have mild obstructive airway disorder, without any significant improvement after bronchodilator therapy. These findings suggest COPD , and he may have some element of bronchial asthma, but it is now progressed into COPD. I explained to him that this is due to his long-time smoking and indicates that is time to quit smoking completely. Code(s): J44.9 - Chronic obstructive pulmonary disease, unspecified Category: Medical Plan: As far as treatment is concerned, he is still slightly symptomatic in spite of using Flovent and also albuterol p.r.n.. I think addition of a long-acting bronchodilator may be helpful. At this time I will start him on ICS/LABA combination and see if he feels better. I have ordered fluticasone-salmeterol 250-50 1 inhalation b.i.d.. And use albuterol HFA 2 puffs Q 6 hours only p.r.n., or alternatively may use albuterol-ipratropium solution in the nebulizer Q 6 hours p.r.n. at home. Will check him in 2 months to go over his progress. He does have a peak flow meter at home and I advised him to keep track of his peak flows on a daily bases or at least weekly basis. (2) Nicotine dependence, cigarettes, uncomplicated: Comment: (current smoker - onset 15yo, 1/2 ppd x 43yrs, now 1/4ppd - 21pyh) He told me that he smokes 4 packs of cigarettes in 2 weeks, Discussed about relationship of COPD with his smoking. I told him that this time to quit smoking completely. Code(s): F17.210 - Nicotine dependence, cigarettes, uncomplicated Category: Medical Plan: Is the LDCT scan and findings are encouraging, and it is best to stop smoking now. In the meantime continue to have annual LD CT scanning. (3) Allergic rhinitis: Comment: He has had long standing symptoms of nasal congestion with intermittent sneezing. He has been on allergy injections for many years. Currently getting once a month. I told him that it is very difficult to say whether he still needs the injections are not. But he can continue the injection once a month no need to go to more frequent usage. Code(s): J30.9 - Allergic rhinitis, unspecified Category: Medical Plan: Use Flonase 1 2 sprays each nostril b.i.d. p.r.n. Medications: New fluticasone propion-salmeterol 250-50 mcg/dose 1 inh inhalation BID 60 ea 5RF Asthma/COPD 30 days MDD Asthma/COPD Coding Level of Care Code New Pt Level 4 (75740) Diagnoses COPD (chronic obstructive pulmonary disease) J44.9 Nicotine dependence, cigarettes, uncomplicated F17.210 Allergic rhinitis J30.9
[2024-11-22 10:55] VITALS: BP 128/81; PULSE 67; RESP 18; O2SAT 99; BMI 24.3
== END 2024-11-22 10:50 | disposition home or self-care (01) ==
LOC: HO.HPS 10:39
PROVIDERS: PCP Nurse Practitioner Family; Referring Provider Nurse Practitioner Family; Visit Provider Internal Medicine
DX: J44.9 Chronic obstructive pulmonary disease, unspecified (principal); F17.210 Nicotine dependence, cigarettes, uncomplicated; J30.9 Allergic rhinitis, unspecified
CPT/HCPCS: 99204

== ENCOUNTER 2024-12-08 09:24 | Outpatient (AMB) | payer OTHER, SELFPAY | END 2024-12-08 09:27 | disposition home or self-care (01) | LOC: HO.HMGAL 09:24 | PROVIDERS: PCP Nurse Practitioner Family; Visit Provider Registered Nurse Emergency | DX: J30.89 Other allergic rhinitis (principal) | CPT/HCPCS: 95117; 95165 ==

== ENCOUNTER 2025-01-05 09:01 | Outpatient (AMB) | payer OTHER, SELFPAY ==
--- NOTE | 2025-01-05 09:24 | A.OFFVIS_ITS ---
Intake Visit Reasons: 3m s/p meningioma, ROOT, Leg paresthesia at night Allergies No Known Allergies (No Known Allergies*) Allergy (Verified 11/22/24 11:57) Medication List - Last Reconciled 01/05/25 by Stephane Whitney MD albuterol sulfate 90 mcg/actuation 1 inh inhalation Q6-8H PRN 30 days bupropion HCl SR 150 mg PO BID clonazepam 1 mg PO DAILY 30 days ferrous sulfate (Iron (ferrous sulfate)) 325 mg PO DAILY fluoxetine 10 mg PO QAM fluticasone propion-salmeterol 250-50 mcg/dose 1 inh inhalation BID 30 days MDD Asthma/COPD fluticasone propion-salmeterol 250-50 mcg/dose (Wixela Inhub) 1 inh inhalation BID fluticasone propionate 220 mcg/actuation (Flovent HFA) 2 puffs inhalation BID ipratropium-albuterol 0.5 mg-3 mg(2.5 mg base)/3 mL 3 mL inhalation Q6H ipratropium-albuterol 20-100 mcg/actuation (Combivent Respimat) 1 puff inhalation QID magnesium oxide 400 mg PO DAILY multivit with min-folic acid 120 mcg (Centrum Adult 50 Plus Fresh-Fruity) 1 tab PO DAILY nicotine (Nicoderm CQ) 1 patch transdermal DAILY HPI Comments Details: One week ago decided to fix daniel barlow.. That night had severe cramp in right ant. thigh for 3 minutes. . Next night left calf cramp for 30 secs. 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 Puri. He now comes in with one to two-year history of low back pain and pain in his calves and thighs and periods of severe muscle cramping in??the thighs and on one occasion in the left biceps, that can last for a half hour. The legs are better . Gets more abnormal sensations in the night and it wakes him up. He gets up and moves around. 09/29/24 NCV/EMG of LE: Normal motor and sensory nerve conduction velocities in the lower extremities except for low motor and sensory amplitudes in the peroneal nerves bilaterally. EMG of the left L2-S1 innervated muscles is suggestive of mild distal neuropathic changes Labs Normal. PFSH Medical History (Updated 01/05/25 @ 09:41 by Stephane Whitney MD) Allergic rhinitis Peripheral neuropathy Myopathy History of meningioma of the brain HTN (hypertension) Dyslipidemia Asthma Nicotine dependence, cigarettes, uncomplicated Enlarged prostate Positive colorectal cancer screening using Cologuard test Psoriasis Renal calculi Surgical History History of craniotomy History of lithotripsy History of nasal septoplasty History of colonoscopy History of esophagogastroduodenoscopy (EGD) Family History Father No problems noted. Mother Alzheimer's disease Sister No problems noted. Sister No problems noted. Daughter No problems noted. Daughter No problems noted. Social History Housing: House Alcohol intake: unknown Patient Tobacco Use Status: Current everyday Tobacco user Tobacco use type: Cigarette Cigarettes Per Day: 5 Years Smoked: (onset 15yo, 1/2 ppd x 43yrs, now 1/4ppd - 21pyh) e-Cigarette/Vaping Use: Never Used Substance Use Type: Marijuana service: No Current occupational status: disabled Cognitive needs: No Hearing needs: No Vision needs: Yes Review of Systems Const Details: ?Sleep:? Difficulty getting to sleepdenies.? Difficulty maintaining sleepdenies?.? Urge to move legsdenies.? Teeth grindingdenies.? Shouting or Kicking during sleep denies.? Abnormal behavior during sleepdenies.? Excessive sleepdenies.? Snoring denies.? Daytime sleepinessdenies. ???General/Constitutional:? Change in appetitedenies.? Chillsdenies.? Fatiguedenies.? Feverdenies.? Weight gaindenies.? Weight lossdenies. ???Ophthalmologic:? Blurred visiondenies.? Diminished visual acuitydenies. ???ENT:? Stuffinessdenies.? Decreased hearingdenies.? Dry mouthdenies.? Ear paindenies.? Nosebleeddenies.? Ringing in the earsdenies.? Sinus paindenies.? Sore throat denies.? Swollen glandsdenies. ???Endocrine:? Cold intolerancedenies.? Excessive thirstdenies.? Frequent urinationdenies.? Heat intolerancedenies. ???Respiratory:? Shortness of breathdenies.? Chest paindenies.? Coughdenies. ???Breast:? Breast lumpdenies.? Nipple dischargedenies. ???Cardiovascular:? Chest pain at restdenies.? Chest pain with exertiondenies.? Claudicationdenies .? Dizzinessdenies.? Fluid accumulation in the legsdenies.? Irregular heartbeat denies.? Palpitationsdenies. ???Gastrointestinal:? Abdominal paindenies.? Constipationdenies.? Diarrheadenies.? Difficulty swallowingdenies.? Heartburndenies.? Nauseadenies.? Rectal bleedingdenies. ???Hematology:? Easy bruisingdenies.? Prolonged bleedingdenies. ???Genitourinary:? Frequent urinationdenies.? Urgencydenies.? Incontinencedenies.? Erectile Dysfunctiondenies. ???Musculoskeletal:? Neck paindenies.? Back painYes..? Muscle aches Both thighs and calves and muscle cramps.? Painful jointsdenies.? Sciaticadenies.? Weaknesslegs. ???Podiatric:? Difficulty walkingdenies.? Foot numbnessdenies. ???Neurologic:? Difficulty swallowingdenies.? Balance difficultydenies.? Coordinationnormal.? Difficulty speakingdenies.? Dizzinessdenies.? Faintingdenies.? Gait abnormality denies.? Headachedenies.? Loss of strengthdenies.? Loss of use of extremity denies.? Low back paindenies.? Memory lossdenies.? Seizuresdenies.? Ticsdenies.? Tingling/Numbnessdenies.? Transient loss of visiondenies.? Tremordenies. ???Psychiatric:? Anxietydenies.? Auditory/visual hallucinationsdenies.? Delusionsdenies.? Depressed mooddenies.? Stressorsdenies.? Substance abusedenies.? Suicidal thoughtsdenies. Physical Exam Neuro Other: Neurological: Abnormal neurological findings:??none.?Mental Status:??alert and oriented X 3,?Normal attention, orientation, memory and affect.?Cranial Nerves:??Pupils are equal, round and reactive to light. Fundoscopy shows normal disc bilaterally. External occular muscles are intact. Visual matta are full, no ptosis. Face is symmetrical, no facial weakness or droop. Facial sensations are normal. Tongue protrudes in midline. Palate elevates symmetrically. Shoulder shrugging is normal..?Motor Examination:??Normal muscle tone, bulk and strength,?No atrophy or fasciculations,?No drift of the extended upper extremities,?Deep tendon reflexes are 2+?,?Plantars are flexor?.?Motor Strength:?Proximal Muscles (out of 5):5Distal Muscles (out of 5):5Neck Flexors (out of 5):5Neck Extensors (out of 5):5Deltoid (out of 5):5Biceps (out of 5):5Triceps (out of 5):5Serratus Anterior (out of 5):5Wrist Extensors (out of 5):5APB (out of 5):5Finger Spread (out of 5):5Ileopsoas (out of 5):5Quadriceps (out of 5):5Hamstrings (out of 5):5Tibialis Anterior (out of 5):5Peronei (out of 5):5EDB (out of 5):5Gastrocnemius (out of 5):5Straight Leg Raising:??90 degrees.?Sensory Exam:??Normal light touch, temperature, pinprick, vibration and joint-position sensations?,?Rhomberg sign is absent.?Coordination:??no ataxia,?no titubation,?jwtdue-lk-twog, uxda-yqdb-kqfe test and rapid alternating movements were normal.?Gait Exam:??Within normal limits.?Cerebellar Signs:??Xompvy-kj-ybsz and jgkj-kh-cxio is normal,?no dysdiadochokinesia?.?Extrapyramidal System:??No tremor, rigidity with normal facial expressions,?No bradykinesia, no bradyphrenia. Normal arm swing and posture. No propulsion or retropulsion.?Speech:??Normal,?no dysphasia or dysarthria..? Mini Mental Status Exam: Level of Consciousness:??Alert.?Orientation:??Knows correct year, month, date, day and season,?Knows correct city, county and state. Knows correct location and floor.?Registration:??Able to register 3 objects.?Attention:??Serial 7's performed accurately.?Recall:??Able to recall 3 out of 3 objects.?Language:??Normal spontaneous speech, fluency, repetition,naming, comprehension, reading and writing.?Total Score:??30/30.? General Examination: GENERAL APPEARANCE:??normal,?in no acute distress.?HEAD:??normocephalic,?atraumatic.?EYES:??sclera non- icteric,?conjunctiva clear.?EARS:??auditory canal clear,?tympanic membrane intact, clear.?NOSE:??no lesions.?ORAL CAVITY:??gums normal,?mucosa moist,?no lesions.?THROAT:??clear.?NECK/THYROID:??no cervical lymphadenopathy,?thyroid normal,?neck supple, full range of motion,?no carotid bruit.?SKIN:??no rashes, ?no significant birthmarks.?HEART:??S1, S2 normal,?no murmurs.?LUNGS:??clear anteriorly and posteriorly.?CHEST:??no gross rib deformity,?clear to auscultation.?BACK:??normal exam of spine.?EXTREMITIES:??no edema.?PERIPHERAL PULSES:??normal.?PSYCH:??alert, oriented,?cognitive function intact,?cooperative with exam.? Assessment & Plan Assessment & Plan (1) Numbness and tingling of both lower extremities: Comment: December 2023: limited nerve conduction study of the lower extremity, consistent with a sensory neuropathy. No comment was made about the prolonged distal latencies in the motor nerves. EMG was confined to paraspinal muscles. 09/08/2024 labs including sed rate, CK, aldolase, B12 and folate, Lyme titers TSH were all within normal limits. 09/29/24 Follow up NCV/EMG of LE: Normal motor and sensory nerve conduction velocities in the lower extremities except for low motor and sensory amplitudes in the peroneal nerves bilaterally. EMG of the left L2-S1 innervated muscles is suggestive of mild distal neuropathic changes Code(s): R20.0 - Anesthesia of skin; R20.2 - Paresthesia of skin Category: Medical (2) Headache: Code(s): R51.9 - Headache, unspecified Category: Medical (3) Meningioma: Comment: surgically removed, sphenoid wing grade 1 Code(s): D32.9 - Benign neoplasm of meninges, unspecified Category: Medical (4) Spinal stenosis, lumbar region with neurogenic claudication: Code(s): M48.062 - Spinal stenosis, lumbar region with neurogenic claudication Category: Medical Plan Trial of Gabapentin 300mg hs was stopped as he could not drive. Did not tolerate 100mg hs either. Taking 400mg Magnesium and vitamins daily. MRI LS spine. Orders: Orders MR lumbar spine wo con Today M48.062 - Spinal stenosis, lumbar region with neurogenic claudication Coding Level of Care Code Est Pt Level 4 (62307) Diagnoses Numbness and tingling of both lower extremities R20.0; R20.2 Headache R51.9 Meningioma D32.9 Spinal stenosis, lumbar region with neurogenic claudication M48.062
== END 2025-01-05 09:49 | disposition home or self-care (01) ==
LOC: HO.HSM 09:02
PROVIDERS: PCP Nurse Practitioner Family; Visit Provider Psychiatry & Neurology Neurology
DX: R20.0 Anesthesia of skin (principal); R20.2 Paresthesia of skin; R51.9 Headache, unspecified; D32.9 Benign neoplasm of meninges, unspecified; M48.062 Spinal stenosis, lumbar region with neurogenic claudication
CPT/HCPCS: 99214

== ENCOUNTER 2025-01-25 09:37 | Outpatient (AMB) | payer OTHER, SELFPAY ==
--- NOTE | 2025-01-25 09:44 | A.OFFVIS_ITS ---
Vital Signs 01/25/25 09:45 Height 5 ft 9 in Weight 160 lb 14.999 oz BMI 23.8 BP 140/90 H Blood Pressure Location Lt brachial Position Sitting Pulse 58 Pulse Source Pulse Oximeter Pulse Oximetry (%) 98 Oxygen Delivery Method Room Air Intake Visit Reasons: COPD Intake Note: pt is here for follow up and states he started Wixela, not every day but a few times a week, little help. 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: No Allergies No Known Allergies (No Known Allergies*) Allergy (Verified 01/25/25 09:54) Medication List - Last Reconciled 01/25/25 by Stephane Cruz MD albuterol sulfate 90 mcg/actuation 1 inh inhalation Q6-8H PRN 30 days albuterol sulfate 2.5 mg inhalation Q4-6H PRN bupropion HCl SR 150 mg PO BID clonazepam 1 mg PO DAILY 30 days ferrous sulfate (Iron (ferrous sulfate)) 325 mg PO Q OTHER DAY fluoxetine 10 mg PO QAM fluticasone propion-salmeterol 250-50 mcg/dose (Wixela Inhub) 1 inh inhalation BID ipratropium-albuterol 0.5 mg-3 mg(2.5 mg base)/3 mL 3 mL inhalation Q6H magnesium oxide 400 mg PO DAILY multivit with min-folic acid 120 mcg (Centrum Adult 50 Plus Fresh-Fruity) 1 tab PO DAILY nicotine (Nicoderm CQ) 1 patch transdermal DAILY Do you need a note to return to daycare/school/sports/work: No HPI HPI COPD: Details: This 60 years old gentleman is here for follow-up. He is a case of past cigarettes smoking, has mild obstructive pulmonary disease, his main symptom used to be frequent cough. Now he has quit smoking, uses Wixela 250 mg usually once a day but sometime twice a day, and his cough is much less. He goes low-dose CT scan every year and it is benign category 1 so far. Patient wanted to have Education about future management. And we had a good discussion. FORMERLY [facility] Medical History Allergic rhinitis Peripheral neuropathy Myopathy History of meningioma of the brain HTN (hypertension) Dyslipidemia Asthma Nicotine dependence, cigarettes, uncomplicated Enlarged prostate Positive colorectal cancer screening using Cologuard test Psoriasis Renal calculi Surgical History History of craniotomy History of lithotripsy History of nasal septoplasty History of colonoscopy History of esophagogastroduodenoscopy (EGD) Family History Father No problems noted. Mother Alzheimer's disease Sister No problems noted. Sister No problems noted. Daughter No problems noted. Daughter No problems noted. Social History Housing: House Alcohol intake: unknown Patient Tobacco Use Status: Former Tobacco user Tobacco use type: Cigarette Cigarettes Per Day: 5 Years Smoked: (onset 15yo, 1/2 ppd x 43yrs, now 1/4ppd - 21pyh) e-Cigarette/Vaping Use: Never Used Substance Use Type: Marijuana service: No Current occupational status: disabled Cognitive needs: No Hearing needs: No Vision needs: Yes Review of Systems Const All systems reviewed & are unremarkable except as noted in HPI and below Eyes Reports no additional complaints ENT Reports nasal congestion and Reports nasal discharge Card Denies chest pain, Denies irregular heart rhythm and Denies leg edema Resp Reports as per HPI GI Reports no additional complaints Reports no additional complaints Musc Reports back pain and Reports other (Pain/discomfort in the thighs) Skin/Breast Reports system reviewed and no additional complaints, except as documented Neuro Reports no additional complaints Psych Reports anxiety and Reports depression (Controlled) Endo Reports no additional complaints Artem/Lymph Reports no additional complaints Aller/Immun Reports no additional complaints Physical Exam Vital Signs: Last Vital Signs Pulse 58 01/25/25 09:45 BP 140/90 H 01/25/25 09:45 Pulse Ox 98 01/25/25 09:45 Oxygen Delivery Method Room Air 01/25/25 09:45 BMI result Body Mass Index 23.8 Const General: healthy appearing, comfortable, no acute distress, alert and awake Orientation/consciousness: patient oriented x3 HEENT Head: Yes normal to inspection General nose exam: No nasal polyps present, No nasal discharge present and Other nasal findings present (Only minimal nasal congestion on both sides) Face and sinus: Yes sinuses nontender Mouth: oropharynx normal Throat: Yes posterior oropharynx normal Eyes General: appearance normal, both eyes and all related structures Neck Neck: Yes normal visual inspection, Yes no lymphadenopathy, Yes trachea midline and Yes no JVD Thyroid: Thyroid normal Chest Chest palpation & inspection: normal inspection of the chest, normal palpation of entire chest wall and no tenderness Resp Other: Chest is symmetrical and percussion note is resonant Breath sounds are slightly distant with prolonged expiratory phase. No wheezes or rhonchi are heard. Cardio Palpation: normal PMI Rate: regular rate Rhythm: regular rhythm Heart sounds: no gallops and no murmurs Peripheral pulses: Peripheral pulses 2+ throughout GI Palpation (GI): Soft to palpation, nontender, No hepatosplenomegaly present and no masses Auscultation: normal bowel sounds Back/Spine/Pelvis Thoracic/Lumbar Spine: thoracic and lumbar spine normal to inspection and thoraco-lumbar ROM limited Skin General skin exam: no rashes or lesions noted Neuro General: patient oriented x3 and no focal motor deficits Cranial nerves: Yes CN's II-XII intact bilaterally Extrem General: Yes normal to inspection, Yes no clubbing, cyanosis or edema and Yes no calf tenderness Psych Appearance: grossly normal and well kempt Speech and movement: Normal speech and movement present Results Reviewed Results Reviewed: Once again I reviewed the findings of pulmonary function test with him, should him that there was significant decrease in FEV1/FVC ratio and also in FEF 08/17/2074, c/w mild COPD. Assessment & Plan Assessment & Plan (1) COPD (chronic obstructive pulmonary disease): Comment: As per pulmonary function test, he does have mild obstructive airway disorder, without any significant improvement after bronchodilator therapy. These findings suggest COPD , and he may have some element of bronchial asthma, but it is now progressed into COPD. I explained to him that this is due to his long-time smoking and indicates that is time to quit smoking completely. He was started on Wixela 250-50 1 inhalation b.i.d. claims that his cough is much less and he does not get attacks of wheezing. So he is using Wixela of only once a day He does use albuterol in the nebulizer or albuterol inhaler but rarely. Code(s): J44.9 - Chronic obstructive pulmonary disease, unspecified Category: Medical Plan: Advised that he should use Wixela 250-50 1 inhalation at least once a day and if symptoms get worse then go to twice a day. Ipratropium-albuterol solution in the nebulizer Q 6 hours p.r.n., and for outdoors Combivent Respimat 1 inhalation Q 6 hours p.r.n.. Explained that the goal is to keep the usage of rescue med to the lowest possible . He does have a peak flow meter and advised to check his peak flow at least once or twice a week. Goal is to keep it 350-400 L (2) Nicotine dependence, cigarettes, uncomplicated: Comment: (current smoker - onset 15yo, 1/2 ppd x 43yrs, now 1/4ppd - 21pyh) He told me that he smokes 4 packs of cigarettes in 2 weeks, SINCE HIS LAST VISIT HE HAS QUIT SMOKING COMPLETELY. FOR HELP HE IS USING NICOTINE GUM. IT HELPS HIM MORE THAN THE NICOTINE PATCH. HE IS IN ANNUAL LUNG SCREENING PROGRAM . Code(s): F17.210 - Nicotine dependence, cigarettes, uncomplicated Category: Medical Plan: COMMENDED FOR NOT SMOKING. CONTINUE ANNUAL LUNG SCREENING (3) Allergic rhinitis: Comment: He has had long standing symptoms of nasal congestion with intermittent sneezing. He has been on allergy injections for many years. Currently getting once a month. I told him that it is very difficult to say whether he still needs the injections are not. But he can continue the injection once a month no need to go to more frequent usage. Code(s): J30.9 - Allergic rhinitis, unspecified Category: Medical Plan: MAY USE OTC ANTIHISTAMINIC AGENT SUCH LORATADINE 10 MG ONCE A DAY P.R.N. Coding Level of Care Code Est Pt Level 3 (34442) Diagnoses COPD (chronic obstructive pulmonary disease) J44.9 Nicotine dependence, cigarettes, uncomplicated F17.210 Allergic rhinitis J30.9
[2025-01-25 09:45] VITALS: BP 140/90; PULSE 58; O2SAT 98; BMI 23.8
== END 2025-01-25 10:11 | disposition home or self-care (01) ==
LOC: HO.HPS 09:38
PROVIDERS: PCP Nurse Practitioner Family; Visit Provider Internal Medicine
DX: J44.9 Chronic obstructive pulmonary disease, unspecified (principal); F17.210 Nicotine dependence, cigarettes, uncomplicated; J30.9 Allergic rhinitis, unspecified
CPT/HCPCS: 99213

== ENCOUNTER 2025-01-26 09:43 | Outpatient (AMB) | payer OTHER, SELFPAY | END 2025-01-26 09:44 | disposition home or self-care (01) | LOC: HO.HMGAL 09:43 | PROVIDERS: PCP Nurse Practitioner Family; Visit Provider Registered Nurse Emergency | DX: J30.89 Other allergic rhinitis (principal) | CPT/HCPCS: 95117; 95165 ==

== ENCOUNTER 2025-02-09 08:46 | Outpatient (AMB) | payer OTHER, SELFPAY ==
--- NOTE | 2025-02-09 08:57 | A.OFFVIS_ITS ---
Intake Visit Reasons: 6 weeks Allergies No Known Allergies (No Known Allergies*) Allergy (Verified 01/25/25 09:54) Medication List - Last Reconciled 02/09/25 by Stephane Whitney MD albuterol sulfate 90 mcg/actuation 1 inh inhalation Q6-8H PRN 30 days albuterol sulfate 2.5 mg inhalation Q4-6H PRN bupropion HCl SR 150 mg PO BID clonazepam 1 mg PO DAILY 30 days ferrous sulfate (Iron (ferrous sulfate)) 325 mg PO Q OTHER DAY fluoxetine 10 mg PO QAM fluticasone propion-salmeterol 250-50 mcg/dose (Wixela Inhub) 1 inh inhalation BID ipratropium-albuterol 0.5 mg-3 mg(2.5 mg base)/3 mL 3 mL inhalation Q6H magnesium oxide 400 mg PO DAILY multivit with min-folic acid 120 mcg (Centrum Adult 50 Plus Fresh-Fruity) 1 tab PO DAILY nicotine (Nicoderm CQ) 1 patch transdermal DAILY nicotine (polacrilex) (Nicorette) 2 mg buccal Q2H 30 days HPI Comments Details: 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 That night had severe cramp in right ant. thigh for 3 minutes. . Next night left calf cramp for 30 secs. 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 Puri. He now comes in with one to two-year history of low back pain and pain in his calves and thighs and periods of severe muscle cramping in??the thighs and on one occasion in the left biceps, that can last for a half hour. The legs are better . Gets more abnormal sensations in the night and it wakes him up. He gets up and moves around. 09/29/24 NCV/EMG of LE: Normal motor and sensory nerve conduction velocities in the lower extremities except for low motor and sensory amplitudes in the peroneal nerves bilaterally. EMG of the left L2-S1 innervated muscles is suggestive of mild distal neuropathic changes Labs Normal. [facility] Medical History Allergic rhinitis Peripheral neuropathy Myopathy History of meningioma of the brain HTN (hypertension) Dyslipidemia Asthma Nicotine dependence, cigarettes, uncomplicated Enlarged prostate Positive colorectal cancer screening using Cologuard test Psoriasis Renal calculi Surgical History History of craniotomy History of lithotripsy History of nasal septoplasty History of colonoscopy History of esophagogastroduodenoscopy (EGD) Family History Father No problems noted. Mother Alzheimer's disease Sister No problems noted. Sister No problems noted. Daughter No problems noted. Daughter No problems noted. Social History Housing: House Alcohol intake: unknown Patient Tobacco Use Status: Former Tobacco user Tobacco use type: Cigarette Cigarettes Per Day: 5 Years Smoked: (onset 15yo, 1/2 ppd x 43yrs, now 1/4ppd - 21pyh) e-Cigarette/Vaping Use: Never Used Substance Use Type: Marijuana service: No Current occupational status: disabled Cognitive needs: No Hearing needs: No Vision needs: Yes Review of Systems Const Details: ?Sleep:? Difficulty getting to sleepdenies.? Difficulty maintaining sleepdenies?.? Urge to move legsdenies.? Teeth grindingdenies.? Shouting or Kicking during sleep denies.? Abnormal behavior during sleepdenies.? Excessive sleepdenies.? Snoring denies.? Daytime sleepinessdenies. ???General/Constitutional:? Change in appetitedenies.? Chillsdenies.? Fatiguedenies.? Feverdenies.? Weight gaindenies.? Weight lossdenies. ???Ophthalmologic:? Blurred visiondenies.? Diminished visual acuitydenies. ???ENT:? Stuffinessdenies.? Decreased hearingdenies.? Dry mouthdenies.? Ear paindenies.? Nosebleeddenies.? Ringing in the earsdenies.? Sinus paindenies.? Sore throat denies.? Swollen glandsdenies. ???Endocrine:? Cold intolerancedenies.? Excessive thirstdenies.? Frequent urinationdenies.? Heat intolerancedenies. ???Respiratory:? Shortness of breathdenies.? Chest paindenies.? Coughdenies. ???Breast:? Breast lumpdenies.? Nipple dischargedenies. ???Cardiovascular:? Chest pain at restdenies.? Chest pain with exertiondenies.? Claudicationdenies .? Dizzinessdenies.? Fluid accumulation in the legsdenies.? Irregular heartbeat denies.? Palpitationsdenies. ???Gastrointestinal:? Abdominal paindenies.? Constipationdenies.? Diarrheadenies.? Difficulty swallowingdenies.? Heartburndenies.? Nauseadenies.? Rectal bleedingdenies. ???Hematology:? Easy bruisingdenies.? Prolonged bleedingdenies. ???Genitourinary:? Frequent urinationdenies.? Urgencydenies.? Incontinencedenies.? Erectile Dysfunctiondenies. ???Musculoskeletal:? Neck paindenies.? Back painYes..? Muscle aches Both thighs and calves and muscle cramps.? Painful jointsdenies.? Sciaticadenies.? Weaknesslegs. ???Podiatric:? Difficulty walkingdenies.? Foot numbnessdenies. ???Neurologic:? Difficulty swallowingdenies.? Balance difficultydenies.? Coordinationnormal.? Difficulty speakingdenies.? Dizzinessdenies.? Faintingdenies.? Gait abnormality denies.? Headachedenies.? Loss of strengthdenies.? Loss of use of extremity denies.? Low back paindenies.? Memory lossdenies.? Seizuresdenies.? Ticsdenies.? Tingling/Numbnessdenies.? Transient loss of visiondenies.? Tremordenies. ???Psychiatric:? Anxietydenies.? Auditory/visual hallucinationsdenies.? Delusionsdenies.? Depressed mooddenies.? Stressorsdenies.? Substance abusedenies.? Suicidal thoughtsdenies. Physical Exam Neuro Other: Neurological: Abnormal neurological findings:??none.?Mental Status:??alert and oriented X 3,?Normal attention, orientation, memory and affect.?Cranial Nerves:??Pupils are equal, round and reactive to light. Fundoscopy shows normal disc bilaterally. External occular muscles are intact. Visual matta are full, no ptosis. Face is symmetrical, no facial weakness or droop. Facial sensations are normal. Tongue protrudes in midline. Palate elevates symmetrically. Shoulder shrugging is normal..?Motor Examination:??Normal muscle tone, bulk and strength,?No atrophy or fasciculations,?No drift of the extended upper extremities,?Deep tendon reflexes are 2+?,?Plantars are flexor?.?Motor Strength:?Proximal Muscles (out of 5):5Distal Muscles (out of 5):5Neck Flexors (out of 5):5Neck Extensors (out of 5):5Deltoid (out of 5):5Biceps (out of 5):5Triceps (out of 5):5Serratus Anterior (out of 5):5Wrist Extensors (out of 5):5APB (out of 5):5Finger Spread (out of 5):5Ileopsoas (out of 5):5Quadriceps (out of 5):5Hamstrings (out of 5):5Tibialis Anterior (out of 5):5Peronei (out of 5):5EDB (out of 5):5Gastrocnemius (out of 5):5Straight Leg Raising:??90 degrees.?Sensory Exam:??Normal light touch, temperature, pinprick, vibration and joint-position sensations?,?Rhomberg sign is absent.?Coordination:??no ataxia,?no titubation,?ahdtbh-dc-[id number], h hrz-mneh-pdqt test and rapid alternating movements were normal.?Gait Exam:??Within normal limits.?Cerebellar Signs:??Xixdmx-mw-juol and gnju-kx-wydk is normal,?no dysdiadochokinesia?.?Extrapyramidal System:??No tremor, rigidity with normal facial expressions,?No bradykinesia, no bradyphrenia. Normal arm swing and posture. No propulsion or retropulsion.?Speech:??Normal,?no dysphasia or dysarthria..? Mini Mental Status Exam: Level of Consciousness:??Alert.?Orientation:??Knows correct year, month, date, day and season,?Knows correct city, county and state. Knows correct location and floor.?Registration:??Able to register 3 objects.?Attention:??Serial 7's performed accurately.?Recall:??Able to recall 3 out of 3 objects.?Language:??Normal spontaneous speech, fluency, repetition,naming, comprehension, reading and writing.?Total Score:??30/30.? General Examination: GENERAL APPEARANCE:??normal,?in no acute distress.?HEAD:??normo cephalic,?atraumatic.?EYES:??sclera non-icteric,?conjunctiva clear.?EARS:??auditory canal clear,?tympanic membrane intact, clear.?NOSE:??no lesions.?ORAL CAVITY:??gums normal,?mucosa moist,?no lesions .?THROAT:??clear.?NECK/THYROID:??no cervical lymphadenopathy,?thyroid normal,?neck supple, full range of motion,?no carotid bruit.?SKIN:??no rashes,?no significant birthmarks.?HEART:??S1, S2 normal,?no murmurs.?LUNGS:??clear anteriorly and posteriorly.?CHEST:??no gross rib deformity,?clear to auscultation.?BACK:??normal exam of spine.?EXTREMITIES:??no edema.?PERIPHERAL PULSES:??normal.?PSYCH:??alert, oriented,?cognitive function intact,?cooperative with exam.? Assessment & Plan Assessment & Plan (1) Numbness and tingling of both lower extremities: Comment: December 2023: limited nerve conduction study of the lower extremity, consistent with a sensory neuropathy. No comment was made about the prolonged distal latencies in the motor nerves. EMG was confined to paraspinal muscles. 09/08/2024 labs including sed rate, CK, aldolase, B12 and folate, Lyme titers TSH were all within normal limits. 09/29/24 Follow up NCV/EMG of LE: Normal motor and sensory nerve conduction velocities in the lower extremities except for low motor and sensory amplitudes in the peroneal nerves bilaterally. EMG of the left L2-S1 innervated muscles is suggestive of mild distal neuropathic changes Code(s): R20.0 - Anesthesia of skin; R20.2 - Paresthesia of skin Category: Medical (2) Headache: Code(s): R51.9 - Headache, unspecified Category: Medical (3) Meningioma: Comment: surgically removed, sphenoid wing grade 1 Code(s): D32.9 - Benign neoplasm of meninges, unspecified Category: Medical (4) Spinal stenosis, lumbar region with neurogenic claudication: Code(s): M48.062 - Spinal stenosis, lumbar region with neurogenic claudication Category: Medical Plan Trial of Gabapentin 300mg hs was stopped as he could not drive. Did not tolerate 100mg hs either. Taking 400mg Magnesium and vitamins daily. MRI LS spine 12/2021 reviewed Moderate to severe lateral spinal stenosis at L3- 4 and L4-5 from facet hypertrophy with root compression, and mild at L2-3 . Ref to pain clinic. Tramadol PRN Medications: New tramadol 50 mg PO Q8H PRN 60 tabs 1RF pain 30 days methocarbamol 750 mg PO TID 90 tabs 1RF 30 days Coding Level of Care Code Est Pt Level 4 (77099) Diagnoses Numbness and tingling of both lower extremities R20.0; R20.2 Headache R51.9 Meningioma D32.9 Spinal stenosis, lumbar region with neurogenic claudication M48.062
== END 2025-02-09 09:17 | disposition home or self-care (01) ==
LOC: HO.HSM 08:47
PROVIDERS: PCP Nurse Practitioner Family; Visit Provider Psychiatry & Neurology Neurology
DX: R20.0 Anesthesia of skin (principal); R20.2 Paresthesia of skin; R51.9 Headache, unspecified; D32.9 Benign neoplasm of meninges, unspecified; M48.062 Spinal stenosis, lumbar region with neurogenic claudication
CPT/HCPCS: 99214

== ENCOUNTER 2025-03-04 08:34 | Outpatient (AMB) | payer OTHER, SELFPAY ==
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
[2025-03-04 08:46] VITALS: BP 158/98; PULSE 77; O2SAT 98; BMI 24.3
[2025-03-04 08:47] VITALS: BP 147/95
== END 2025-03-04 09:34 | disposition home or self-care (01) ==
PROVIDERS: PCP Nurse Practitioner Family; Visit Provider Nurse Practitioner Family
DX: M54.50 Low back pain, unspecified (principal); M79.606 Pain in leg, unspecified; G89.29 Other chronic pain; G62.9 Polyneuropathy, unspecified; M48.062 Spinal stenosis, lumbar region with neurogenic claudication; M53.3 Sacrococcygeal disorders, not elsewhere classified; M51.369 Other intervertebral disc degeneration, lumbar region without mention of lumbar back pain or lower extremity pain; M47.817 Spondylosis without myelopathy or radiculopathy, lumbosacral region
CPT/HCPCS: 99204

== ENCOUNTER 2025-03-07 09:24 | Outpatient (AMB) | payer OTHER, SELFPAY | END 2025-03-07 09:25 | disposition home or self-care (01) | LOC: HO.HMGAL 09:24 | PROVIDERS: PCP Nurse Practitioner Family; Visit Provider Registered Nurse Emergency | DX: J30.89 Other allergic rhinitis (principal) | CPT/HCPCS: 95117; 95165 ==